=== PATIENT | male | born 1955 | race Caucasian/White ===

== ENCOUNTER 2017-11-08 11:15 | Inpatient (IN) | payer OTHER ==
[~2017-11-08] VITALS: Ht 190.5 cm; Wt 96.1 kg
[~2017-11-08 11:15] MED LIST: BUPROPION HCL100 MG PO; FISH OIL 1,0001 EAC3 PO; MELOXICAM15 MG PO; PERCOCET 5-3251 EACH PO; SIMVASTATIN40 MG PO; TRAZODONE HCL150 MG PO; XANAX1 MG PO
[2017-11-08] MEDS ORDERED: LIPITOR40 MG PO (11:31)
[2017-11-08] MEDS ORDERED: HYDROXYZINE PAM25 MG PO (11:31)
[2017-11-08] MEDS ORDERED: ZANAFLEX4 MG PO (11:31)
[2017-11-08] MEDS ORDERED: INDOMETHACIN75 MG PO (11:32)
[2017-11-08] MEDS ORDERED: HYDROMORPHONE HC2 MG PO (11:33)
[2017-11-08] MEDS ORDERED: ULTRAM50 MG PO (11:33)
--- NOTE | 2017-11-08 15:31 | NUR ---
PATIENT ADMITTED TO MED SURG VIA STRETCHER. PATIENT IS ALERT AND ORIENTED AND ABLE TO MOVE HIMSELF INDEPENDENTLY IN THE ROOM. PATIENT'S ABDOMINAL PAIN UPON ARRIVAL IS AT A 4/10 WHICH IS TOLERABLE FOR HIM. NG TUBE PLACED TO LIWS AND CLEAR FLUID DRAINING FROM HIS STOMACH AT THIS TIME. PATIENT'S IV FLUID HUNG AND RUNNING AT THIS TIME.
--- NOTE | 2017-11-08 16:59 | NUR ---
PATIENT ADMIT FROM ER. PATIENT TO FLOOR VIA STRETCHER. PATIENT TRANSFER TO BED BY SELF. PATIENT ASSESSMENT DONE. PATIENT DENIED NAUSEA, REPORTED 8/10 ABD PAIN. NG TUBE IN PLACE AND WAS PUT TO L/I/S. PATIENT WAS MEDICATED FOR PAIN. SKIN INTACT. ABD TENDER AND MILDLY DISTENDED, POSITIVE BOWEL TONE. LUNGS ARE CLEAR.
--- NOTE | 2017-11-08 17:08 | NUR ---
DR HANSEN IS IN ROOM TO EVALUATE PATIENT AND DISCUSS PLAN OF CARE.
--- NOTE | 2017-11-08 18:29 | NUR ---
PT IS RESTING IN BED SAFELY WITH CALL LIGHT IN REACH. PT HAS NOT BEEN ABLE TO VOID YET. PT ASKED FOR HIS XNANAX
--- NOTE | 2017-11-08 18:29 | NUR ---
PATIENT ADMIT FROM ED BY DR HANSEN FOR SBO. NG TUBE IN PLACE ON L/I/S. ABD MIDLY DISTENDED, POSITIVE BOWEL TONE. PATIENT IS A&O. PATIENT HAS SOME CHONIC BACK PAIN AND ON CHRONIC PAIN MEDS. IV FLUID D5LR @ 100ML/HR. LAB TO BE DONE IN THE AM.
--- NOTE | 2017-11-08 19:10 | NUR ---
SHIFT REPORT RECIEVED. PATIENT RESTING IN BED. COMPLAINING OF SOME DISCOMFORT FROM THE NG TUBE. IT IS HOOKED UP TO INTERMITTENT SUCTION. PATIENT DENIES NEEDS AT THIS TIME. CALL LIGHT IN REACH.
--- NOTE | 2017-11-08 19:20 | NUR ---
CONTACTED TO REQUEST CEPACOL LOZENGES. NEW ORDERS RECIEVED AND VERIFIED USING READ BACK METHOD.
--- NOTE | 2017-11-08 20:10 | NUR ---
EVENING MEDS GIVEN PER ORDER. PATIENT RESTING IN BED. AAOX3. REPORTS HIS CHRONIC BACK PAIN IS WELL CONTROLLED AT THIS TIME. DISCUSSED OPTIONS FOR PAIN CONTROL WITH HIM AND HE UNDERSTANDS WHAT IS AVAILABLE TO HIM. NO NEED FOR PRN PAIN MEDS AT THIS TIME. PATIENT DOES STATE THAT HIS THROAT IS SORE FROM THE NG TUBE, CEPACOL LOZENGE PROVIDED SOME RELIEF. THE NG TUBE IS HOOKED UP TO INTERMITTENT SUCTION AND IS PUTTING OUT A RED/BROWN SUBSTANCE. ABD IS SOFT BUT MODERATLY DISTENDED. BOWEL SOUNDS ACTIVE. LUNGS ARE CLEAR. PEDAL PULSES ARE STRONG, NO EDEMA NOTED. CMS INTACT. PATIENT REPORT OCCATIONAL NUMBNESS IN HIS TOES. LUNG SOUNDS ARE CLEAR, DIMINISHED IN THE BASED. IV FLUIDS INFUSING PER ORDER, SITE WNL.
--- NOTE | 2017-11-08 20:27 | NUR ---
ROUNDED CHARGE. PATIENT IS RESTING IN BED. NG LOW-INT SUCTION. NO NEEDS NOTED. CALL LIGHT IN REACH.
--- NOTE | 2017-11-08 21:15 | NUR ---
SCDS PLACED ON PATIENT. HE WAS UP TO THE BEDSIDE TO USE THE URNAL BUT THEN NEEDED TO HAVE A BM. PLUGGED THE NG TUBE AND ASSISTED HIM WITH THE IV POLE. PATIENT IN BATHROOM. WILL REQUEST ASSISTANCE WHEN HE IS READY.
--- NOTE | 2017-11-08 21:40 | NUR ---
PATIENT HAD SMALL LIQUID BM. PATIENT BACK IN BED. DENIES ANY NEEDS.
--- NOTE | 2017-11-08 22:45 | NUR ---
PATIENT APPEARS TO BE SLEEPING. RR 16. CALL LIGHT IN REACH.
--- NOTE | 2017-11-09 00:20 | NUR ---
PATIENT UP TO THE BATHROOM. REPORTS INCREASED ABD PAIN. 04/26. PRN PAIN MEDS PROVIDED.
--- NOTE | 2017-11-09 02:40 | NUR ---
PATIENT RESTING IN BED. URNAL EMPTIED. VS TAKEN. PATIENT HAS ORAL TEMP OF 99.8F. ENCOURAGED HIM TO COUGH AND DEEP BREATHE. PROVIDED IS FOR PATIENT TO PERFORM X5. TEMP CONTINUES TO BE 99.8F. WILL CONTINUE TO MONITOR. TEMP TURNED DOWN IN THE ROOM AND TOP COVER REMOVED. PATIENT REPORTS GOOD PAIN CONTROL AT THIS TIME. NO OTHER NEEDS. CALL LIGHT IN REACH.
--- NOTE | 2017-11-09 04:30 | NUR ---
PATIENT UP TO THE BATHROOM. HAD MORE LIQUID STOOL. COMPLAINS OF 8/10 PAIN. PRN PAIN MEDS PROVIDED. NO OTHER NEEDS AT THIS TIME.
--- NOTE | 2017-11-09 06:05 | NUR ---
MORNING VS DONE. PATIENT RESTING IN BED WATCHING TV. REPORTS GOOD PAIN CONTROL AT THIS TIME. PATIENT IS UNCOMFORTABLE WITH THE NG TUBE AND HAVING A RUNNY NOSE. DENIES NEED FOR PAIN MEDS. ABD IS MILDLY DISTENDED& TENDER. BOWEL SOUNDS ACTIVE. SCDS IN USE. NEW DRESSING APPLIED TO NOSE TO HOLD NG TUBE.
--- NOTE | 2017-11-09 06:10 | NUR ---
PATIENT SLEPT ON AND OFF THROUGHOUT THE SHIFT. NG TUBE IS HOOKED UP TO LOW INTERMITTENT SUCTION. PUTTING OUT RED/BROWN FLUID. PATIENT HAS TEMP OF 99.7F THIS AM. AWARE. ABD IS MILDLY DISTENDED, SOFT, AND TENDER. BOWEL SOUNDS ACTIVE. IV FLUIDS INFUSING, D5LR @100. PRN DILAUDID GIVEN X2. PATIENT HAS CHRONIC BACK PAIN WELL THE ABD PAIN. SBA, STEADY ON HIS FEET. SCDS. NPO WITH LOZENGES OR HARD CANDY.
--- NOTE | 2017-11-09 06:51 | NUR ---
MD ENTERED ORDERS TO MEASURE NG TUBE OUTPUT Q8H. OUTPUT HAS NOT BEEN MARKED SINCE NG WAS PLACED IN ED YESTERDAY. 600MLS ARE NOTED IN THERE AT THIS TIME.
--- NOTE | 2017-11-09 06:53 | NUR ---
PATIENT UP IN THE HALLWAY. WALKED 3 LARGE LAPS. STEADY ON HIS FEET.
--- NOTE | 2017-11-09 07:17 | NUR ---
BEDSIDE REPORT RECEIVED FROM HAILE. PATIENT AWAKE IN BED, NG TUBE IN PLACE ON L/I/S. IV SITE PATENT AND FLUID IS INFUSING WELL. PATIENT REPORTS NO NAUSEA AT THIS TIME. PATIENT WAS UP AMBULATING IN THE [address]. RESTING IN BED AT THIS TIME. CALL LIGHT IN REACH.
--- NOTE | 2017-11-09 08:40 | NUR ---
IN TO ROOM TO ASSESS PATIENT. PATIENT REPORTED 8/10 ABD PAIN. NG TUBE IN PLACE AND DRAINING CLEAR RED FLUID. PATIENT ASLO REPORTED THROAT DISCOMFORT FROM THE NG TUBE. ABD STILL MIDLY DISTENDED, POSITIVE BOWEL TONE. IV SITE PATENT AND FLUID INFUSING WELL. PATIENT IS ENCOURAGE TO AMBULATE. MORNING MEDS ADMINISTERED AND PATIENT WAS ALSO MEDICATED FOR PAIN. CALL LIGHT IN REACH.
[2017-11-09] MEDS ORDERED: ALPRAZOLAM1 MG PO (08:55)
[2017-11-09] MEDS ORDERED: DAILY MULTIPLE1 EACH PO (09:06)
--- NOTE | 2017-11-09 09:26 | NUR ---
MED REC COMPLETE
--- NOTE | 2017-11-09 09:58 | NUR ---
PT IS RESTING IN BED SAFELY WITH CALL LIGHT IN REACH. PT AGREED TO SHOWER BUT WOULD LIKE UNTIL AFTER HE IS DONE VISITING WITH HIS . PT DID NOT NEED ANYTHING ELSE AT THE MOMENT
--- NOTE | 2017-11-09 11:30 | NUR ---
PATIENT CALLED AND REQUESTED PAIN MEDS FOR / ABD/BACK PAIN. PATIENT WAS MEDICATED.NG TUBE WAS CLAMPE AND PATIENT WAS ASSISTED TO BATHROOM THEN BACK TO BED. NG TUBE WAS PUT BACK TO L/I/S. CALL LIGHT IN REACH.
--- NOTE | 2017-11-09 12:07 | NUR ---
PATIENT SITTING AT BEDSIDE, REPORTED 7/10 ABD PAIN. NG TUBE STILL IN PLACE DRAINING LIGHT RED FLUID. DENIES NAUSEA. PATIENT WAS MEDICATED FOR PAIN. RESTING AT THIS TIME. WILL CONTINUE TO MONITOR. CALL LIGHT IN REACH.
--- NOTE | 2017-11-09 13:42 | NUR ---
PT IS SITTING AT THE SIDE OF THE BED VISITING WITH FAMILY AND FRIENDS. PT DECIDED NOT TO SHOWER BUT DO A BED BATH INSTEAD. PT DID NOT NEED ANYTHING ELSE AT THE MOMENT
--- NOTE | 2017-11-09 15:00 | NUR ---
PATIENT RESTING IN BED APPEARS TO BE SLEEPING. RR EVEN/UNLABORED. NO APPARENT DISTRESS NOTED. WILL CONTINUE TO MONITOR.
--- NOTE | 2017-11-09 17:33 | NUR ---
PT IS RESTING IN BED WITH CALL LIGHT IN REACH. PT ASKED TO SPEAK TO
--- NOTE | 2017-11-09 18:30 | NUR ---
PATIENT HAD DONE WELL TODAY. HAD BEEN UP AMBULATING MULTIPLE TIME. NG TUBE IN PLACE TO L/I/S. VOIDED QS. ABD STILL MILDLY DISTENDED WITH POSITIVE BOWEL TONE. IV FLUID INFUSING WELL. 350ML OF FLUID FROM NG TUBE IN THE 8 HOURS. PATIENT STILL REPORTED THROAT DISCOMFORT DUE TO NG TUBE.
--- NOTE | 2017-11-09 19:20 | NUR ---
SHIFT REPORT RECIEVED. PATIENT RESTING IN BED. STATES HE WAS "MISERABLE" TODAY, BUT APPEARS TO BE IN GOOD SPIRITS AND MAKING JOKES. NO NEEDS AT THIS TIME.
--- NOTE | 2017-11-09 20:15 | NUR ---
SCHEDULED MEDS GIVEN PER ORDER. PATIENT REPORTS 8/10 PAIN, PRN PAIN MEDS PROVIDED. LOZENGE PROVIED FOR THROAT DISCOMFORT. NG TUBE IS PUTTING OUT MODERATE AMOUNT OF RED/BROWN OUTPUT. LUNGS ARE CLEAR. ABD IS MODERATELY DISTENDED, FIRM, TENDER, AND BOWEL SOUNDS ARE ACTIVE. NO NAUSEA. NO MORE LIQUID STOOL TODAY. PATIENT AMBULATED IN THE [place]ALLWAYS MULTIPLE TIMES TODAY AND IS REFUSING TO WEAR SCDS. EDUCATED PATIENT ON THE PURPOSE OF SCDS AND HE VERBILIZED UNDERSTANDING. IV FLUIDS INFUSING PER ORDER, SITE WNL. NO OTHER NEEDS AT THIS TIME.
--- NOTE | 2017-11-09 21:59 | NUR ---
ROUNDED CHARGE. PATIENT IS RESTING IN BED. NG LWIS. PATIENT DENIES ANY PAIN OR NAUSEA. PATIENT DENIES ANY COMMENTS, QUESTIONS, OR CONCERNS. CALL LIGHT IN REACH.
--- NOTE | 2017-11-09 23:30 | NUR ---
PRN PAIN MEDS PROVIDED FOR ABD PAIN 03/26. PATIENT COMPLAINED THAT THE BED IS NOT COMFORTABLE AND REQUEST TO MOVE TO THE COUGH. RN ADJUSTED BED SETTINGS TO MAKE IT MORE FIRM. PATIENT WILL LET ME KNOW IF THIS DOES NOT HELP. NO OTHER NEEDS AT THIS TIME.
--- NOTE | 2017-11-10 01:02 | NUR ---
patient up ambulating in the hallway. He unhooked himself from the suction and sucessfully plugged the NG tube. Discussed the importance of calling to allow RN to do that for him. He agrees to do this. Patient returned to the recliner in his room, reconnected to suction and is coloring. He denies any needs.
--- NOTE | 2017-11-10 02:00 | NUR ---
PATIENT REQUESTING PRN PAIN MEDS FOR 7/10 PAIN. PRN DILAUDID PROVIDED PER ORDERS.
--- NOTE | 2017-11-10 04:45 | NUR ---
PATIENT REQUESTING PRN PAIN MEDS FOR PAIN 7/10 IN ABD AND BACK. PATIENT IS FRUSTERATED WITH LACK OF SLEEP HE HAS HAD TONIGHT. DENIES ANY NEEDS. [facility] REGISTERED NURSE IN ROOM FOR VS.
--- NOTE | 2017-11-10 06:07 | NUR ---
PATIENT DID NOT SLEEP MUCH LAST NIGHT. HE REQUEST PRN PAIN MEDS X4. PAIN CONSISTENTLY AT 7/10. ABD APPEARS TO BE THE SAME START OF SHIFT, MODERATELY DISTENDED, TENDER, WITH ACTIVE BOWEL SOUNDS. NG TUBE IS ON LOW INTERMITTENT SUCTION, OUTPUT RECORDED Q8H, 1530 TO 2330 OUTPUT WAS 330ML. PATIENT WALKED INDEPENDENTLY IN THE HALLS AT LEAST 3 TIMES. FAMILY IN TO VISIT THIS MORNING.
--- NOTE | 2017-11-10 06:10 | NUR ---
PATIENT UP WALKING IN HALLWAYS. REQUESTING PRN PAIN MEDS. TOLD HIM THAT IT WAS NOT TIME YET AND HE STATED "I CAN WAIT, NO WORRIES". HE APPEARS TO BE IN GOOD SPIRITS.
--- NOTE | 2017-11-10 06:40 | NUR ---
ORDERED A SMALL BOWEL FOLLOW THROUGH. IMAGING CALLED. PATIENT AWARE OF THESE NEW ORDERS.
--- NOTE | 2017-11-10 07:45 | NUR ---
BEDSIDE REPORT FROM HAILE. PATIENT RESTING IN BED, REPORTS BACK AND ABD PAIN. PATIENT WAS MEDICATED. NG TUBE STILL IN PLACE. X-RAY SERIES IS IN PROGRESS. PATIENT DENIES NAUSEA.
--- NOTE | 2017-11-10 08:40 | NUR ---
IN TO PATIENT ROOM. PATIENT WAS ASSISTED TO THE BATHROOM. BACK TO BED. SHIFT ASSESSMENT DONE. NG TUBE IN PLACE AND PLUGGED AT THIS TIME FOR KUB TESTING. PATIENT REPORTED 7/10 ABD PAIN. PATIENT WWAS MEDICATED EARLIER FOR PAIN. IV SITE PATENT AND FLUID INFUSING. PATIENT DENIED NAUSEA. ABD TENDER AND MILDY DISTENDED. POSITIVE BOWEL TONE. DR HANSEN WAS IN TO SEE PATIENT EARLIER. CALL LIGHT IN REACH. WILL CONTINUE TO MONITOR.
--- NOTE | 2017-11-10 10:19 | NUR ---
PT WALKED TO BATHROOM, VOIDED, AND RETURNED TO BED. PT IS RESTING IN BED WITH CALL LIGHT IN REACH. PT DID NOT NEED ANYTHING AT THE MOMENT
--- NOTE | 2017-11-10 11:16 | NUR ---
PATIENT CALLED AND REQUEST PAIN MED FOR 8/10 BACK AND ABD PAIN. PATIENT WAS MEDICATED. PATIENT WAS ASSISTED TO BATHROOM AND HAD A BM. DENIES NAUSEA.
--- NOTE | 2017-11-10 13:57 | NUR ---
PT IS RESTING IN BED SAFELY WITH CALL LIGHT IN REACH. PT ASKED FOR SOME HARD CANDY
--- NOTE | 2017-11-10 15:23 | NUR ---
PATIENT RESTING IN THE CHAIR, REPORT THROAT DISCOMFORT DUE TO NG TUBE AND ABD PAIN RATE @ 7/10. PATIENT WAS MEDICATED AND CAFEPOL AND HARD CANDY GIVEN FOR COMFORT.CALL LIGHT IN REACH
--- NOTE | 2017-11-10 16:00 | NUR ---
PATIENT IS BACK TO BED RESTING. NG TUBE IN PLACE. NO OTHER REQUEST
--- NOTE | 2017-11-10 18:02 | NUR ---
PATIENT RESTING IN BED AT THIS TIME, APPEARS TO BE SLEEPING. NO APPARENT DISTRESS. NG TUBE IN PLACE TO L/I/S.
--- NOTE | 2017-11-10 18:23 | NUR ---
PATIENT HAD A FAIR DAY. KUB THIS AM POSITIVE FOR PARTIAL SBO. NG TUBE IN PLACE TO L/I/S. IV SITE PATENT AND FLUID INFUSING @ 100. PATIENT HAD MULTIPLE BMs TODAY. DIDAUDID FOR PAIN CONTROL. PATIENT HAD CHRONIC BACK PAIN. ABD MIDLY DISTENDED, POSITIVE BOWEL TONE. UP TO CHAIR AND AMBULATE.
--- NOTE | 2017-11-10 18:41 | NUR ---
PT IS RESTING IN BED WITH CALL LIGHT IN REACH AND EYES CLOSED, RESPERATIONS EVEN. PT AWOKE FOR VITALS THEN FELL BACK ASLEEP
--- NOTE | 2017-11-10 19:20 | NUR ---
RECEIVED REPORT FROM RN. PATIENT IS RESTING IN BED, BREATHING IS EVEN AND UNLABORED. FLACC SCORE OF 0. NGT TO LIS. CALL LIGHT WITHIN REACH.
--- NOTE | 2017-11-10 21:15 | NUR ---
PATIENT RESTING IN BED, BREATHING IS EVEN AND UNLABORED. REPORTS 8/10 PAIN IN BACK, PRN DILAUDID GIVEN PER EMAR. DENIES FURTHER NEEDS. ASSESSMENT DONE, SCHEDULED MEDICATIONS GIVEN. CALL LIGHT WITHIN REACH.
--- NOTE | 2017-11-10 23:18 | NUR ---
PATIENT REPORTS 8/10 PAIN IN BACK AND 5/10 PAIN IN ABD, PRN DILAUDID GIVEN PER EMAR. DENIES FURTHER NEEDS. O2 SATURATION IS 96% ON ROOM AIR, PULSE IS 91, RR IS 16. CALL LIGHT WITHIN REACH.
--- NOTE | 2017-11-11 00:33 | NUR ---
PATIENT RESTING COMFORTABLY IN BED, BREATHING IS EVEN AND UNLABORED. O2 SATURATION IS 92% ON ROOM AIR. FLACC SCORE OF 0. CALL LIGHT WITHIN REACH.
--- NOTE | 2017-11-11 01:53 | NUR ---
PATIENT REPORTS 7/10 PAIN IN BACK, 5/10 PAIN IN ABD. PRN DILAUDID GIVEN PER EMAR. DENIES FURTHER NEEDS. ASSESSMENT DONE. CALL LIGHT WITHIN REACH.
--- NOTE | 2017-11-11 03:57 | NUR ---
PATIENT REPORTS 8/10 PAIN IN BACK. PRN DILAUDID GIVEN PER EMAR. DENIES FURTHER NEEDS. CALL LIGHT WITHIN REACH.
--- NOTE | 2017-11-11 04:53 | NUR ---
PATIENT'S NIGHT WAS UNEVENTFUL. HE HAS BEEN RESTING IN BED THROUGHOUT SHIFT. VSS, URINE OUTPUT QS. PAIN WELL CONTROLLED. BOWEL TONES ARE ACTIVE, PATIENT HAS HAD NO NAUSEA THIS SHIFT, ABD MILDLY TENDER, MILDLY DISTENDED. NGT HAS MINIMAL DRAINAGE. SBA, IV FLUIDS INFUSING. NO ACUTE CHANGES.
--- NOTE | 2017-11-11 06:14 | NUR ---
PATIENT RESTING IN BED, BREATHING IS EVEN AND UNLABORED. REPORTS 8/10 PAIN IN BACK. PRN DILAUDID GIVEN. DENIES FURTHER NEEDS. NOW RESTING IN CHAIR. CALL LIGHT WITHIN REACH.
--- NOTE | 2017-11-11 07:15 | NUR ---
RECEIVED REPORT FROM DAY SHIFT RN. PT IN BED REQUESTING PAIN MEDICATION AND ANXETY MED. NG TUBE IN PLACE ON LIS. DUNCAN @ 100. CALL LGITH WITHIN REACH NO OTHER NEEDS AT THIS TIME.
--- NOTE | 2017-11-11 08:30 | NUR ---
MORNING MEDICATION GIVEN. PT IN BED FAMILY AT BEDSIDE. PT REPORTS PAIN 8/10 IN BACK. NG TUB IN PLACE ON LIS. EMESIS IS CLEAR IN COLOR. PT IS NPO AT THIS TIME. PT REQUESTING HIS LORAZAPAM THIS AM. CALL [facility] WITHIN REACH. NO OTHER NEEDS AT THIS TIME.
--- NOTE | 2017-11-11 08:34 | NUR ---
pateint was in bed, he requested medication, i reported to the nurse he needed no other assistance at the time.
--- NOTE | 2017-11-11 10:08 | NUR ---
PT VS AND I&O'S TAKEN AND DOCUMENTED. PT'S ONLY CONCERN IS WHEN HE IS GETTING HIS NG TUBE OUT. RN AWARE. PT HAS NO OTHER NEEDS AT THIS TIME. CALL LIGHT IS IN REACH.
--- NOTE | 2017-11-11 10:30 | NUR ---
PT SLEEPING ON RIGHT SIDE. TALKED ABOUT PLAN OF CARE AND NEW ORDERS RECIEVED. MORNING ASSESSMENT COMPLETE. PT BOWEL TONES ARE ACTIVE. ABDOMEN IS NONE TENDER. PT REPORTS CHRONIC BACK PAIN 8/10 IN BACK. ABDOMEN IS 3/10. PT IS A/O X3. NO OTHER NEEDS AT THIS TIME./
--- NOTE | 2017-11-11 11:00 | NUR ---
REMOVED NG TUBE. PT TOLLERATED WELL.
--- NOTE | 2017-11-11 12:12 | NUR ---
pt out walking the halls. tollerating we.. lunch at bedside. drank juice without n/v.
--- NOTE | 2017-11-11 13:20 | NUR ---
pt sleeping in bed. tollerated lunch well. ate 100%. no needs at this time. call latoya stout.
--- NOTE | 2017-11-11 14:12 | NUR ---
PT IS BACK TO BED FROM BATHROOM. PT'S VS AND I&O'S TAKEN AND DOCUMENTED. PT HAS FRESH ICE WATER ON HIS SIDE TABLE. PT HAS NO NEEDS AT THIS TIME. INFORMED PT TO CALL IF HE NEEDS ANYTHING. CALL LIGHT IS IN REACH.
--- NOTE | 2017-11-11 17:01 | NUR ---
PT WALED 4 LAPS IN THE [place]. REPORTS PAIN IN ABD 11/24. NO N/V TOLLERATED WELL. DINNER ORDERED. BACK PAIN REPEPORTED AT 03/26. 1.5 DILAUDID GIVEN. CALL [facility] WITH[facility] REACH. NO OTHER NEEDS AT THIS TIME.
--- NOTE | 2017-11-11 18:03 | NUR ---
PT WAS IN BED, HAD DINNER, VS DONE, PT NEEDED NOTHING ELSE AT THE TIME
--- NOTE | 2017-11-11 19:40 | NUR ---
BEDSIDE REPORT RECEIVED FROM EMIR. PATIENT RESTING IN BED REPORTS 8/10 BACK PAIN AND PATIENT WAS MEDICATED BY EMIR DURING REPORT. PATIENT DENIES NAUSEA AND REPORT MILD ABD TENDERNESS. IV FLUID INFUSING WELL. CALL LIGHT IN REACH.
--- NOTE | 2017-11-11 21:43 | NUR ---
IN TO ROOM TO ASSESS PATIENT. PATIENT RESTING IN BED REPORTS 7/10 BACK PAIN AND MILD ABD TENDERNESS. ABD SOFT AND POSITIVE BOWEL TONE. LUNGS CLEAR. PALPABLE PERIPHERAL PULSES. IV SITE PATENT AND FLUID INFUSING WELL. PATIENT WAS MEDICATED FOR PAIN. PM MEDS ADMINISTERED. PATIENT DENIES ANY NAUSEA. TOLERATED FULL LIQUID WELL. RESTING IN BED AT THIS TIME.WILL CONTINUE TO MONITOR
--- NOTE | 2017-11-12 00:17 | NUR ---
PATIENT CALLED AND REQUESTED PAIN MED. PATIENT WAS MEDICATED. RESTING IN BED AT THIS TIME. CALL LIGHT IN REACH.
--- NOTE | 2017-11-12 01:16 | NUR ---
IN ROOM TO CHECK ON PATIENT. PATIENT APPEARS TO BE SLEEPING AT THIS TIME. RR EVEN/UNLABORED. NO APPARENT DISTRESS. CALL LIGHT IN REACH. PATIENT WAS MEDICATED FOR PAIN EARLIER. WILL CONTINUE TO MONITOR.
--- NOTE | 2017-11-12 03:05 | NUR ---
PATIENT RESTING IN BED QUIETLY. NO APPARENT DISTRESS NOTED, RR EVEN/UNLABORED. CALL LIGHT IN REACH.
--- NOTE | 2017-11-12 05:39 | NUR ---
PATIENT HAD AN UNEVENTFUL NIGHT SLEPT ON AND OFF. NO NAUSEA. PAIN CONTROL WITH IV DILAUDID. BOWEL TONE ACTIVE ON ALL 4 QUADRANTS, ABD SOFT. LUNGS CLEAR. ADVANCED TO SOFT DIET. TOLERATED FULL LIQUID WELL YESTERDAY. IV SITE PATENT AND FLUID (D5LR) INFUSING @ 1OOML/HR. JANUARY D/C HOME TODAY.
--- NOTE | 2017-11-12 07:08 | NUR ---
recieved report from manager primary care rn. pt in bed, sl. ordered breakfast. requsted morning meds before being dischearged. personal items and call light at bedside. no other needs at this time.
--- NOTE | 2017-11-12 07:50 | NUR ---
PT IS UP IN THE CHAIR FOR BREAKFAST. PT IS ANXIOUS TO LEAVE, BUT STATES HE HAS NO NEEDS AT THIS TIME. CALL LIGHT IS IN REACH.
--- NOTE | 2017-11-12 08:54 | NUR ---
PT AWAKE AND ALERT IN ROOM. IVF DISCONTINUED PATIENT IS DISCHARGING HOME. SCHEDULED MEDS GIVEN THIS MORNING. PAIN 8/10 IN BACK. WILL TALK WITH CHARGE NURSE ABOUT GIVING IV PAIN MEDS BEFORE DISCHARGE. PATIENT WATCHING TELEVISION NOW.
--- NOTE | 2017-11-12 09:18 | NUR ---
DC'D IV. GAVE DISCHARGE INSTRUCRTIONS. ASSESSMENT COMPLETE. LUNGS CLEAR HEART SOUND REGULAR. RR WNL. CHRONIC PAIN 04/26. BOWEL TONES ACTIVE. NO N/V. BOWEL MOVEMETN TODAY.
--- NOTE | 2017-11-14 06:10 | DS ---
[facility] [address], [place] [address] Signed ADMISSION DATE: 11/08/2017 DISCHARGE DATE: 11/12/2017 FINAL DIAGNOSIS: Resolved partial small bowel obstruction. PROCEDURES: 1. CT scan of abdomen and pelvis. 2. Small bowel follow through. HISTORY OF PRESENT ILLNESS: Tiffanie is a 62-year-old gentleman who underwent a radical prostatectomy in March [address] Kevin Martin. He finished up his radiation therapy in August 2017. He has been doing fine. He developed some generalized abdominal pain with nausea, but no vomiting. He came to emergency room for evaluation. HOSPITAL COURSE: Kevin was seen in the ER and found to have good vital signs. His abdomen was a little distended and mildly diffusely tender with a small umbilical hernia. White count was at 10.[address] scan showed what looked like a small bowel obstruction in the central abdomen. He had a little mild ascites as well, but no metastatic disease. Therefore, he was admitted to the hospital under my service with an NG tube. We treated him conservatively with inhaled antibiotics. He improved each day. 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 I did review that with him. We then ordered a small bowel followthrough and he did well. It looked like maybe there was still a partial obstruction. We went ahead and pulled the NG tube and started him on clear liquid diet and advanced that and he has done quite well. Today, he feels like he is at his baseline. His abdominal exam was benign. It is soft and flat, nontender and is ready to go home. DISCHARGE PLANS AND MEDICATIONS: Tiffanie will be discharged to home with no new medications. He can resume all his previous medications. He is welcome to take diet as tolerated. He can perform his activities of daily living as usual. He is welcome to see me in the office as needed. He will maintain his usual follow up with his primary care provider and his urologist. He has expressed understanding and agrees with the above plan. Electronically Signed By: ORIN LEONARD MD 11/14/17 0610 PATIENT NAME: TIFFANIE RODRIGUEZ DISCHARGE SUMMARY DATE OF : 51 REPORT #: [id number] PHYSICIAN: ORIN LEONARD MD PCP: GARRY WESLEY MD REPORT IS CONFIDENTIAL AND NOT TO BE RELEASED WITHOUT AUTHORIZATION [address] [address] Signed Orin Leonard MD [facility]/MODL /[id number] cc: MD Kevin Oliveira MD Christopher Lundquist, MD Copies: ORIN LEONARD MD, JOHN MD LUNDQUIST, CHRISTOPHER MD ~ Electronically Signed By: ORIN LEONARD MD 11/14/17 0610 PATIENT NAME: TIFFANIE RODRIGUEZ DISCHARGE SUMMARY DATE OF : 51 REPORT #: [id number] PHYSICIAN: ORIN LEONARD MD PCP: GARRY WESLEY MD REPORT IS CONFIDENTIAL AND NOT TO BE RELEASED WITHOUT AUTHORIZATION
--- NOTE | 2017-11-14 06:10 | CONS ---
[facility] [address], [place] [address] Signed DATE OF CONSULTATION: 11/08/2017 CHIEF COMPLAINT: Generalized abdominal pain with nausea. HISTORY OF PRESENT ILLNESS: Tiffanie is a 62-year-old gentleman, who just had his radical prostatectomy in March 2017, and finished up his radiation treatment in August 2017. In general, he has been doing well. However, yesterday he developed generalized abdominal pain with nausea, but no vomiting. He came to the emergency room for evaluation. White count is borderline at 10.3. His abdomen was mildly distended, and mildly and diffusely tender. A CT scan confirmed small bowel obstruction with some mild ascites, but no evidence of any metastatic disease. In the meantime, an NG tube was then placed and confirmed with a chest x-ray. He has been admitted to the floor and I was asked to see him as a general surgeon on-call. PAST MEDICAL HISTORY: Prostate cancer, abdominal aortic aneurysm 3.4 cm, atherosclerosis of the bilateral iliac arteries, diverticulosis, hypercholesterolemia, and anxiety. PAST SURGICAL HISTORY: Includes his radical prostatectomy in March 2017, with Dr. Mary Martin, and radiation therapy with Dr. Lindsay Joshi. He has also had a lump removed from his groin. SOCIAL HISTORY: Still smokes half pack of cigarettes a day. He does not drink. Dr. Pranav Wesley, is his primary care provider. His lifelong friend is Belle Barber, at [phone]. 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 He has two children. He prefers the [facility], in [place]. FAMILY HISTORY: He was an orphan, but he knows his brother of non-Hodgkin's lymphoma. His other brother had a brain cancer. Mom had breast cancer. REVIEW OF SYSTEMS: He had 10 systems reviewed and really nothing new. ALLERGIES: Codeine. MEDICATIONS: 1. Alprazolam. 2. Trazodone. Electronically Signed By: ORIN LEONARD MD 11/14/17 0610 PATIENT NAME: TIFFANIE RODRIGUEZ CONSULTATION DATE OF : 51 REPORT #: [id number] PHYSICIAN: ORIN LEONARD MD PCP: PRANAV WESLEY MD REPORT IS CONFIDENTIAL AND NOT TO BE RELEASED WITHOUT AUTHORIZATION [facility] [address], [place] [address] Signed 3. Fish oil. 4. Hydroxyzine. 5. Atorvastatin. 6. Tizanidine. 7. Indomethacin. 8. Tramadol. 9. Dilaudid. PHYSICAL EXAMINATION: VITAL SIGNS: Blood pressure 134/65, his heart rate is 87, respiratory rate 16, temperature is 97.4. He is 96% on room air. He is 6 feet 3 inches, and 86 kg. GENERAL: Tiffanie is a 62-year-old gentleman, lying supine in his hospital bed, watching TV. He has an NG-tube in place with generally clear gastric fluid. He does not appear systemically ill or toxic. He appears to be a good historian. LUNGS: Clear to auscultation bilaterally. HEART: Regular rate and rhythm. ABDOMEN: Mildly distended, mildly and diffusely tender. He has a small incarcerated umbilical hernia. LABORATORY DATA: His white blood cell count is 10.3, hemoglobin 13, neutrophils 77. His BUN 24, creatinine 1.72. Urinalysis is equivocal. His liver function tests are negative. Lipase negative. Albumin is 4.2. RADIOGRAPHIC STUDIES: A chest x-ray shows the NG-tube in his stomach with dilated small bowel loops, lungs are clear. CT scan of the abdomen and pelvis shows a small bowel obstruction, possibly in the central abdomen with some mild ascites, and no evidence of any mass. ASSESSMENT AND PLAN: Tiffanie is a 62-year-old gentleman, who presents with a small bowel obstruction after his radical prostatectomy and radiation therapy. We are going to treat him conservatively for a few days and if does not improve, he will end up needing surgery. I have reviewed this with Tiffanie. He has expressed understanding and agrees with above plan. Orin Leonard MD ALB/MODL /[id number] Electronically Signed By: ORIN LEONARD MD 11/14/17 0610 PATIENT NAME: TIFFANIE RODRIGUEZ CONSULTATION DATE OF : 51 REPORT #: [id number] PHYSICIAN: ORIN LEONADR MD PCP: PRANAV WESLEY MD REPORT IS CONFIDENTIAL AND NOT TO BE RELEASED WITHOUT AUTHORIZATION [address] [address] Signed cc: MD Mary Campos MD Andrew L Bower, MD Kristen M O'Donnell, MD Copies: PRANAV WESLEY MD,AMRY LEONARD,ORIN JOSHI,LINDSAY Hopper MD ~ Electronically Signed By: ORIN LEONARD MD 11/14/17 0610 PATIENT NAME: TIFFANIE RODRIGUEZ DREW CONSULTATION DATE OF : 51 REPORT #: [id number] PHYSICIAN: ORIN LEONARD MD PCP: PRANAV WESLEY MD REPORT IS CONFIDENTIAL AND NOT TO BE RELEASED WITHOUT AUTHORIZATION
== END 2017-11-12 09:25 | disposition home or self-care (01) | DRG 390 ==
LOC: ED 11:15 → MS 14:29
PROVIDERS: ADMIT Colon & Rectal Surgery
PROC: 0D9670Z Drainage of Stomach with Drainage Device, Via Natural or Artificial Opening (ICD-10-PCS; principal; 2017-11-08)
DX: K56.600 Partial intestinal obstruction, unspecified as to cause (principal); K42.9 Umbilical hernia without obstruction or gangrene; I71.4 Abdominal aortic aneurysm, without rupture; F41.9 Anxiety disorder, unspecified; E78.00 Pure hypercholesterolemia, unspecified; K57.90 Diverticulosis of intestine, part unspecified, without perforation or abscess without bleeding; F17.210 Nicotine dependence, cigarettes, uncomplicated; I70.209 Unspecified atherosclerosis of native arteries of extremities, unspecified extremity; Z85.46 Personal history of malignant neoplasm of prostate; Z92.3 Personal history of irradiation
CPT/HCPCS: 36415; 43752; 51798; 71045; 74176; 74250; 80048; 80053; 81001; 83690; 83735; 84100; 85025; 94660; 96361; 96374; 96375; 99285; 99407; J1170; J1200; J1644; J2060; J2405; J7030; J7120

== ENCOUNTER 2020-05-08 17:03 | Emergency (ER) | payer MEDICARE, OTHER ==
[~2020-05-08] VITALS: Ht 190.5 cm; Wt 85.7 kg
--- OUTSIDE RECORDS SUMMARY | ~2020-05-08 | XMS | Encounter Summary ---
Demographics + + + | Address | [address] | | | [place] [address] | + + + | Home Phone | | + + + | Preferred Language | Unknown | + + + | Marital Status | Single | + + + | Jew Affiliation | Unknown | + + + | Race | White | + + + | Ethnic Group | Not or | + + + Author + + + | Author | [facility] | | | and [place] | + + + | Organization | [facility] | | | and [place] | + + + | Address | Unknown | + + + | Phone | Unavailable | + + + Support + + +---------+ + | Name | Relationship | Address | Phone | + + +---------+ + | Belle Kelley | ECON | Unknown | | + + +---------+ + Care Team Providers + +------+ + | Care Overlock Operator Name | Role | Phone | + +------+ + | Pranav Auguste MD | PCP | | + +------+ + Encounter Details +--------+ + + + + | Date | Type | Department | Care Team | Description | +--------+ + + + + | 07/10/ | Episode | [facility] | Brittany Rapp, | | | 2018 | Changes | GASTROENTEROLOGY | RN | | | | | [address] [place] | | | | | | [address] [place] | | | | | | [address] | | | | | | [phone] | | | +--------+ + + + + Social History + + + +--------+------+ | Tobacco Use | Types | Packs/Day | Years | Date | | | | | Used | | + + + +--------+------+ | Current Every Day | Cigarettes | 1 | 49 | | | Smoker | | | | | + + + +--------+------+ + +---+---+---+ | Smokeless Tobacco: | | | | | Former User | | | | + +---+---+---+ + + | Comments: smoking 1 cigarette per day | + + + + +---------+ + | Alcohol Use | Drinks/Week | oz/Week | Comments | + + +---------+ + | No | | | Quit drinking in | | | | | 2007 | + + +---------+ + + + + | Sex Assigned at | Date Recorded | | | | + + + | Not on file | | + + + documented as of this encounter Plan of Treatment +--------+ + + + + | Date | Type | Specialty | Care Team | Description | +--------+ + + + + | 02/02/ | Appointment | Radiation Oncology | Brynn Bahena | | | 2020 | | | MD Marcelo [address] | | | | | | [address] [place] | | | | | | [phone] | | | | | | | | +--------+ + + + + documented as of this encounter Visit Diagnoses Not on filedocumented in this encounter"
--- OUTSIDE RECORDS SUMMARY | ~2020-05-08 | XMS | Clinical Summary ---
Demographics + + + | Address | [address] | | | [place] [address] | + + + | Home Phone | | + + + | Preferred Language | Unknown | + + + | Marital Status | Single | + + + | Buddhist Affiliation | Unknown | + + + | Race | White | + + + | Ethnic Group | Not or | + + + Author + + + | Author | [facility] | | | and [place] | + + + | Organization | [facility] | | | and [...] Team Providers + +------+ + | Care Burn Out Tender Lace Name | Role | Phone | + +------+ + | Darlin Jain MD | PCP | | + +------+ + Allergies + + + + + + | Active Allergy | Reactions | Severity | Noted | Comments | | | | | Date | | + + + + + + | Codeine | Nausea Only | Low | 03/29/20 | | | | | | 17 | | + + + + + + Medications + + + +---------+------+------+-------+ | Medication | Sig | Dispensed | Refills | Star | End | Statu | | | | | | t | Date | s | | | | | | Date | | | + + + +---------+------+------+-------+ | atorvaSTATin | Take 40 mg by mouth | | 0 | 06/2 | | Activ | | (LIPITOR) 40 mg | nightly. | | | 4/20 | | e | | tablet | | | | 17 | | | + + + +---------+------+------+-------+ | tiZANidine | Take 4 mg by mouth 2 | | 0 | 06/0 | | Activ | | (ZANAFLEX) 4 mg | times daily. | | | 8/20 | | e | | tablet | | | | 17 | | | + + + +---------+------+------+-------+ | Loratadine 10 MG | Take 10 mg by mouth | | 0 | | | Activ | | CAPS | Daily. | | | | | e | + + + +---------+------+------+-------+ | fish oil 1,000 mg | Take 2,000 mg by | | 0 | | | Activ | | capsule | mouth nightly. | | | | | e | + + + +---------+------+------+-------+ | Multiple Vitamin | Take 1 tablet by | | 0 | | | Activ | | (MULTI-VITAMIN PO) | mouth Daily. | | | | | e | + + + +---------+------+------+-------+ | polyethylene | Take 17 g by mouth | | 0 | | | Activ | | glycol (MIRALAX) | nightly as needed. | | | | | e | | powder | | | | | | | + + + +---------+------+------+-------+ | hydrOXYzine | Take 25 mg by mouth | | 0 | 06/2 | | Activ | | hydrochloride | every 6 hours as | | | 02/03 | | e | | (ATARAX) 25 mg | needed. | | | 18 | | | | tablet | | | | | | | + + + +---------+------+------+-------+ | diclofenac | Take 1 tablet by | | 0 | 07/1 | | Activ | | (VOLTAREN) 50 mg EC | mouth 2 times daily. | | | 12/04 | | e | | tablet | | | | 19 | | | + + + +---------+------+------+-------+ | ALPRAZolam (XANAX) | Take 0.5 mg by mouth | | 0 | 06/0 | | Activ | | 1 MG tablet | 2 times daily. | | | 12/04 | | e | | | | | | 19 | | | + + + +---------+------+------+-------+ | DULoxetine | Take 30 mg by mouth | | 0 | 06/2 | | Activ | | (CYMBALTA) [address] | Daily. | | | 7/20 | | e | | capsule | | | | 19 | | | + + + +---------+------+------+-------+ | rOPINIRole | Take 1 tablet by | | 0 | 07/1 | | Activ | | (REQUIP) 3 MG tablet | mouth nightly. | | | 3/20 | | e | | | | | | 19 | | | + + + +---------+------+------+-------+ | traZODone | Take 1 tablet by | | 0 | 02/1 | | Activ | | (DESYREL) 150 MG | mouth nightly. | | | 8/20 | | e | | tablet | | | | 19 | | | + + + +---------+------+------+-------+ | oxybutynin | Take 1 tablet by | 30 | 5 | 08/3 | | Activ | | (DITROPAN-XL) 10 MG | mouth Daily. | tablet | | 0/20 | | e | | 24 hr tablet | | | | 19 | | | + + + +---------+------+------+-------+ +---+ + | | Additional | | | InformationPatient | | | taking differently: | | | 20 mg Oral DAILY, | | | Reported on | | | 02/02/2020 9:47 AM | +---+ + + + +---+---+------+---+-------+ | cyclobenzaprine | Take 1 tablet by | | 0 | 10/18 | | Activ | | (FLEXERIL) 10 mg | mouth Twice daily | | | 04/05 | | e | | tablet | as needed. | | | 20 | | | + + +---+---+------+---+-------+ | divalproex | Take 500 mg by mouth | | 0 | 04/2 | | Activ | | (DEPAKOTE ER) 500 mg | Daily. | | | 10/06 | | e | | 24 hr tablet | | | | 20 | | | + + +---+---+------+---+-------+ | oxyCODONE | Take 7.5 mg by mouth | | 0 | 04/2 | | Activ | | (ROXICODONE) 15 mg | EVERY 4 TO 6 HOURS | | | 10/06 | | e | | immediate release | NEEDED. | | | 20 | | | | tablet | | | | | | | + + +---+---+------+---+-------+ Active Problems + + + | Problem | Noted Date | + + + | Urinary tract infection symptoms | 04/09/2019 | + + + | Abdominal aneurysm | 12/02/2018 | + + + | Adrenal nodule | 12/02/2018 | + + + | History of colonic polyps | 07/29/2018 | + + + | History of prostate cancer | 07/29/2018 | + + + | Constipation | 07/29/2018 | + + + | History of small bowel obstruction | 07/29/2018 | + + + | Generalized abdominal pain | 04/02/2018 | + + + | Depression with anxiety - Anxiolytic Use | 03/29/2017 | + + + | Prostate Cancer - Clinical [facility] [place] 4+3 carcinoma | 03/29/2017 | + + + + + | Overview: PSA was 4.11 October 2016 with a repeat PSA of 4.23 | | and normal urinalysis 01/11/17. His prostate had a raised | | slightly fixed left inferior 10 mm nodule. Transrectal | | ultrasound 01/25/17 measured a 22 cc gland. Clinical [facility] [place] | | 4+3 carcinoma is recovered with dominant disease in the left mid | | and left inferior peripheral zone, but a tiny percentage core | | positive in the right superior gland. Bicalutamide was initiated | | 02/03/17. | + + + + + | Nodular prostate with urinary obstruction | 03/29/2017 | + + + | Smoker - Daily | 03/29/2017 | + + + Resolved Problems + + + + | Problem | Noted | Resolved | | | Date | Date | + + + + | Recovering alcoholic in remission | 03/29/20 | | | | 17 | 8 | + + + + Encounters +--------+---------+ + + + | Date | Type | Specialty | Care Team | Description | +--------+---------+ + + + | 05/07/ | Office | Neurosurgery | Jules Simmons, | Chronic midline low | | 2020 | Visit | | PET CAREGIVER | back pain without | | | | | | sciatica (Primary | | | | | | Dx); Degenerative | | | | | | disc disease, | | | | | | lumbar; Lumbar facet | | | | | | arthropathy | +--------+---------+ + + + | 03/26/ Office | Neurosurgery | Jules Simmons, | Chronic midline low | | 2020 | Visit | | PET CAREGIVER | back pain without | | | | | | sciatica (Primary | | | | | | Dx); Lumbar facet | | | | | | arthropathy; | | | | | | Degenerative disc | | | | | | disease, lumbar | +--------+---------+ + + + from Last 3 Months Immunizations + + + + | Name | Administration Dates | Next Due | + + + + | INFLUENZA PF 4Y OR | 07/04/2017 | | | >,QUAD DERIVED FROM | | | | TISS-CULT | | | + + + + | INFLUENZA PF | 06/16/2016 | | | QUAD(PED/ADOL/ADULT) | | | | ,PSKT or VIAL | | | + + + + | INFLUENZA PF | 08/01/2014, 07/18/2013 | | | TRIVALENT(PED/ADOL/A | | | | DULT), PSKT | | | + + + + | INFLUENZA, | 07/04/2017, 08/01/2014, 07/18/2013 | | | UNSPECIFIED | | | | FORMULATION | | | + + + + | ZOSTER, 1 DOSE | 08/07/2014 | | | (ZOSTAVAX) | | | + + + + Family History + + +------+ + | Medical History | Relation | Name | Comments | + + +------+ + | Brain cancer | Brother | | | + + +------+ + | Lymphoma | Brother | | | + + +------+ + | Cancer | Mother | | breast, brain | + + +------+ + | Lymphoma | Mother | | Hodgkin's | + + +------+ + + +------+ + + | Relation | Name | Status | Comments | + +------+ + + | Brother | | | | + +------+ + + | Brother | | | | + +------+ + + | Father | | | | + +------+ + + | Mother | | | | + +------+ + + Social History + + + +--------+ + | Tobacco Use | Types | Packs/Day | Years | Date | | | | | Used | | + + + +--------+ + | Former Smoker | Cigarettes | 0.25 | 47 | Quit: 09/17/2018 | + + + +--------+ + + +---+---+---+ | Smokeless Tobacco: | | | | | Former User | | | | + +---+---+---+ + + | Tobacco Cessation: Ready to Quit: Yes | + + + + +---------+ + [...] on file | | + + + Last Filed Vital Signs + + + + + | Vital Sign | Reading | Time Taken | Comments | + + + + + | Blood Pressure | 134/82 | 05/07/2020 1:10 PM | | | | | PDT | | + + + + + | Pulse | 87 | 05/07/2020 1:10 PM | | | | | PDT | | + + + + + | Temperature | 36.4 C (97.5 F) | 04/09/2019 11:06 AM | | | | | PDT | | + + + + + | Respiratory Rate | 16 | 04/09/2019 11:06 AM | | | | | PDT | | + + + + + | Oxygen Saturation | 97% | 04/09/2019 11:06 AM | | | | | PDT | | + + + + + | Inhaled Oxygen | - | - | | | Concentration | | | | + + + + + | Weight | 79.5 kg (175 lb 4.8 | 05/07/2020 1:10 PM | | | | oz) | PDT | | + + + + + | Height | 188 cm (6' 2") | 05/07/2020 1:10 PM | | | | | PDT | | + + + + + | Body Mass Index | 22.51 | 05/07/2020 1:10 PM | | | | | PDT | | + + + + + Plan of Treatment +--------+ + + + + | Date | Type | Specialty | Care Team | Description | +--------+ + + + + | 02/02/ | Appointment | Radiation Oncology | Brynn Bahena | | | 2020 | | | MD Marcelo [address] | | | | | | [address] [place] | | | | | | [address] | | | | | | | | +--------+ + + + + + + + + + | Health Maintenance | Due Date | Last | Comments | | | | Done | | + + + + + | Hepatitis C | | | | | Screening | 3 | | | + + + + + | Med Mgmt: ALT | | | | | | 3 | | | + + + + + | Med Mgmt: AST | | | | | | 3 | | | + + + + + | Med Mgmt: BUN | | | | | | 3 | | | + + + + + | Med Mgmt: Cr | | | | | | 3 | | | + + + + + | Med Mgmt: HCT | | | | | | 3 | | | + + + + + | Med Mgmt: HGB | | | | | | 3 | | | + + + + + | Med Mgmt: PLT | | | | | | 3 | | | + + + + + | Med Mgmt: RBC | | | | | | 3 | | | + + + + + | Med Mgmt: Valproic | | | | | Acid | 3 | | | + + + + + | Med Mgmt: WBC | | | | | | 3 | | | + + + + + | Med Mgmt: eGFR | | | | | | 3 | | | + + + + + | Medication | | | | | Management | 3 | | | + + + + + | Urine Drug Screening | | | | | | 9 | | | + + + + + | Vaccine: | | | | | Dtap/Tdap/Td (1 - | 2 | | | | Tdap) | | | | + + + + + | Vaccine: Zoster (2 | | 08/07/20 | | | of 3) | 5 | 14 | | + + + + + | Adult Annual | | | | | Wellness Visit | 7 | | | + + + + + | AAA Screening | | 06/06/20 | | | | 8 | 18 | | + + + + + | Vaccine: | | | | | Pneumococcal 65+ (1 | 8 | | | | of 1 - PPSV23) | | | | + + + + + | Vaccine: Influenza | | 07/10/20 | | | (#1) | 0 | 19, | | | | | 07/04/20 | | | | | 17, | | | | | 07/04/20 | | | | | 17, | | | | | Addition | | | | | al | | | | | history | | | | | exists | | + + + + + | Colorectal Cancer | | 07/31/20 | | | Screening | 3 | 18, | | | (Colonoscopy) | | 07/31/20 | | | | | 18 | | + + + + + Results Not on filefrom Last 3 Months Insurance + +--------+ +--------+ +---------+--------+ | Payer | Benefi | Subscriber | Effect | Phone | Address | Type | | | t Plan | ID | loren | | | | | | / | | Dates | | | | | | Group | | | | | | + +--------+ +--------+ +---------+--------+ | MEDICARE | MEDICA | [id number] | | [phone] | | Medica | | | RE | | 018-Pr | 5 | | re | | | PART A | | esent | | | | | | AND B | | | | | | + +--------+ +--------+ +---------+--------+ | MEDICARE | MEDICA | [id number] | | [phone] | | Medica | | | RE | | 018-Pr | 5 | | re | | | PART A | | esent | | | | | | AND B | | | | | | + +--------+ +--------+ +---------+--------+ | [place]ID [place] | MEDICA | [id number] | | [phone] | | Medica | | | ID | | 018-Pr | 2 | | id | | | [place] | | esent | | | | + +--------+ +--------+ +---------+--------+ | [place] | MEDICA | [id number] | | [phone] | | Medica | | | ID | | 020-Pr | 2 | | id | | | [place] | | esent | | | | + +--------+ +--------+ +---------+--------+ + +--------+ +--------+ + + | Guarantor Name | Accoun | Relation to | Date | Phone | Billing Address | | | t Type | Patient | of | | | | | | | | | | + +--------+ +--------+ + + | Pablito Hollins | Person | Self [birth year] | [address] | | | al/Fam | | 1955 | [phone] | [place] [address] | | | roman | | | 1 (Home) | | + +--------+ +--------+ + + | Pablito Hollins | Person | Self [birth year] | | [address] | | | al/Fam | | 1955 | [phone] | [place] [address] | | | roman | | | 1 (Home) | | + +--------+ +--------+ + + Advance Directives + + + + + | Type | Date Recorded | Patient | Explanation | | | | Communication Specialist | | + + + + + | Power of | | | | | Burlap Man | | | | + + + + + | Advance | 03/30/2017 5:56 | | | | Directive | AM | | | + + + + + | Advance | | | | | Directive | | | | + + + + + + + + + + | Code Status | Date | Date | Comments | | | Activated | Inactivated | | + + + + + | Full Code | 03/30/2017 | 04/01/2017 | | | | 12:54 PM | 2:01 PM | | + + + + +
--- OUTSIDE RECORDS SUMMARY | ~2020-05-08 | XMS | Encounter Summary ---
Demographics + + + | Address | [address] | | | [place] [address] | + + + | Home Phone | | + + + | Preferred Language | Unknown | + + + | Marital Status | Single | + + + | Shinto Affiliation | Unknown | + + + | Race | White | + + + | Ethnic Group | Not or | + + + Author + + + | Author | [facility] | | | and [place] | + + + | Organization | [facility] | | | and [...] Team Providers + +------+ + | Care Swamper Name | Role | Phone | + +------+ + | Pranav Auguste MD | PCP | | + +------+ + Reason for Visit Diagnostic/Screening (Routine) +--------+--------+ + + + + | Status | Reason | Specialty | Diagnoses / | Referred By | Referred To | | | | | Procedures | Contact | Contact | +--------+--------+ + + + + | Closed | | Radiology | Procedures | Provider, | | | | | | US Guided | Historical, | | | | | | Biopsy | [address] | | | | | | [address] | | | | | | | [place] | | | | | | | [address] | | +--------+--------+ + + + + Encounter Details +--------+ + + + + | Date | Type | Department | Care Team | Description | +--------+ + + + + | 07/11/ | Imaging | [facility] | Provider, | | | 2017 | Exam | [facility] | [address] | | | | | IMAGING [address] | | | | | [address] | [place] [address] | | | | | [place] [address] | | | | | | [phone] | | | +--------+ + + + + Social History + +-------+ +--------+------+ | Tobacco Use | Types | Packs/Day | Years | Date | | | | | Used | | + +-------+ +--------+------+ | Never Assessed | | | | | + +-------+ +--------+------+ + + + | Sex Assigned at [...] | | 2020 | | | MD Ruchi [address] | | | | | | [address] [place] | | | | | | [address] | | | | | | | | +--------+ + + + + documented as of this encounter Procedures + +--------+ + + + | Procedure Name | Priori | Date/Time | Associated Diagnosis | Comments | | | ty | | | | + +--------+ + + + | US GUIDED BIOPSY | Routin | 01/25/2017 | | Results for this | | | e | 1:10 PM | | procedure are in the | | | | PDT | | results section. | + +--------+ + + + documented in this encounter Results US Guided Biopsy (01/25/2017 1:10 PM PDT) + + | Specimen | + + | | + + + + + | Narrative | Performed At | + + + | External films | [facility] | | for comparison only - no result from [place]. | | + + + + +---------+ + + | Performing | Address | City/State/Zipcode | Phone Number | | Organization | | | | + +---------+ + + | [facility] | | | | + +---------+ + + documented in this encounter Visit Diagnoses Not on filedocumented in this encounter"
--- OUTSIDE RECORDS SUMMARY | ~2020-05-08 | XMS | Encounter Summary ---
Demographics + + + | Address | [address] | | | [place] [address] | + + + | Home Phone | | + + + | Preferred Language | Unknown | + + + | Marital Status | Single | + + + | Zoroastrianism Affiliation | Unknown | + + + | Race | White | + + + | Ethnic Group | Not or | + + + Author + + + | Author | [facility] | | | and [place] | + + + | Organization | [facility] | | | and [...] Team Providers + +------+ + | Care Sliver Chopper Name | Role | Phone | + +------+ + | Pranav Auguste MD | PCP | | + +------+ + Reason for Visit + + + | Reason | Comments | + + + | Follow-up | 3 month follow up Prostate cancer | + + + Evaluate & Treat (Routine) +--------+--------+ + + + + | Status | Reason | Specialty | Diagnoses / | Referred By | Referred To | | | | | Procedures | Contact | Contact | +--------+--------+ + + + + | Closed | | Radiation | Diagnoses | [facility] | Shruti, | | | | Oncology | Malignant | Medical | Brynn Hopper MD | | | | | neoplasm of | Oncology | [address] | | | | | prostate | Clinic [address] | | | | | (HCC) | [address] | [place], | | | | | Prostate | [place], | [place] [address] | | | | | Cancer - | [place] | Phone: | | | | | Clinical T2c | [address] | [phone] | | | | | Joya 4+3 | Phone: | Fax: | | | | | carcinoma | [phone] | [phone] | | | | | Procedures | Fax: | | | | | | [place] OFFICE | [phone] | | | | | | OUTPATIENT | | | | | | | VISIT 25 | | | | | | | MINUTES | | | | | | | OFFICE VISIT | | | | | | | EXTENDED | | | +--------+--------+ + + + + Encounter Details +--------+ + + + + | Date | Type | Department | Care Team | Description | +--------+ + + + + | 12/12/ | Hospital | [facility] | Brynn Bahena | Prostate cancer | | 2018 | Encounter | MED CTR RADIATION | MD Ruchi [address] | ([facility]) | | | | ONCOLOGY CLINIC [address] | [place], [place] | | | | [facility] [address] | | | | | [place] [address] | | | | | | [phone] | | | +--------+ + + + [...] +---------+ + | No | | | . quit drinking in | | | | | 2006 | + + +---------+ + + + + | Sex Assigned at | Date Recorded | | | | + + + | Not on file | | + + + documented as of this encounter Last Filed Vital Signs + + + + + | Vital Sign | Reading | Time Taken | Comments | + + + + + | Blood Pressure | 128/69 | 12/12/2017 10:57 AM | | | | | PDT | | + + + + + | Pulse | 76 | 12/12/2017 10:57 AM | | | | | PDT | | + + + + + | Temperature | 35.9 C (96.6 F) | 12/12/2017 10:57 AM | | | | | PDT | | + + + + + | Respiratory Rate | 18 | 12/12/2017 10:57 AM | | | | | PDT | | + + + + + | Oxygen Saturation | 97% | 12/12/2017 10:57 AM | | | | | PDT | | + + + + + | Inhaled Oxygen | - | - | | | Concentration | | | | + + + + + | Weight | 87.3 kg (192 lb 7.4 | 12/12/2017 10:57 AM | | | | oz) | PDT | | + + + + + | Height | - | - | | + + + + + | Body Mass Index | 24.44 | 07/13/2017 8:39 AM | | | | | PDT | | + + + + + documented in this encounter Medications at Time of Discharge + + + +---------+ + + | Medication | Sig | Dispensed | Refills | Start | End Date | | | | | | Date | | + + + +---------+ + + | atorvaSTATin | Take 40 mg by mouth | | 0 | 03/10/20 | | | (LIPITOR) 40 mg | nightly. | | | 17 | | | tablet | | | | | | + + + +---------+ + + | fish oil 1,000 mg | Take 2,000 mg by | | 0 | | | | capsule | mouth nightly. | | | | | + + + +---------+ + + | Loratadine 10 MG | Take 10 mg by mouth | | 0 | | | | CAPS | Daily. | | | | | + + + +---------+ + + | Multiple Vitamin | Take 1 tablet by | | 0 | | | | (MULTI-VITAMIN PO) | mouth Daily. | | | | | + + + +---------+ + + | tiZANidine | Take 4 mg by mouth 2 | | 0 | 02/23/20 | | | (ZANAFLEX) 4 mg | times daily. | | | 17 | | | tablet | | | | | | + + + +---------+ + + | ALPRAZolam (XANAX) | Take 0.5 mg by mouth | | 0 | 02/26/20 | | | 2 MG tablet | 2 times daily. | | | 17 | 9 | + + + +---------+ + + | bicalutamide | Take 50 mg by mouth | | 0 | | | | (CASODEX) 50 mg | Daily. | | | | 8 | | tablet | | | | | | + + + +---------+ + + | clonazePAM | Take 1 mg by mouth | | 0 | 02/12/20 | | | (KLONOPIN) 1 mg | nightly. | | | 17 | 8 | | tablet | | | | | | + + + +---------+ + + | HYDROmorphone | Take 2 mg by mouth | | 0 | | | | (DILAUDID) 2 mg | every 4 hours as | | | | 8 | | tablet | needed for Pain. | | | | | + + + +---------+ + + | indomethacin | Take 75 mg by mouth | | 0 | | | | (INDOCIN SR) 75 mg | 2 times daily (with | | | | 8 | | CR capsule | breakfast & dinner). | | | | | + + + +---------+ + + | traMADol (ULTRAM) | Take 100 mg by mouth | | 0 | 02/12/20 | | | 50 mg tablet | 4 times daily. | | | 17 | 9 | + + + +---------+ + + | traZODone | Take 150 mg by mouth | | 0 | 02/22/20 | | | (DESYREL) 150 MG | nightly. Take 0.5 | | | 17 | 9 | | tablet | tab nightly | | | | | + + + +---------+ + + documented as of this encounter Progress Notes Brynn Willis MD - 12/12/2017 11:01 AM PDT Radiation Oncology Follow-up Chief Complaint/ICD10 ICD-10-CM ICD-9-CM 1. Prostate cancer (HCC) C61 185 History of Present Illness: Pablito Hollins is a 62 y.o. 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 Pathologic stage IIB, pT2c pN0, Joya 3+4=7, involving 20% of gland bilaterally, PNI pres ent, Positive apical margin bilaterally, extraprostatic extension indeterminate, negative fo r SV invasion. He has undergone prostatectomy and presents to discuss salvage radiation opti ons due to persistent PSA at 0.54. Pablito tolerated radiation treatment quite well. He reports that his energy has improved si nce completing treatment. Denies any lasting changes to urinary function. He does note jeff t glass month he was hospitalized at [facility] for a small bowel obstruction. This resolved without surgical intervention. Bowel function is normal at this time. Most recent PSA obtained at [facility] on 12/07/17 demonstrates a decreased at 0.286. He is not experiencing any new areas of focal bone pain. Chronic back pain and arthritis i s stable. He was previously taking bicalutamide however is no longer taking this due to breast tender ness. ROS REVIEW OF SYSTEMS Constitutional: Reports energy has been low. Reports having night sweats for a few months. Denies fatigue. Denies high fevers, shaking chills, anorexia, nausea, vomiting, weight loss. Appetite without changes. Ear, Nose, Mouth, Throat: Denies odynophagia, dysphagia, or tinnitus. Cardiovascular: Denies shortness of breath, dyspnea on exertion, chest pain, palpitations o r orthopnea. Respiratory: Denies cough, hemoptysis, or sputum production. Gastrointestinal: Denies abdominal pain, constipation, diarrhea, melena, or bright red bloo d per rectum. Genitourinary: Denies hematuria or dysuria. Musculoskeletal: Reports arthritis and chronic back pain. Neurologic: Denies headache, visual changes, or numbness/tingling of the extremities. Endocrine: Denies peripheral edema or heat/cold intolerance. Hematologic: Denies spontaneous bruising or bleeding. Integumentary: Denies rash, wounds or other skin concerns. Pain: Denies pain. Note: Here for 3 month follow up with Dr. Joshi for prostate cancer. Finished radiation treatment 09/14/17. Patient reports being hospitalized at [facility] for a blocked bowel about 1 month ago. My chart: Declined Pain assessment: Location: Denies Pain Pain Level: PAIN PROG PAIN LEVEL: 0 Current Outpatient Prescriptions Medication Sig Dispense Refill ALPRAZolam (XANAX) 2 MG tablet Take 1 mg by mouth 3 times daily. 0 atorvaSTATin (LIPITOR) 40 mg tablet Take 40 mg by mouth nightly. 0 clonazePAM (KLONOPIN) 1 mg tablet Take 1 mg by mouth nightly. 0 fish oil 1,000 mg capsule Take 2,000 mg by mouth nightly. HYDROmorphone (DILAUDID) 2 mg tablet Take 2 mg by mouth every 4 hours as needed for Cassie n. indomethacin (INDOCIN SR) 75 mg CR capsule Take 75 mg by mouth 2 times daily (with rocky kfast & dinner). Loratadine 10 MG CAPS Take 10 mg by mouth Daily. Multiple Vitamin (MULTI-VITAMIN PO) Take 1 tablet by mouth Daily. tiZANidine (ZANAFLEX) 4 mg tablet Take 4 mg by mouth 3 times daily. 0 traMADol (ULTRAM) 50 mg tablet Take 100 mg by mouth 4 times daily. 0 traZODone (DESYREL) 100 mg tablet Take 150 mg by mouth nightly. 0 No current facility-administered medications for this encounter. Allergies No active allergies Intolerance Allergen Reactions Codeine Nausea Only Vitals: 12/12/17 1057 BP: 128/69 Pulse: 76 Resp: 18 Temp: 35.9 C (96.6 F) Wt Readings from Last 3 Encounters: 12/12/17 87.3 kg (192 lb 7.4 oz) 09/13/17 90.4 kg (199 lb 4.7 oz) 09/06/17 91 kg (200 lb 9.9 oz) Physical Exam: General: Healthy appearing male in no acute medical distress. KPS: 90 HEENT: Pupils equal, round and reactive to light. No conjunctival icterus or injection. EOM I. Oral, moist mucus membranes. Lymphatic: No cervical, supraclavicular or axillary lymphadenopathy. Cardiovascular: Regular rate and rhythm, no murmur. Pulmonary: Breath sounds heard throughout, no adventitial sounds or increased work of breat maxime at rest. Abdomen: Soft, non-tender, no masses or organomegaly detected. Extremities: Upper and lower extremities warm and well perfused with no upper or lower extr emity edema. Neurologic: Alert, oriented and appropriated in conversation. CN II-IX grossly intact. Moves all 4 extremities normally with normal gait. Psychiatric: Appropriate. Labs: PSA: 12/07/17 0.286 postradiation 06/27/17 0.54 04/26/17 0.63 06/27/17 0.54 post prostatectomy 01/11/17 4.23 09/19/16 4.25 Imaging: No recent results. Assessment: ICD-10-CM ICD-9-CM 1. Prostate cancer (HCC) C61 185 Pablito Hollins is a 62 y.o. 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 Pathologic stage IIB, pT2c pN0, [place] 3+4=7, involving 20% of gland bilaterally, PNI pres ent, Positive apical margin bilaterally, extraprostatic extension indeterminate, negative fo r SV invasion. He has undergone prostatectomy and presents to discuss salvage radiation opti ons due to persistent PSA at 0.54. (noADT) Pablito is doing well this time. Does not demonstrate any significant lasting side effects o f radiation treatment. He is satisfied with urinary control. Denies urinary frequency urge ncy or dysuria that is bothersome. He did experience a small bowel obstruction which may be related to prior surgical intervention area it is early for this to be related to radiation treatment, however radiation has been associated with small bowel obstruction. Agree with prior conservative management. Encouragement provided the PSA is trending downward. We will continue to monitor PSA every 3 months. He was asked to follow up in my clinic in 3-4 months. He will also continue to follow with Dr. Martin as directed, we may transition to alternating visits. Thank you for allowing me to participate in the care of Pablito Hollins. If you should have any questions regarding this evaluation, please do not hesitate to contact me. Brynn To M.D. Radiation Oncologist Department of Radiation Oncology [facility] Office: [phone] CC: Patient Care Team: Pranav Auguste MD as PCP - General (Family Medicine) Brynn Willis MD as Physician (Radiation Oncology) Kevin Martni MD as Physician (Urology) Naveed Leonard MD (Specialist/Technologist,Other - Behavioral Health Clinician) documented in this encounter Plan of Treatment +--------+ + + + + | Date | Type | Specialty | Care Team | Description | +--------+ + + + + | 02/02/ | Appointment | Radiation Oncology | Brynn Bahena | | | 2020 | | | MD [address] | | | | | | [place], [place] | | | | | | [address] | | | | | | | | +--------+ + + + + documented as of this encounter Procedures + +--------+ + + + | Procedure Name | Priori | Date/Time | Associated Diagnosis | Comments | | | ty | | | | + +--------+ + + + | LABS - EXTERNAL SCAN | | 12/07/2017 | | Results for this | | | | 12:00 AM | | procedure are in the | | | | PDT | | results section. | + +--------+ + + + documented in this encounter Results LABS - EXTERNAL SCAN (12/07/2017 12:00 AM PDT) + + + | Narrative | Performed At | + + + | Ordered by an | | | unspecified provider. | | + + + documented in this encounter Visit Diagnoses + + | Diagnosis | + + | Prostate cancer (HCC) Malignant neoplasm of prostate | + + documented in this encounter"
--- OUTSIDE RECORDS SUMMARY | ~2020-05-08 | XMS | Encounter Summary ---
Demographics + + + | Address | [address] | | | [place] [address] | + + + | Home Phone | | + + + | Preferred Language | Unknown | + + + | Marital Status | Single | + + + | Voodoo Affiliation | Unknown | + + + | Race | White | + + + | Ethnic Group | Not or | + + + Author + + + | Author | [facility] | | | and [place] | + + + | Organization | [facility] | | | [...] Team Providers + +------+ + | Care Acid Maker Name | Role | Phone | + +------+ + | Pranav Auguste MD | PCP | | + +------+ + Reason for Visit + +--------+ + | Reason | Onset | Comments | | | Date | | + +--------+ + | Insurance | 07/18/ | | | Authorization | 2018 | | + +--------+ + Encounter Details +--------+ + + + + | Date | Type | Department | Care Team | Description | +--------+ + + + + | 07/18/ | Telephone | [facility] | Chencho Barrera MD | Insurance | | 2018 | | GASTROENTEROLOGY | [address] [facility] | Authorization | | | | [address] [facility] | [place], [place] | | | | | [address] [place], [place] | [address] | | | | | [address] | [phone] | | | | | [phone] | | | +--------+ + + + [...] + + documented as of this encounter Miscellaneous Notes Telephone Encounter - Brittany Rapp RN - 07/18/2018 1:03 PM PDTPer patient he now has Ruchi bui and was transferred to the front office to update all insurance information; auth sp ecialist informed. el ephone Encounter - Brittany Rapp RN - 07/18/2018 1:02 PM PDT----- Message from Ingrid Lima sent at 07/18/2018 10:31 PDT ----- Regarding: SUMA/INSURANCE TERMED PER [employer] WEBS[employer] THIS PATIENT'S INSURANCE WITH THEM TERMED 06/16/18. SCHED 07/31/18 PLEASE CONTACT PATIENT REGARDING THIS TO ASK IF HE HAS OTHER INS OR WILL BE SELF PAY. THANK S/CS documented in this en counter Plan of Treatment +--------+ + + + + | Date | Type | Specialty | Care Team | Description | +--------+ + + + + | 02/02/ | Appointment | Radiation Oncology | Brynn Bahena | | | 2020 | | | MD [address] | | | | | | [place], [place] | | | | | | [id number] | | | | | | | | +--------+ + + + + documented as of this encounter Visit Diagnoses Not on filedocumented in this encounter"
--- OUTSIDE RECORDS SUMMARY | ~2020-05-08 | XMS | Encounter Summary ---
Demographics + + + | Address | [address] | | | [place] [address] | + + + | Home Phone | | + + + | Preferred Language | Unknown | + + + | Marital Status | Single | + + + | Oriental Orthodox Affiliation | Unknown | + + + | Race | White | + + + | Ethnic Group | Not or | + + + Author + + + | Author | [facility] | | | and [place] | + + + | Organization | [facility] | | | [...] Team Providers + +------+ + | Care Table Games Manager Name | Role | Phone | + +------+ + | Darlin Jain MD | PCP | | + +------+ + Encounter Details +--------+ + + + + | Date | Type | Department | Care Team | Description | +--------+ + + + + | 02/01/ | Orders Only | [facility] | Brynn Bahena | Prostate Cancer - | | 2019 | | MED CTR RADIATION | M, MD [address] | Clinical [facility] [place] | | | | ONCOLOGY CLINIC [address] [place] | 4+3 carcinoma | | | | [address] | [id number] | (Primary Dx) | | | | [place] [address] | | | | | | [phone] | | | +--------+ + + + [...] | | | + +---+---+---+ + + +---------+ + | Alcohol Use [...] | | | MD Marcelo [address] | | | | | | [place] | | | | | | [address] | | | | | | | | +--------+ + + + + + +------+--------+ + + | Name | Type | Priori | Associated Diagnoses | Order Schedule | | | | ty | | | + +------+--------+ + + | PSA, Diagnostic | Lab | Routin | Prostate Cancer - | 6months for 2 | | | | e | Clinical [facility] [place]a | Occurrences starting | | | | | 4+3 carcinoma | 02/02/2020 until | | | | | | 02/01/2021 | + +------+--------+ + + documented as of this encounter Visit Diagnoses + + | Diagnosis | + + | Prostate Cancer - Clinical T2c [place] 4+3 carcinoma - Primary Malignant neoplasm of | | prostate | + + documented in this encounter"
--- OUTSIDE RECORDS SUMMARY | ~2020-05-08 | XMS | Encounter Summary ---
Demographics + + + | Address | [address] | | | [place] [address] | + + + | Home Phone | | + + + | Preferred Language | Unknown | + + + | Marital Status | Single | + + + | Yazidi Affiliation | Unknown | + + + [...] Team Providers + +------+ + | Care System Archive Analyst Name | Role | Phone | + +------+ + | Pranav Auguste MD | PCP | | + +------+ + Encounter Details +--------+ + + + + | Date | Type | Department | Care Team | Description | +--------+ + + + + | 07/23/ | Hospital | [facility] | Brynn Bahena | | | 2017 | Encounter | MED CTR RADIATION | MD Ruchi [address] | | | | | ONCOLOGY [address] [place], [place] | | | | | [place], | [address] | | | | | [place] [address] | | | | | | [phone] | | | +--------+ + + + [...] + + documented as of this encounter Medications at Time of Discharge [...] + + + +---------+ + + | | take 1 tablet by | | 0 | 02/07/20 | | | oxyCODONE-acetaminop | mouth four times a | | | 17 | 7 | | hen (PERCOCET) 5-325 | day MAY FILL | | | | | | mg per tablet | 02-06-17 | | | | | + + [...] [place] | | | | | | [id number] | | | | | | | | +--------+ + + + + documented as of this encounter Visit Diagnoses Not on filedocumented in this encounter"
--- OUTSIDE RECORDS SUMMARY | ~2020-05-08 | XMS | Encounter Summary ---
Demographics + + + | Address | [address] | | | [place] [address] | + + + | Home Phone | | + + + | Preferred Language | Unknown | + + + | Marital Status | Single | + + + | Episcopalian Affiliation | Unknown | + + + | Race | White | + + + | Ethnic Group | Not or | + + + Author + + + | Author | [facility] | | | and [place] | + + + | Organization | [facility] | | [...] Team Providers + +------+ + | Care Cross Tie Cutter Name | Role | Phone | + +------+ + | Pranav Auguste MD | PCP | | + +------+ + Reason for Visit +--------+--------+ + | Reason | Onset | Comments | | | Date | | +--------+--------+ + | Other | 09/08/ | | | | 2019 | | +--------+--------+ + Encounter Details +--------+ + + + + | Date | Type | Department | Care Team | Description | +--------+ + + + + | 09/08/ | Telephone | [facility] | Brynn Bahena | Other | | 2019 | | MED CTR MEDICAL | MD Ruchi [address] | | | | | ONCOLOGY CLINIC [address] [place], [place] | | | | | [address] [place] | [address] | | | | | [place] [address] | | | | | | [phone] | | | +--------+ + + + [...] this encounter Miscellaneous Notes Telephone Encounter - Maria Victoria Catherine RN - 09/08/2019 2:35 PM PSTOrder faxed to [facility] as requested, patient notified. elephone Encounter - Jerri Reilly - 09/08/2019 11:51 AM PSTPlease send an order to [facility] in [place] so he can have his labs drawn prior to seeing Dr. Zaira Fraire. documented in thi s encounter Plan of Treatment +--------+ + + + + | Date | Type | Specialty | Care Team | Description | +--------+ + + + + | 02/02/ | Appointment | Radiation Oncology | Brynn Bahena | | | 2020 | | | MD [address] | | | | | | [place], [place] | | | | | | [address] | | | | | | | | +--------+ + + + + documented as of this encounter Visit Diagnoses Not on filedocumented in this encounter"
--- OUTSIDE RECORDS SUMMARY | ~2020-05-08 | XMS | Encounter Summary ---
Demographics + + + | Address | [address] | | | [place] [address] | + + + | Home Phone | | + + + | Preferred Language | Unknown | + + + | Marital Status | Single | + + + | Gnosticist Affiliation | Unknown | + + + | Race | White | + + + | Ethnic Group | Not or | + + + Author + + + | Author | [facility] | | | and [place] | + + + | Organization | [facility] | | | [...] Team Providers + +------+ + | Care Extrusion Die Coordinator Name | Role | Phone | + +------+ + | Pranav Auguste MD | PCP | | + +------+ + Encounter Details +--------+ + + + + | Date | Type | Department | Care Team | Description | +--------+ + + + + | 07/31/ | Hospital | [facility] | Chencho Barrera MD | History of colonic | | 2018 | Encounter | [facility] | [address] | polyps | | | | [address] | [place], [place] | | | | | [place] | [address] | | | | | [address] | [phone] | | | | | [phone] | | | +--------+ + + + + Social History + + + +--------+------+ | Tobacco Use | Types | Packs/Day | Years | Date | | | | | Used | | + + + +--------+------+ | Current Every Day | Cigarettes | 0.25 | 49 | | | Smoker | [...] + + + | Blood Pressure | 118/66 | 07/31/2018 12:15 PM | | | | | PST | | + + + + + | Pulse | 73 | 07/31/2018 12:15 PM | | | | | PST | | + + + + + | Temperature | 36.9 C (98.4 F) | 07/31/2018 11:54 AM | | | | | PST | | + + + + + | Respiratory Rate | 12 | 07/31/2018 11:54 AM | | | | | PST | | + + + + + | Oxygen Saturation | 98% | 07/31/2018 12:15 PM | | | | | PST | | + + + + + | Inhaled Oxygen | - | - | | | Concentration | | | | + + + + + | Weight | 87.3 kg (192 lb 7.4 | 07/31/2018 10:42 AM | | | | oz) | PST | | + + + + + | Height | 185.4 cm (6' 1") | 07/31/2018 10:42 AM | | | | | PST | | + + + + + | Body Mass Index | 25.39 | 07/31/2018 10:42 AM | | | | | PST | | + + + + + documented in this encounter Discharge Instructions Darlyn Ellsworth RN - 07/31/2018 Recovery After Procedural Sedation (Adult) You have been given medicine by vein to make you sleep during your procedure. This may have included both a pain medicine and sleeping medicine. Most of the effects have worn off. But you may still have some drowsiness for the next 6 to 8 hours. Home care Follow these guidelines when you get home: For the next 8 hours, you should be watched by a responsible adult. This person should m ricardo sure your condition is not getting worse. Don't drink any alcoholfor the next [address], operate dangerous machinery,make important business or personal decisions , or sign legal documentsduring the next 24 hours. Note: Your healthcare provider may tell you not to take any medicine by mouth for pain or s leep in the next 4 hours. These medicines may react with the medicines you were given in the hospital. This could cause a much stronger response than usual. Follow-up care Follow up with your healthcare provider if you are not alert and back to your usual level o f activity within 12 hours. When to seek medical advice Call your healthcare provider right away if any of these occur: Drowsiness gets worse Weakness or dizziness gets worse Repeated vomiting You can't be awakened Date Last Reviewed: 07/04/201619998514-2960 [employer]. [address] [place] [address]. All righ ts reserved. This information is not intended as a substitute for professional medical care. Always follow your healthcare professional's instructions. documented in this encounter Medications at Time [...] + + + +---------+ + + | hydrOXYzine | Take 25 mg by mouth | | 0 | 03/11/20 | | | hydrochloride | every 6 hours as | | | 18 | | | (ATARAX) 25 mg | needed. | | | | | | tablet | | [...] + + + +---------+ + + | polyethylene | Take 17 g by mouth | | 0 | | | | glycol (MIRALAX) | nightly as needed. | | | | | | powder | | | | | | + [...] + + + +---------+ + + | DULoxetine | Take 60 mg by mouth | | 0 | | | | (CYMBALTA) [address] | Daily. | | | | 9 | | capsule | | | | | | + + + +---------+ + + | | Take 1 tablet by | | 0 | | | | oxyCODONE-acetaminop | mouth every 4 hours | | | | 9 | | hen (PERCOCET) 5-325 | as needed for Pain. | | | | | | mg per tablet | | | | | | + + + +---------+ + + | rOPINIRole | Take 1 mg by mouth | | 0 | | | | (REQUIP) 1 mg tablet | nightly. Three | | | | 9 | | | tablets nightly | | | | | + [...] + + documented as of this encounter H&P Notes Chencho Barrera MD - 07/31/2018 12:07 PM PSTPatient interviewed, history and physical, symp toms reviewed VS signs noted, no change from previous H&P or assessment and plan.Electronic ally signed by Chencho Barrera MD at 07/31/2018 12:07 PM Chencho Davis MD - 07/31/2018 1 2:06 PM PST PRE-ENDOSCOPY HISTORY AND PRE-SEDATION ASSESSMENT PATIENT NAME: Pablito Hollins : 1955 TODAY'S DATE: 07/31/2018 PLANNED PROCEDURE: colonoscopy PERTINENT HISTORY/INDICATION FOR PROCEDURE: Pablito Hollins is a 63 y.o. male who is undergoing endoscopy for abdominal pain. PAST HISTORY: Past Medical History: Diagnosis Date Chronic back pain Depression with anxiety Erectile dysfunction Full dentures Heart murmur Hyperlipidemia Lumbar disc disease Microhematuria Nodular prostate with urinary obstruction Prostate cancer (HCC) Restless leg syndrome Slowing of urinary stream PAST SURGICAL HISTORY Past Surgical History: Procedure Laterality Date BIOPSY 01/25/2017 Procedure: US GUIDED BIOPSY - Location: [facility] EXTERNAL IMAGING COLONOSCOPY LYMPHADENECTOMY PRE-MALIGNANT / BENIGN SKIN LESION EXCISION Left Left groin PROSTATECTOMY N/A 03/30/2017 Procedure: Radical Prostatectomy; Surgeon: Kevin Martin MD; Location: [facility] MAIN OR HOME MEDS: Scheduled Meds: albuterol-ipratropium 3 mL Nebulization Once Continuous Infusions: lactated ringers lactated ringers sodium chloride 0.9% PRN Meds:.albuterol-ipratropium, dextrose, dextrose, ondansetron ALLERGIES Allergies Allergen Reactions Codeine Nausea Only ASA CLASSIFICATION: Class 3 - A patient with severe systemic disease that limits activity b ut is not incapacitating EXAMINATION: BP 108/59 | Pulse 74 | Temp 36.9 C (98.4 F) (Temporal) | Resp 12 | Ht 1.854 m (6' 1 ") | Wt 87.3 kg (192 lb 7.4 oz) | SpO2 95% | BMI 25.39 kg/m General: Alert and oriented Throat: Normal Lungs: Clear Heart: Regular rate and rhythm with out significant murmur Abdomen: flat, normal bowel sounds. Soft, nontender 1. Available medical records have been reviewed. 2. Medication list reviewed. IMPRESSION: . Patient appropriate for procedure. PLAN: 1. Proceed with procedure as stated above with moderate sedation/analgesia 2. Procedure, indications, risks and alternatives explained to patient/family and they agre ed to proceed and consent was signed. 3. Patient will be reevaluated immediately (1-2 minutes) before sedation administration and approved for the plan as stated above. Electronically Signed by: Chencho Barrera MD 07/31/2018 [facility] Portions of this chart may have been created with [employer] voice recognition software. Occasi onal wrong-word or sound-alike substitutions may have occurred due to the inherent araujo itations of voice recognition software. Please read the chart carefully and recognize, using context, where these substitutions have occurred documented in this encounter Miscellaneous Notes D-C Instructions Provation - Chencho Barrera MD - 07/31/2018 11:11 AM [place] Instruct ions for Colonoscopy Exams Patient: Pablito Hollins : 1955 Acct: [id number] Exam Date: Tuesday, July 31, 2018 Doctor: Chencho Barrera MD You have had an examination of the gastrointestinal tract. The chances of difficulty following this procedure are minimal. The following instructions will assist you in your recovery. ACTIVITIES: Rest quietly until sedation wears off. DO NOT drive a motor vehicle or operate machinery for 24 hours after sedation. Be cautious making critical decisions for 24 hours after sedation. DIET: If throat has been sprayed, do not eat or drink for 1 hour after. Start with a swallow of tap water, if you experience any lack of sensation in your throat, wait another 30 - 60 minutes and start with water again. Once swallowing has returned to normal you may resume your usual diet unless otherwise instructed by your physician. DISCOMFORT: If you had a bowel exam, you may have some abdominal discomfort from the air put into your bowel during the exam. Moving about will help you pass this air. Sometimes the medications given to you during the exam can aggravate the veins. The chemical irritation can cause inflammation or pain along the arm with redness, swelling and warmth. This does not mean there is an infection. You can treat the affected area by applying warm,wet compresses (towels) 4 times a day for 20 minutes at a time until inflammation is resolved. REPORT TO YOUR DOCTOR: Unusual abdominal pain Chest pain or unusual shortness of breath Shoulder pain Nausea, vomiting Fever over 100 degrees, chills Signs of rectal bleeding (red or black stools) Any concern you have resulting from procedure You may reach your physician at Work: . If unable to reach your physician, call [facility] Emergency Department at Ext. [phone] Your doctor recommends these additional instructions: You have a contact number available for emergencies. The signs and symptoms of potential delayed complications were discussed with you. You may return to normal activities tomorrow. Written discharge instructions were provided to you. Eat a high fiber diet. Continue your present medications. We are waiting for your pathology results. Your physician has recommended a repeat colonoscopy in three to five years for surveillance based on pathology results. Return to your GI office as needed. Do not take any aspirin, ibuprofen (including Advil, Motrin or Nuprin), naproxen (including Aleve), or any other non-steroidal anti-inflammatory drugs for 3 weeks. The findings and recommendations have been discussed with you. These instructions have been explained to the patient and/or escort. A copy has been given to the patient/escort. Nurse Signature Patient Signature Escort Signature Date Chencho Barrera MD 07/31/2018 11:54:28 AM This report has been signed electronically.Electronically signed by Chencho Barrera MD at 11:54 AM PSTdocumented in this encounter Plan of Treatment +--------+ + + + + | Date | Type | Specialty | Care Team | Description | +--------+ + + + + | 02/02/ | Appointment | Radiation Oncology | Brynn Bahena | | | 2020 | | | MD Ruchi [address] | | | | | | [place] | | | | | | [address] | | | | | | | | +--------+ + + + + documented as of this encounter Procedures + +--------+ + + + | Procedure Name | Priori | Date/Time | Associated Diagnosis | Comments | | | ty | | | | + +--------+ + + + | COLONOSCOPY | | 07/31/2018 | Chronic abdominal | | | | | 11:15 AM | pain (R10.9, | | | | | PST | G89.29), History of | | | | | | colonic polyps | | | | | | (Z86.010), | | | | | | Constipation, | | | | | | unspecified | | | | | | constipation type | | | | | | (K59.00), History of | | | | | | small bowel | | | | | | obstruction | | | | | | (Z87.19), History of | | | | | | prostate cancer | | | | | | (Z85.46), Narcotic | | | | | | dependence (HCC) | | | | | | (F11.20) | | + +--------+ + + + | COLONOSCOPY | Routin | 07/31/2018 | | Results for this | | | e | 11:11 AM | | procedure are in the | | | | PST | | results section. | + +--------+ + + + | SURGICAL PATHOLOGY | Routin | 07/31/2018 | | Results for this | | EXAM | e | 12:00 AM | | procedure are in the | | | | PST | | results section. | + +--------+ + + + documented in this encounter Results COLONOSCOPY (07/31/2018 11:11 AM PST) + + | Specimen | + + | | + + + + ----+ | Narrative | Performed At | + + ----+ | | [facility] | | GastroenterologyPatient Name: Pablito KoyProcedure Date: 07/31/2018 | [facility] | | 11:11 AMMRN: [id number] #: [id number] of : | | | 3Admit Type: AmbulatoryAge: 63Room: [facility]Gender: MaleNote | | | Status: FinalizedAttending MD: Chencho Barrera , MDProcedure: | | | ColonoscopyIndications: Abdominal painProviders: | | | Chencho Barrera MD, Ibrahima Lujan RN, [facility] | | | Adonis, Junior Linux Systems Administrator, Willie Newman MD (Anesthesia | | | Staff)Referring MD: Waldemar Auguste MD (Referring | | | MD)Medicines: Monitored Anesthesia CareComplications: | | | No immediate complications.Procedure: Pre-Anesthesia | | | Assessment: - Prior to the procedure, a History and Physical was | | | performed, and patient medications and allergies were | | | reviewed. The patient is competent. The risks and benefits of | | | the procedure and the sedation options and risks were discussed | | | with the patient. All questions were answered and informed | | | consent was obtained. Patient identification and proposed | | | procedure were verified by the physician, the nurse, the | | | anesthesiologist and the arch support technician in the pre-procedure area in the | | | procedure room. Mental Status Examination: alert and oriented. | | | Airway Examination: normal oropharyngeal airway and neck | | | mobility. Respiratory Examination: clear to auscultation. CV | | | Examination: normal. Prophylactic Antibiotics: The patient does | | | not require prophylactic antibiotics. Prior Anticoagulants: | | | The patient has taken no previous anticoagulant or antiplatelet | | | agents. ASA Grade Assessment: III - A patient with severe | | | systemic disease. After reviewing the risks and benefits, the patient | | | was deemed in satisfactory condition to undergo the procedure. | | | The anesthesia plan was to use monitored anesthesia care (MAC). | | | Immediately prior to administration of medications, the | | | patient was re-assessed for adequacy to receive sedatives. The | | | heart rate, respiratory rate, oxygen saturations, blood | | | pressure, adequacy of pulmonary ventilation, and response to | | | care were monitored throughout the procedure. The physical | | | status of the patient was re-assessed after the procedure. After | | | I obtained informed consent, the scope was passed under direct | | | vision. Throughout the procedure, the patient's blood pressure, | | | pulse, and oxygen saturations were monitored continuously. The | | | Colonoscope was introduced through the anus and advanced to 5 | | | cm into the ileum. The colonoscopy was performed without | | | difficulty. The patient tolerated the procedure well. The | | | quality of the bowel preparation was adequate to identify | | | polyps 6 mm and larger in size.Findings: The perianal and | | | digital rectal examinations were normal. Two sessile polyps were | | | found in the sigmoid colon and hepatic flexure. The polyps | | | were 3 to 5 mm in size. These polyps were removed with a hot | | | snare. Resection and retrieval were complete. Verification of patient | | | identification for the specimen was done by the physician and | | | nurse using the patient's name and date. Estimated blood | | | loss was minimal. To prevent bleeding after the polypectomy, | | | one hemostatic clip was successfully placed (MR conditional). | | | There was no bleeding at the end of the procedure. A 3 mm | | | polyp was found in the sigmoid colon. The polyp was sessile. The | | | polyp was removed with a cold biopsy forceps. Resection and | | | retrieval were complete. Verification of patient identification | | | for the specimen was done by the physician and nurse using the | | | patient's name and date. Estimated blood loss was | | | minimal. Multiple small-mouthed diverticula were found in the | | | sigmoid colon. The exam was otherwise normal throughout the | | | examined colon. The terminal ileum appeared normal. The | | | retroflexed view of the distal rectum and anal verge was normal and | | | showed no anal or rectal abnormalities.Impression: - Two 3 | | | to 5 mm polyps in the sigmoid colon and at the hepatic flexure, | | | removed with a hot snare. Resected and retrieved. Clip (MR | | | conditional) was placed. - One 3 mm polyp in the sigmoid | | | colon, removed with a cold biopsy forceps. Resected and | | | retrieved. - Diverticulosis in the sigmoid colon. - The | | | examined portion of the ileum was normal. - The distal rectum | | | and anal verge are normal on retroflexion view.Recommendation: - | | | Patient has a contact number available for emergencies. The signs and | | | symptoms of potential delayed complications were discussed | | | with the patient. Return to normal activities tomorrow. Written | | | discharge instructions were provided to the patient. - | | | High fiber diet. - Continue present medications. - Await | | | pathology results. - Repeat colonoscopy in 3 - 5 years for | | | surveillance based on pathology results. - Return to GI | | | office PRN. - No aspirin, ibuprofen, naproxen, or other | | | non-steroidal anti-inflammatory drugs for 3 weeks. - The | | | findings and recommendations were discussed with the patient.Chencho | | | Ryann Barrera MD07/31/2018 11:54:28 AMThis report has been signed | | | electronically.Number of Addenda: 0Note Initiated On: 07/31/2018 11:11 | | | AMScope Withdrawal Time: 0 hours 21 minutes 23 seconds Total | | | Procedure Duration: 0 hours 28 minutes 33 seconds Scope In: 11:20:23 | | | AMScope Out: 11:48:56 AM [facility], [address] | [place] [address] | | | - Await pathology results. | | | - Repeat colonoscopy in 3 - 5 years for surveillance based on pathology | | | results. | | | - Return to GI office PRN. | | | - No aspirin, ibuprofen, naproxen, or other non-steroidal | | | anti-inflammatory drugs for 3 weeks. | | | - The findings and recommendations were discussed with the patient. | | |Chencho Barrera MD | | |07/31/2018 11:54:28 AM | | |This report has been signed electronically. | | |Number of Addenda: 0 | | |Note Initiated On: 07/31/2018 11:11 AM | | |Scope Withdrawal Time: 0 hours 21 minutes 23 seconds | | |Total Procedure Duration: 0 hours 28 minutes 33 seconds | | |Scope In: 11:20:23 AM | | |Scope Out: 11:48:56 AM | | | [facility], [facility] [address] [place], [place] | | | [address] | | + + ----+ + +---------+ + + | Performing | Address | City/State/Zipcode | Phone Number | | Organization | | | | + +---------+ + + | [facility] | | | | + +---------+ + + Surgical Pathology Exam (07/31/2018 12:00 AM PST) + + | Specimen | + + | | + + + + + | Narrative | Performed At | + + + | SPECIMEN(S): A HEPATIC FLEXURE POLYP SPECIMEN(S): B SIGMOID POLYPS | [facility] | | SPECIMEN SOURCE: A. HEPATIC FLEXURE POLYP B. SIGMOID POLYPS | [facility] | | CLINICAL HISTORY: R10.9 (unspecified abdominal pain) G89.29 (other | | | chronic pain) Z86.010 (personal history of colonic polyps) K59.00 | | | (constipation, unspecified) Z87.19 (personal history of other diseases | | | of the digestive system) Z85.46 (personal history of malignant | | | neoplasm of prostate) F11.20 (opioid dependence, uncomplicated) | | | MICROSCOPIC DESCRIPTION: Histologic sections of all submitted blocks | | | are examined by light microscopy. These findings, together with the | | | gross examination, support the pathologic diagnosis. FINAL | | | PATHOLOGIC DIAGNOSIS: A. Hepatic flexure polyp, biopsy: - Tubular | | | adenoma (three fragments). B. Sigmoid polyps, biopsy: - | | | Hyperplastic polyp (one fragment). JVR:[facility]:C2NR GROSS | | | DESCRIPTION: Two containers are received. A. The specimen is | | | received in formalin labeled "hepatic flexure polyp" and consists of | | | three, 0.3 to 0.6 cm brandon fragments, entirely submitted in (A1). B. | | | The specimen is received in formalin labeled "sigmoid polyps" and | | | consists of three, 0.2 to 0.4 cm brandon fragments, entirely submitted in | | | (B1). am:AMB:cml PERFORMING LABORATORY: The technical component | | | was performed by [facility], [address] [place] [address] | | | [id number] (Ice Cream Chef: Rocio Noguera MD; CLIA# [id number]). | | | Professional interpretation was performed by [facility], | | | [facility], [facility], | | | [place] [address] (Ice Cream Chef: Fred Warner M.D.). | | | Diagnostician: Fred Warner MD Pathologist Electronically | | | Signed 08/01/2018 | | + + + + +---------+ + + | Performing | Address | City/State/Zipcode | Phone Number | | Organization | | | | + +---------+ + + | [facility] | | | | | [facility] | | | | + +---------+ + + documented in this encounter Visit Diagnoses + + | Diagnosis | + + | History of colonic polyps Personal history of colonic polyps | + + documented in this encounter Administered Medications + +--------+---------+------+------+------+ | Medication Order | MAR | Action | Dose | Rate | Site | | | Action | Date | | | | + +--------+---------+------+------+------+ + +---+ | albuterol-ipratropium 2.5-0.5 | | | mg/3 mL nebulizer solution 3 mL | | | 3 mL, Nebulization, ONCE PRN, | | | Wheezing, Shortness of Breath, | | | Starting 07/31/18 at 1203, | | | For 1 dose, Recovery/Phase I | | + +---+ | | | + +---+ | dextrose 50% injection 12.5-25 | | | g 12.5-25 g, Intravenous, EVERY | | | 15 MIN PRN, Low Blood Sugar, Give | | | 12.5g (25 mL) IV if blood | | | glucose 50-69 mg/dL. Give 25g | | | (50 mL) IV if blood glucose < 50, | | | Starting 07/31/18 at 1047, | | | Repeat in 15 min if blood glucose | | | remains < 70 mg/dL. Repeat | | | blood glucose in 30 min once | | | blood glucose > 70., Pre-op | | + +---+ | | | + +---+ | dextrose 50% injection 12.5-25 | | | g 12.5-25 g, Intravenous, EVERY | | | 15 MIN PRN, Low Blood Sugar, For | | | hypoglycemia. Give 12.5g (25ml) | | | IV if blood glucose 50-69 | | | mg/dL. Give 25g (50ml) IV if | | | blood glucose < 50, Starting Wed | | | 07/31/18 at 1203, Give over 2 | | | min. Repeat in 15 min if blood | | | glucose remains < 70 mg/dL. | | | Repeat blood glucose in 30 min | | | once blood glucose > 70., | | | Recovery/Phase I | | + +---+ | | | + +---+ + +---------+ +---+---+---+ | lactated ringers (LR) infusion | New Bag | 07/31/20 | | | | | at 100 mL/hr, Intravenous, | | 18 10:22 | | | | | CONTINUOUS, Starting 07/31/18 | | AM PST | | | | | at 1115, Pre-op | | | | | | + +---------+ +---+---+---+ + +---+ | | | + +---+ | lactated ringers (LR) infusion | | | at 10-100 mL/hr, Intravenous, | | | CONTINUOUS, Starting 07/31/18 | | | at 1115, TKO. Use unless patient | | | is on dialysis., Pre-op | | + +---+ | | | + +---+ | ondansetron (ZOFRAN) injection | | | 4 mg 4 mg, Intravenous, ONCE | | | PRN, Nausea, Starting Wed | | | 07/31/18 at 1203, For 1 dose, | | | Post-op/Phase II | | + +---+ | | | + +---+ | sodium chloride 0.9% (NS) | | | infusion at 10-100 mL/hr, | | | Intravenous, CONTINUOUS, Starting | | | 07/31/18 at 1115, TKO. Use | | | this instead of LR if patient is | | | on dialysis., Pre-op | | + +---+ | | | + +---+ documented in this encounter
--- OUTSIDE RECORDS SUMMARY | ~2020-05-08 | XMS | Encounter Summary ---
Demographics + + + | Address | [address] | | | [place] [address] | + + + | Home Phone [...] Author + + + | Author | [facility] | | | and [place] | + + + | Organization | [facility] | | | [...] Team Providers + +------+ + | Care Auto Electrical Technician Name | Role | Phone | + +------+ + | Pranav Auguste MD | PCP | | + +------+ + Reason for Visit + + + | Reason | Comments | + + + | Under Treatment | | + + + | Prostate Cancer | | + + + Encounter Details +--------+ + + + + | Date | Type | Department | Care Team | Description | +--------+ + + + + | 09/13/ | Hospital | [facility] | Shruti Brynn | Prostate Cancer - | | 2017 | Encounter | [facility] | MD Ruchi [address] | Clinical T[facility] [place] | | | | [facility] [address] | [place], [place] | 4+3 carcinoma | | | | [facility] | [phone] | (Primary Dx) | | | | [place] [address] | | | | | | [phone] | | | +--------+ + + + [...] + + + | Blood Pressure | 134/63 | 09/13/2017 2:21 PM | | | | | PST | | + + + + + | Pulse | 75 | 09/13/2017 2:21 PM | | | | | PST | | + + + + + | Temperature | 36.7 C (98.1 F) | 09/13/2017 2:21 PM | | | | | PST | | + + + + + | Respiratory Rate | 16 | 09/13/2017 2:21 PM | | | | | PST | | + + + + + | Oxygen Saturation | 97% | 09/13/2017 2:21 PM | | | | | PST | | + + + + + | Inhaled Oxygen | - | - | | | Concentration | | | | + + + + + | Weight | 90.4 kg (199 lb 4.7 | 09/13/2017 2:21 PM | | | | oz) | PST | | + + + + + | Height | - | - | | + + + + + | Body Mass Index | 25.31 | 07/13/2017 8:39 AM | | | [...] encounter Progress Notes Brynn Willis MD - 09/13/2017 2:23 PM PST Radiation Oncology Weekly On Treatment Note Diagnosis: ICD-10-CM ICD-9-CM 1. Prostate Cancer - Clinical T2c [place] 4+3 carcinoma C61 [id number] Reason for visit: On treatment evaluation Radiation technical factors: Dose Delivered Dose Planned Fractions Delivered 6600 cGy 6800 cGy 33/34 Images were reviewed this week and results of the review have been recorded in [facility]. Corre ctions were applied as necessary. Allergies Allergen Reactions Codeine Nausea Only Current Outpatient Prescriptions on File Prior to Encounter Medication Sig Dispense Refill ALPRAZolam (XANAX) 2 MG tablet Take 1 mg by mouth 3 times daily. 0 atorvaSTATin (LIPITOR) 40 mg tablet Take 40 mg by mouth nightly. 0 bicalutamide (CASODEX) 50 mg tablet Take 50 mg by mouth Daily. clonazePAM (KLONOPIN) 1 mg tablet Take 1 [...] mouth nightly. 0 No current facility-administered medications on file prior to encounter. Pain assessment: Location: 0 Pain Level: {0 Wt Readings from Last 3 Encounters: 09/13/17 90.4 kg (199 lb 4.7 oz) 09/06/17 91 kg (200 lb 9.9 oz) 08/30/17 90.3 kg (199 lb 1.2 oz) Vitals: 09/13/17 1421 BP: 134/63 Pulse: 75 Resp: 16 Temp: 36.7 C (98.1 F) Physical Exam Constitutional: He appears well-developed and well-nourished. Neurological: He is alert. Psychiatric: He has a normal mood and affect. Physician Assessment: Pablito will complete radiation treatment tomorrow. He has tolerated therapy very well. Not es mild fatigue. He is experienced mild genitourinary symptoms with mild dysuria and urinar y frequency. He feels that symptoms are not severe enough to warrant medical management. D enies bowel changes. Toxicities reviewed in nursing note. Disposition: Continue radiation treatment as planned. Follow-up in 3 months with PSA. Continue to follow with Dr. Martin as directed. Brynn Joshi MD Radiation Oncologist Maria Victoria Kenny RN - 09/13/2017 2:22 PM PST 09/13/17 1422 Gastrointestinal Constipation 0 - Grade 0 Diarrhea 1 - Grade 1 General Disorders and Administration Site Conditions Fatigue 1 - Grade 1 Performance Status Karnofsky Performance Score 80% documented in this en counter Plan of [...] [place] | | | | | | [id number] | | | | | | | | +--------+ + + + + documented as of this encounter Procedures + +--------+ + + + | Procedure Name | Priori | Date/Time | Associated Diagnosis | Comments | | | ty | | | | + +--------+ + + + | LABS - EXTERNAL SCAN | | 10/04/2017 | | Results for this | | | | 12:00 AM | | procedure are in the | | | | PST | | results section. | + +--------+ + + + documented in this encounter Results LABS - EXTERNAL SCAN (10/04/2017 12:00 AM PST) + + + | Narrative | Performed At | + + + | Ordered by an | | | unspecified provider. | | + + + documented in this encounter Visit Diagnoses + + | Diagnosis | + + | Prostate Cancer - Clinical T2c [place] 4+3 carcinoma - Primary Malignant neoplasm of | | prostate | + + documented in this encounter"
--- OUTSIDE RECORDS SUMMARY | ~2020-05-08 | XMS | Encounter Summary ---
Demographics + + + | Address | [address] | | | [place] [address] | + + + | Home Phone | | + + + | Preferred Language | Unknown | + + + | Marital Status | Single | + + + | [employer] Affiliation | Unknown | + + + | Race | White | + + + | Ethnic Group | Not or | + + + Author + + + | Author | [facility] | | | and [place] | + + + | Organization | [facility] | | | [...] Team Providers + +------+ + | Care Solution Manager Name | Role | Phone | + +------+ + | Pranav Auguste MD | PCP | | + +------+ + Encounter Details +--------+ + + + + | Date | Type | Department | Care Team | Description | +--------+ + + + + | 08/22/ | Hospital | [facility] | Brynn Bahena | | | 2017 | Encounter | MED CTR RADIATION | MD Ruchi [address] | | | | | ONCOLOGY [address] [place], [place] | | | | | [place], | [address] | | | | | [place] [address] | | | | | | [phone] | | | +--------+ + + + [...] [place] | | | | | | [id number] | | | | | | | | +--------+ + + + + documented as of this encounter Visit Diagnoses Not on filedocumented in this encounter"
--- OUTSIDE RECORDS SUMMARY | ~2020-05-08 | XMS | Encounter Summary ---
Demographics + + + | Address | [address] | | | [place] [address] | + + + | Home Phone | | + + + | Preferred Language | Unknown | + + + | Marital Status | Single | + + + | Bahai Affiliation | Unknown | + + + | Race | White | + + + | Ethnic Group | Not or | + + + Author + + + | Author | [facility] | | | and [place] | + + + | Organization | [facility] | | [...] Team Providers + +------+ + | Care Mortgage Loan Officer Name | Role | Phone | + +------+ + | Unknown, Physician | PCP | | + +------+ + Reason for Visit Auth/Cert +--------+--------+ + + + + | Status | Reason | Specialty | Diagnoses / | Referred By | Referred To | | | | | Procedures | Contact | Contact | +--------+--------+ + + + + | | | | Diagnoses | | [place], | | | | | Malignant | | Kevin Willett MD | | | | | neoplasm of | | [address] | | | | | prostate | | [place] | | | | | (HCC) | | [place] | | | | | Malignant | | [address] | | | | | neoplasm of | | Phone: | | | | | prostate | | [phone] | | | | | (HCC) [[id number]] | | Fax: | | | | | Procedures | | [phone] | | | | | HI REMV | | | | | | | PROSTATE,RET | | | | | | | GUSTAVO,FEDE,TO | | | | | | | T NODES | | | +--------+--------+ + + + + Encounter Details +--------+ + + + + | Date | Type | Department | Care Team | Description | +--------+ + + + + | 03/30/ | Anesthesia | [facility] | Germain Salcido | | | 2016 | Event | [facility] OP | MD Patrizia [address] | | | | | [address] | [address] [place] | | | | | [place] | [address] | | | | | [address] | [phone] | | | | | [phone] | | | | | | | Rob Cat MD | | | | | | [address] | | | | | | [place], [place] | | | | | | [address] | | | | | | | | +--------+ + + + + Anesthesia Record + + + + + | Procedure Name | Responsible | Anesthesia Start | Anesthesia Stop Time | | | Anesthesiologist | Time | | + + + + + | Radical | Germain Salcido, | 03/30/17 0756 | 03/30/17 1117 | | Prostatectomy (N/A | | | | | Abdomen) | | | | + + + + + +----+---+ + + | Da | T | Event | Comment | | te | i | | | | | m | | | | | e | | | +----+---+ + + | 07 | 0 | | | | /1 | 7 | | | | 4/ | 3 | | | | 20 | 9 | | | | 17 | | | | +----+---+ + + | | 0 | An Checkout | Pre-use anesthesia machine/equipment checkout. | | | 7 | | | | | 4 | | | | | 1 | | | +----+---+ + + | | 0 | An Start | | | | 7 | Data | | | | 4 | | | | | 2 | | | +----+---+ + + | | 0 | An Start | Reassessment prior to anesthesia induction/procedure. | | | 7 | | | | | 5 | | | | | 6 | | | +----+---+ + + | | 0 | an leonid now | | | | 7 | | | | | 5 | | | | | 9 | | | +----+---+ + + | | 0 | Antibiotic | | | | 8 | Given | | | | 0 | | | | | 0 | | | +----+---+ + + | | 0 | Preoxygenat | | | | 8 | ed | | | | 0 | | | | | 6 | | | +----+---+ + + | | 0 | An | | | | 8 | Induction | | | | 0 | | | | | 8 | | | +----+---+ + + | | 0 | An | | | | 8 | Intubation | | | | 0 | | | | | 9 | | | +----+---+ + + | | 0 | Pre-Procedu | | | | 8 | ral Timeout | | | | 1 | Completed | | | | 5 | | | +----+---+ + + | | 0 | First | | | | 8 | Inc/Proc St | | | | 1 | | | | | 8 | | | +----+---+ + + | | 1 | Oropharynx | | | | 1 | Suctioned | | | | 0 | | | | | 9 | | | +----+---+ + + | | 1 | Extubated | | | | 1 | Deep | | | | 1 | | | | | 0 | | | +----+---+ + + | | 1 | an leonid now | | | | 1 | | | | | 1 | | | | | 2 | | | +----+---+ + + | | 1 | An Stop | Patient handed off to recovery nurse. | | | 1 | | | | | 7 | | | +----+---+ + + +------+ | Meds | +------+ + + + | Name | Total | + + + | midazolam | 2 mg | + + + | propofol | 175 mg | + + + | fentaNYL injection (2 mL) | 100 mcg | + + + | HYDROmorphone | 2 mg | + + + | cisatracurium | 14 mg | + + + | ondansetron | 4 mg | + + + | dexamethasone | 4 mg | + + + | tranexamic acid (CYKLOKAPRON) 1 g | 1 g | | in 50 mL NS IVPB (simple) | | + + + | ceFAZolin in saline (ANCEF) IVPB | 2 g | | 2 g | | + + + | magnesium sulfate injection 500 | 1 g | | mg/mL (vial) | | + + + | lactated ringers (LR) infusion | 1,600 mL | + + + + + | Name | + + | N2O Flow Rate (L/Min) | + + | O2 Flow Rate (L/Min) | + + | Insp O2 | + + | Exp SEV | + + | Air Flow Rate (L/Min) | + + + + | No blood administrations on file. | + + +--------+ + + + | Type | Details | Placement | Removal | +--------+ + + + | Periph | 03/30/17; 0658; Left; Forearm; | 03/30/17 0658 by | 07/31/18 1045 by | | ulyssesl | [id number] catheter system; | Cookie Silva RN | Zakia Landry, | | IV | 18 gauge; Blood Bank; | | RN | | | distraction, intradermal | | | | | injection, tolerated well; | | | | | 07/31/18; 1045 | | | +--------+ + + + | Airway | Placement Date: 03/30/17; | 03/30/17 0809 by | 03/30/17 1130 by | | | Placement Time: 808 (created via | Germain P Skaarup, | Germain P Skaarup, | | | procedure documentation); Mask | MD | MD | | | Ventilation: EZ; Airway Grade: | | | | | 2a; Laryngoscope Blade Size: 3; | | | | | Attempts: 1; Airway Type: | | | | | endotracheal; Size: 7; Airway | | | | | Tube Secured At: 23; Trauma: | | | | | none; Other Equipment: stylette; | | | | | Placement Check: exhaled CO2 | | | | | detection device, video | | | | | laryngoscope, bilateral chest | | | | | rise, breath sounds equal | | | | | bilaterally; Removal: per | | | | | protocol, removed by RN; Removal | | | | | Date: 03/30/17; Removal Time: | | | | | 1130; Additional Comments: | | | | | Neutral Head Position, no neck | | | | | flexion or extension attempted. | | | | | Smooth IV induction, mask airway | | | | | established. Direct Laryngoscopy | | | | | with Hutchinson Laryngoscope, ETT | | | | | placed under video guidance. | | | | | BSEB/ETCO2 (auscultation and | | | | | capnography) to confirm | | | | | placement. Depth noted. | | | | | Ventilator on. | | | +--------+ + + + | NG/OG | 03/30/17; 811 (created via | 03/30/17 0812 by | 03/30/17 1100 by | | | procedure documentation); | Germain P Skaarup, | Germain P Skaarup, | | | orogastric; 18; center mouth; | MD | MD | | | other (see comments); gastric | | | | | decompression; 03/30/17; 1100 | | | +--------+ + + + | Urethr | 03/30/17; 812; Perineum cleaned; | 03/30/17812 by | 07/31/18 1045 by | | al | All elements; Bag positioned | Susana Simpson RN | Zakia Landry, | | Cathet | below the bladder; indwelling | | RN | | er | double lumen catheter; latex; | | | | | None; 1; 5; 10; other (see | | | | | comments) (pt asleep); 07/31/18; | | | | | 1045 | | | +--------+ + + + | Read | 03/30/17; 0903; abdomen; | 03/30/17 09 by | 07/31/18 1045 by | | only - | 07/31/18; 1045 | Susana Simpson RN | Zakia Landry, | | | | | RN | | Incisi | | | | | on | | | | +--------+ + + + | Drain/ | 03/30/17; 1033; #1; lower | 03/30/17 1033 by | 04/01/17 0700 by | | Device | quadrant; collapsible closed | Susana Simpson RN | Ellen Buchanan RN | | Site | device; JUANITO drain 15fr 100ml; | | | | | other (see comments) (removed by | | | | | physiciant); 04/01/17; 0700 | | | +--------+ + + + documented in this encounter Social History + + + +--------+------+ | Tobacco Use | Types | Packs/Day | Years | Date | | | | | Used | | + + + +--------+------+ | Current Every Day | Cigarettes | | 47 | | | Smoker | [...] +---------+ + | No | | | H/O alcohol abuse. | | | | | quit drinking in | | | | | 2006 | + + +---------+ + + + + | Sex Assigned at | Date Recorded | | | | + + + | Not on file | | + + + documented as of this encounter OR Notes Anesthesia Postprocedure Evaluation - Germain Salcido MD - 03/30/2017 12:12 PM PDTForm atting of this note might be different from the original. ANESTHESIA POSTANESTHESIA EVALUATION Pablito Hollins 61 y.o. male 1955 [id number] Procedure(s) Radical Prostatectomy (N/A Abdomen) Cooperates? Yes Mental Status Performs simple tasks. Respiratory Satisfactory - Airway patent (self maintained). Cardiovascular Satisfactory - Blood pressure and heart rate acceptable Temperature Satisfactory Pain Satisfactory N/V Control Satisfactory Hydration Satisfactory - No signs of dehydration Complications None apparent Vitals: 03/30/17 1145 03/30/17 1150 03/30/17 1155 BP: 129/62 128/57 129/62 Pulse: 80 79 81 Temp: Resp: 15 11 16 SpO2: 98% 98% 96% Electronically signed by Germain Salcido MD 03/30/2017 12:12 [facility] nesthesia Procedure Notes - Germain Salcido MD - 03/30/2017 11: 01 AM PDTAssociated Order(s): ANE NASO/ORAL TUBE NOTEnaso/orogastric Placement Note 03/30/2017 8:12 Indication: gastric decompression Tube type: Orogastric Size: 18 Fr Location: mouth Pain prevention: general anesthesia Placed by: GERMAIN SALCIDO Electronically Signed by:Germain Salcido MD ESig date/time: 03/30 11:02 nesthesia Proced ure Notes - Germain Salcido MD - 03/30/2017 8:26 AM PDTAssociated Order(s): ANE AIRWAY NOTEAnesthesia Airway Placement 03/30/2017 8:09 Preprocedure check: patient identified, oxygen, airway assessed, patient reassessment prior to induction, airway equipment checked and suction Mask ventilation: easy Successful technique: Hutchinson Laryngoscope blade size: 3 Airway grade: 2a (Partial view of glottis) Other equipment: stylette Attempts: 1 Airway type: endotracheal Size: 7 Cuffed: cuffed Route, reference point: right side of mouth Tube depth: 23 cm Tube secured with: adhesive tape Trauma: none Tube placement verification: carbon dioxide detection, equal bilateral breath sounds, bilat eral chest rise and video laryngoscope Performing provider: GERMAIN SALCIDO Comments: Neutral Head Position, no neck flexion or extension attempted. Smooth IV induction, mask airway established. Direct Laryngoscopy with Hutchinson Laryngoscope, ETT placed under video guidance. BSEB/ETCO2 (auscultation and capnography) to confirm placement. Depth noted. Ventilator on. Electronically Signed by: Germain Salcido MD ESig date/time : 03/30/2017 8:26 nesthesia Prepro cedure Evaluation - Gemrain Salcido MD - 03/29/2017 2:42 PM PDT ANESTHESIA PREANESTHESIA EVALUATION Pablito Hollins 61 y.o. male 1955 [id number] Procedure(s): Radical Prostatectomy (N/A Abdomen) Review of Systems / Med History Pulmonary (+) smoking history Gastrointestinal/Hepatic (+) hyperlipidemia Cancer (+) prostate cancer Physical Exam Airway MP II, TM >3 FB, Mouth opening >2 FB. Neck: full ROM, extends >30 degrees. Jaw protrus ion normal. Dental Grossly normal except where noted below.; CV Rhythm regular. Rate Normal. (-) murmur. Pulm Clear to auscultation bilaterally. Anesthesia Plan ASA 2 Type: General. Induction: Intravenous. Potential problems: None anticipated, none anticipated. Monitors: Standard ASA monitors. Consent statement:Anesthetic plan, alternatives, risks and benefits discussed with patient. Risks discussed included (but were not limited to): sore throat, pain, disability, perioper ative CV events, infection, muscle aches, voice injury, drug reaction, heart problems, nause a, respiratory events, . Consenting person understands and agrees to proceed. 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 Electronically Signed by: Germain Salcido MD ESig date/time: 03/29/2017 14:42 documented in thi s encounter Plan of Treatment +--------+ + + + + | Date | Type | Specialty | Care Team | Description | +--------+ + + + + | 02/02/ | Appointment | Radiation Oncology | Brynn Bahena | | | 2020 | | | MD [address] | | | | | | [place], [place] | | | | | | [address] | | | | | | | | +--------+ + + + + documented as of this encounter Procedures + +--------+ + + + | Procedure Name | Priori | Date/Time | Associated Diagnosis | Comments | | | ty | | | | + +--------+ + + + | ANE NASO/ORAL TUBE | Routin | 03/30/2017 | | Results for this | | NOTE | e | 11:03 AM | | procedure are in the | | | | PDT | | results section. | + +--------+ + + + | ANE AIRWAY NOTE | Routin | 03/30/2017 | | Results for this | | | e | 8:26 AM | | procedure are in the | | | | PDT | | results section. | + +--------+ + + + documented in this encounter Results NG/OG (03/30/2017 11:03 AM PDT) + + + | Narrative | Performed At | + + + | Germain Salcido MD 03/30/2017 11:03 naso/orogastric | | | Placement Note 03/30/2017 8:12 Indication: gastric decompression | | | Tube type: Orogastric Size: 18 Fr Location: mouth Pain prevention: | | | general anesthesia Placed by: GERMAIN SALCIDO | | | Electronically Signed by:Germain Salcido MD | | | ESig date/time: 03/30/2017 11:02 | | + + + + + | Procedure Note | + + | Germain Salcido MD - 03/30/2017 11:01 AM PDT naso/orogastric Placement | | Note03/30/2017 8:12Indication: gastric decompressionTube type: OrogastricSize: 18 | | FrLocation: mouthPain prevention: general anesthesiaPlaced by: GERMAIN SALCIDO | | PElectronically Signed by:MD Mingo Saleh date/time: | | 03/30/2017 11:02 | |Size: 18 Fr | |Location: mouth | |Pain prevention: general anesthesia | |Placed by: GERMAIN SALCIDO | | | | | |Electronically Signed by:MD Mingo Saleh date/time: 03/30 11:02 | + + Anesthesia Airway Note (03/30/2017 8:26 AM PDT) + + + | Narrative | Performed At | + + + | Germain Salcido MD 03/30/2017 8:26 Anesthesia Airway | | | Placement 03/30/2017 8:09 Preprocedure check: patient identified, | | | oxygen, airway assessed, patient reassessment prior to induction, | | | airway equipment checked and suction Mask ventilation: easy | | | Successful technique: Hutchinson Laryngoscope blade size: 3 Airway | | | grade: 2a (Partial view of glottis) Other equipment: stylette | | | Attempts: 1 Airway type: endotracheal Size: 7 Cuffed: cuffed | | | Route, reference point: right side of mouth Tube depth: 23 cm Tube | | | secured with: adhesive tape Trauma: none Tube placement | | | verification: carbon dioxide detection, equal bilateral breath | | | sounds, bilateral chest rise and video laryngoscope Performing | | | provider: GERMAIN SALCIDO Comments: Neutral Head Position, no | | | neck flexion or extension attempted. Smooth IV induction, mask | | | airway established. Direct Laryngoscopy with Hutchinson Laryngoscope, | | | ETT placed under video guidance. BSEB/ETCO2 (auscultation and | | | capnography) to confirm placement. Depth noted. Ventilator on. | | | Electronically Signed by: Germain Salcido MD | | | ESig date/time: 03/30/2017 8:26 | | | | | + + + + + | Procedure Note | + + | Germain Salcido MD - 03/30/2017 8:26 AM PDT Anesthesia Airway | | Placement03/30/2017 8:09Preprocedure check: patient identified, oxygen, airway assessed, | | patient reassessment prior to induction, airway equipment checked and suctionMask | | ventilation: easySuccessful technique: McGrathLaryngoscope blade size: 3 Airway grade: | | 2a (Partial view of glottis)Other equipment: styletteAttempts: 1Airway type: | | endotrachealSize: 7Cuffed: cuffedRoute, reference point: right side of mouthTube depth: | | 23 cmTube secured with: adhesive tapeTrauma: noneTube placement verification: carbon | | dioxide detection, equal bilateral breath sounds, bilateral chest rise and video | | laryngoscopePerforming provider: GERMAIN SALCIDO PComments: Neutral Head Position, no | | neck flexion or extension attempted. Smooth IV induction, mask airway | | established.Direct Laryngoscopy with Hutchinson Laryngoscope, ETT placed under video | | guidance. BSEB/ETCO2 (auscultation and capnography) to confirm placement. Depth noted. | | Ventilator on.Electronically Signed by: Germain Salcido MD | | ESig date/time: 03/30/2017 8:26 | |Tube depth: 23 cm | |Tube secured with: adhesive tape | |Trauma: none | |Tube placement verification: carbon dioxide detection, equal bilateral breath sounds, bilat eral chest rise and video laryngoscope | |Performing provider: GERMAIN SALCIDO | | | |Comments: Neutral Head Position, no neck flexion or extension attempted. | |Smooth IV induction, mask airway established. | |Direct Laryngoscopy with Hutchinson Laryngoscope, ETT placed under video guidance. BSEB/ETCO2 (auscultation and capnography) to confirm placement. Depth noted. Ventilator on. | | | | | |Electronically Signed by: Germain Salcido MD ESi date/time : 03/30/2017 8:26 | | | + + documented in this encounter Visit Diagnoses Not on filedocumented in this encounter Administered Medications + +--------+ +------+------+------+ | Medication Order | MAR | Action | Dose | Rate | Site | | | Action | Date | | | | + +--------+ +------+------+------+ | ceFAZolin in saline (ANCEF) | Given | 03/30/20 | 2 g | | | | IVPB 2 g 2 g, Intravenous, | | 17 8:00 | | | | | Administer over 30 Minutes, Prior | | AM PDT | | | | | to Incision, Starting Fri | | | | | | | 03/30/17 at 0623, For 1 dose, | | | | | | | Administer in OR, within 1 hour | | | | | | | of surgical incision. Adjust | | | | | | | administration schedule to match | | | | | | | OR schedule. Keep in | | | | | | | refrigerator., Pre-op, | | | | | | | Indications: Surgical Prophylaxis | | | | | | + +--------+ +------+------+------+ +---+---+ | | | +---+---+ + +-------+ +------+---+---+ | cisatracurium (NIMBEX) | Given | 03/30/20 | 2 mg | | | | injection Intravenous, PRN, | | 17 10:00 | | | | | Ventilator Dyssynchrony, Starting | | AM PDT | | | | | Sun03/30/17 at 0808, Anesthesia | | | | | | | Intra-op | | | | | | + +-------+ +------+---+---+ +-------+ +------+---+---+ | Given | 03/30/20 | 2 mg | | | | | 17 9:26 | | | | | | AM PDT | | | | +-------+ +------+---+---+ | Given | 03/30/20 | 2 mg | | | | | 17 8:30 | | | | | | AM PDT | | | | +-------+ +------+---+---+ +---+---+ | | | +---+---+ + +-------+ +------+---+---+ | dexamethasone (DECADRON) 10 | Given | 03/30/20 | 4 mg | | | | mg/mL injection Intravenous, | | 17 8:00 | | | | | PRN, Starting Sun03/30/17 at | | AM PDT | | | | | 0800, Anesthesia Intra-op | | | | | | + +-------+ +------+---+---+ +---+---+ | | | +---+---+ + +-------+ +--------+---+---+ | fentaNYL (PF) injection | Given | 03/30/20 | 50 mcg | | | | Intravenous, PRN, Pain, Starting | | 17 8:08 | | | | | 03/30/17 at 0800, Anesthesia | | AM PDT | | | | | Intra-op | | | | | | + +-------+ +--------+---+---+ +-------+ +--------+---+---+ | Given | 03/30/20 | 50 mcg | | | | | 17 8:00 | | | | | | AM PDT | | | | +-------+ +--------+---+---+ +---+---+ | | | +---+---+ + +-------+ +------+---+---+ | HYDROmorphone (DILAUDID) 2 | Given | 03/30/20 | 1 mg | | | | mg/mL injection Intravenous, | | 17 8:30 | | | | | PRN, Pain, Starting Sun03/30/17 | | AM PDT | | | | | at 0809, Anesthesia Intra-op | | | | | | + +-------+ +------+---+---+ +-------+ +------+---+---+ | Given | 03/30/20 | 1 mg | | | | | 17 8:09 | | | | | | AM PDT | | | | +-------+ +------+---+---+ +---+---+ | | | +---+---+ + +---------+ +---+-------+---+ | lactated ringers (LR) infusion | New Bag | 03/30/20 | | 100 | | | at 100 mL/hr, Intravenous, | | 17 11:26 | | mL/hr | | | CONTINUOUS, Starting Sun03/30/17 | | AM PDT | | | | | at 0645, Pre-op | | | | | | + +---------+ +---+-------+---+ +---------+ +---+-------+---+ | New Bag | 03/30/20 | | | | | | 17 9:00 | | | | | | AM PDT | | | | +---------+ +---+-------+---+ | New Bag | 03/30/20 | | 100 | | | | 17 6:59 | | mL/hr | | | | AM PDT | | | | +---------+ +---+-------+---+ +---+---+ | | | +---+---+ + +-------+ +-----+---+---+ | magnesium sulfate 500 mg/mL | Given | 03/30/20 | 1 g | | | | injection PRN, Starting Fri | | 17 8:30 | | | | | 03/30/17 at 0830, Anesthesia | | AM PDT | | | | | Intra-op | | | | | | + +-------+ +-----+---+---+ +---+---+ | | | +---+---+ + +-------+ +------+---+---+ | midazolam (VERSED) 1 mg/mL | Given | 03/30/20 | 2 mg | | | | injection Intravenous, PRN, | | 17 8:00 | | | | | Anxiety, Starting Sun03/30/17 at | | AM PDT | | | | | 0800, Anesthesia Intra-op | | | | | | + +-------+ +------+---+---+ +---+---+ | | | +---+---+ + +-------+ +------+---+---+ | ondansetron (ZOFRAN) injection | Given | 03/30/20 | 4 mg | | | | Intravenous, PRN, Nausea, | | 17 8:00 | | | | | Vomiting, Starting Sun03/30/17 at | | AM PDT | | | | | 0800, Anesthesia Intra-op | | | | | | + +-------+ +------+---+---+ +---+---+ | | | +---+---+ + +-------+ +--------+---+---+ | propofol (DIPRIVAN) injection | Given | 03/30/20 | 175 mg | | | | Intravenous, PRN, Starting Sun | 17 8:08 | | | | | 03/30/17 at 0808, Anesthesia | | AM PDT | | | | | Intra-op | | | | | | + +-------+ +--------+---+---+ +---+---+ | | | +---+---+ + +-------+ +-----+---+---+ | tranexamic acid in 50 mL NS | Given | 03/30/20 | 1 g | | | | (CYKLOKAPRON) IVPB (simple) | | 17 8:30 | | | | | Intravenous, Administer over 15 | | AM PDT | | | | | Minutes, PRN, Starting Fri | | | | | | | 03/30/17 at 0830, Anesthesia | | | | | | | Intra-op | | | | | | + +-------+ +-----+---+---+ +---+---+ | | | +---+---+ documented in this encounter"
--- OUTSIDE RECORDS SUMMARY | ~2020-05-08 | XMS | Encounter Summary ---
Demographics + + + | Address | [address] | | | [place] [address] | + + + | Home Phone | | + + + | Preferred Language | Unknown | + + + | Marital Status | Single | + + + | Cheondoism Affiliation | Unknown | + + + | Race | White | + + + | Ethnic Group | Not or | + + + Author + + + | Author | [facility] | | | and [place] | + + + | Organization | [facility] | | | and [place] | + [...] Team Providers + +------+ + | Care Research And Development Researcher Name | Role | Phone | + +------+ + | Pranav Auguste MD | PCP | | + +------+ + Reason for Visit + +--------+ + | Reason | Onset | Comments | | | Date | | + +--------+ + | IDT Note | 07/19/ | | | | 2017 | | + +--------+ + Encounter Details +--------+ + + + + | Date | Type | Department | Care Team | Description | +--------+ + + + + | 07/19/ | Telephone | [facility] | Maria Victoria Catherine, | IDT Note | | 2016 | | [facility] | RN | | | | | [facility] [address] | | | | | | [address] | | | | | | [place] [address] | | | | | | [phone] | | | +--------+ + + + [...] Encounter - Maria Victoria Catherine RN - 07/19/2017 12:40 PM PDT [facility] Interdisciplinary Team Navigational Checklist ? Top Priority Discipline EPIC Order Entered Consult Scheduled Consult Complete Comments: *Medical Oncology x *Radiation Oncology Dr. Madelyn Carter 07/16/17 x *Patient Navigation x *Nurse Navigator x *Social Service Survivorship Nurse Breast Health Genetics Surgical Input *Nursing assessment *Pharmacy assessment Nutrition Rehab: PT OT Speech & Language Palliative Care Clinical Trials Involvement Smoke Room Operator Visit Financial Assistance Interdisciplinary Consults Completed Date: documented in this en counter Plan of Treatment +--------+ + + + + | Date | Type | Specialty | Care Team | Description | +--------+ + + + + | 02/02/ | Appointment | Radiation Oncology | Brynn Bahena | | | 2020 | | | MD [address] | | | | | | [facility] [place] | | | | | | [id number] | | | | | | | | +--------+ + + + + documented as of this encounter Visit Diagnoses Not on filedocumented in this encounter"
--- OUTSIDE RECORDS SUMMARY | ~2020-05-08 | XMS | Encounter Summary ---
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 Name | Role | Phone | + [...] | | | | Malignant | | [address] | | | | | neoplasm of | | Phone: | | | | | prostate | | [phone] | | | | | ([facility]) [C61] | | Fax: | | | | | Procedures | | [phone] | | | | | ID REMV | | | | | | | PROSTATE,RET | | | | | | | FEDE CHEN,TO | | | | | | | T NODES | | | +--------+--------+ + + + + Encounter Details +--------+ + + + + | Date | Type | Department | Care Team | Description | +--------+ + + + + | 03/30/ | Hospital | [facility] | Kevin Martin MD | Prostate cancer | | 2017 - | Encounter | MED [facility] SUR[facility] | [address] | ([facility]) | | | | [address] | [place] | | | [birth year]/ | | [place] [id number] | [phone] | | | 2017 | | [phone] | [phone] | | | | | | | [...] Tobacco Cessation: Ready to Quit: Yes | | Comments: smoking 1 cigarette per day [...] + + + | Blood Pressure | 126/65 | 04/01/2017 7:31 AM | | | | | PDT | | + + + + + | Pulse | 77 | 04/01/2017 7:31 AM | | | | | PDT | | + + + + + | Temperature | 35.5 C (95.9 F) | 04/01/2017 7:31 AM | | | | | PDT | | + + + + + | Respiratory Rate | 16 | 04/01/2017 7:31 AM | | | | | PDT | | + + + + + | Oxygen Saturation | 97% | 04/01/2017 7:31 AM | | | | | PDT | | + + + + + | Inhaled Oxygen | - | - | | | Concentration | | | | + + + + + | Weight | 88.4 kg (194 lb 14.4 | 03/30/2017 6:17 AM | | | | oz) | PDT | | + + + + + | Height | 188 cm (6' 2") | 03/30/2017 6:17 AM | | | | | PDT | | + + + + + | Body Mass Index | 25.02 | 03/30/2017 6:17 AM | | | | | PDT | | + + + + + documented in this encounter Discharge Summaries Kevin Martin MD - 04/01/2017 7:28 AM PDT DISCHARGE SUMMARY Pt. Name/Age/: Pablito Hollins 61 y.o. 1955 Date of Admission: 03/30/2017 Date of Discharge: 04/01/2017 Admitting Physician: Kevin Martin MD PCP: Physician Unknown PA Discharging Physician: Kevin Martin Consultants: Primary Discharge Dx: Clinical T2c moderately differentiated prostate carcinoma Patient Active Problem List Diagnosis Depression with anxiety - Anxiolytic Use Prostate Cancer - Clinical T2c Bath 4+3 carcinoma Nodular prostate with urinary obstruction Smoker - Daily Recovering alcoholic in remission Secondary Discharge Dx: Narcotic-dependent chronic back pain Procedures: Bilateral iliac and obturator lymphadenectomy. Radical retropubic prostatectomy. Hospital Course, including Complications: The patient ambulated the afternoon of surgery a nd had a bowel movement within 24 hours of surgery. He remained afebrile. JUANITO drain was rem andra the morning of discharge. He is discharge with Escobar catheter to bedside bag. Medications Reconciled upon Discharge are: Discharge Medications Unchanged Medications Details ALPRAZolam 2 MG tablet Take 1 mg by mouth 2 times daily. aka: XANAX atorvaSTATin 40 mg tablet Take 40 mg by mouth nightly. aka: LIPITOR CHANTIX CONTINUING MONTH SMITH 1 MG tablet Generic drug: varenicline take 1 tablet by mouth twice a day clonazePAM 1 mg tablet Take 1 mg by mouth nightly. aka: klonoPIN fish oil 1,000 mg capsule Take 2,000 mg by mouth nightly. HYDROcodone-acetaminophen 10-325 mg per tablet Take 1 tablet by mouth every 4 hours as needed. aka: NORCO Loratadine 10 MG Caps Take 10 mg by mouth Daily. meloxicam 15 mg tablet Take 15 mg by mouth nightly. aka: MOBIC MULTI-VITAMIN PO Take 1 tablet by mouth Daily. oxyCODONE-acetaminophen 5-325 mg per tablet take 1 tablet by mouth four times a day MAY FILL 02-06-17 aka: PERCOCET tiZANidine 4 mg tablet Take 4 mg by mouth 3 times daily. aka: ZANAFLEX traMADol 50 mg tablet Take 100 mg by mouth 4 times daily. aka: ULTRAM traZODone 100 mg tablet Take 100 mg by mouth nightly. aka: DESYREL Discontinued Medications bicalutamide 50 mg tablet aka: CASODEX There is no immunization history on file for this patient. Vital Signs: Temp: 36.7 C (98.1 F) BP: 112/54 Pulse: 76 Resp: 16 SpO2: 94 % Min/Max Temp past 24 hours:Temp Av.8 C (98.3 F) Min: 36.7 C (98.1 F) Max: 3 6.9 C (98.4 F) Intake/Output Summary (Last 24 hours) at 04/01/17 0728 Last data filed at 04/01/17 0535 Gross per 24 hour Intake 2208 ml Output 5997 ml Net -3789 ml Last Wt. Before discharge: Weight: 88.4 kg (194 lb 14.4 oz) Pending study results on DC: Surgical pathology Follow-Up Plans: Follow-up with: Dr. Martin Diet: normal Activity: Wait until catheter is removed to resume driving. Avoid lifting more than 1 0-15 pounds, straining or climbing for 5 weeks. You may walk for exercise. Okay to shower starting Sunday, April 02. Electronically signed by: Kevin Martin, 04/01/2017 7:28 [facility] documented in this enc ounter Discharge Instructions Instructions Kevin Martin MD - 04/01/2017Wait until Sunday morning to shower. Keep cath eter tube taped to leg and bag lower than bladder. Drink at least 2 quarts of liquid daily. Use a stool softener or laxative if you are not having a soft daily bowel movement. Call Robert Martin if you develop fever or increasing abdominal pain. documented in this encounter Medications at Time [...] + + + +---------+ + + | CHANTIX CONTINUING | take 1 tablet by | | 0 | 02/19/20 | | | MONTH SMITH 1 MG | mouth twice a day | | | 17 | 7 | | tablet | | | | [...] 1 tablet by | | 0 | 02/27/20 | | | HYDROcodone-acetamin | mouth every 4 hours | | | 17 | 7 | | ophen (NORCO) 10-325 | as needed. | | | | | | mg per tablet | | | | | | + + + +---------+ + + | meloxicam (MOBIC) | Take 15 mg by mouth | | 0 | 02/17/20 | | | 15 mg tablet | nightly. | | | 17 | 7 | + + + +---------+ + + | | take 1 tablet by | | 0 | 02/07/20 | | | oxyCODONE-acetaminop | mouth four times a | | | 17 | 7 | | hen (PERCOCET) 5-325 | day MAY FILL | | | | | | mg per tablet | 05-23-17 | | | | | + + [...] documented as of this encounter Progress Notes Kevin Martin MD - 03/31/2017 7:16 AM PDT DATE/TIME: 03/31/2017 7:16 ASSESSMENT AND PLAN: 1. Excellent progress. JUANITO drain output 30 cc since surgery. Anticipate discharge tomorrow . SUBJECTIVE/ROS: Pablito Hollins is now Hospital Day: 2 following radical retropubic prostatectomy. He has ambulated several times. He had a bowel movement a few hours ago. His primary complai nt is his chronic low back pain. No nausea. Urine is yellow and clear. CURRENT INFUSIONS lactated ringers 75 mL/hr at 03/30/17 2206 CURRENT MEDICATIONS ALPRAZolam 1 mg Oral BID celecoxib 200 mg Oral BID clonazePAM 1 mg Oral Nightly gabapentin 200 mg Oral TID polyethylene glycol 17 g Oral Daily traZODone 100 mg Oral Nightly I personally reviewed the above medications. OBJECTIVE: Temp: 37.3 C (99.1 F) BP: 123/59 Pulse: 96 Resp: 18 SpO2: 94 % on Min/Max Temp past 24 hours:Temp Av C (98.6 F) Min: 36.7 C (98.1 F) Max: 37. 3 C (99.1 F) Intake/Output Summary (Last 24 hours) at 03/31/17 0716 Last data filed at 03/31/17 0538 Gross per 24 hour Intake 6254 ml Output 3035 ml Net 3219 ml Wt. Admission: Weight: 90.8 kg (200 lb 3.2 oz) Wt. Current: Weight: 88.4 kg (194 lb 14. 4 oz) General: Alert and comfortable Heart: Lungs: Clear Abdomen: Soft without tympany. Dressing dry Chemistry: Hematology: Electronically Signed by: Kevin Martin MD, 03/31/2017 7:16 [facility] MD at 03/31 7:18 AM PDTdocumented in this encounter H&P Notes Kevin Martin MD - 03/30/2017 7:32 AM PDTNo interval change in history and physical exam . evin Martin MD - 0 03/28/2017 8:02 AM PDTChief Complaint Back pain History of Present Illness This 61 year old male is ready to proceed with retropubic prostatectomy. Risk of infection , bleeding, wound hernia, loss of erection, reduced urine control, injury to rectum, injury to obturator nerve, thromboembolic events, vesicourethral stenosis is discussed. PSA was 4.11 October 2016 with a repeat PSA of 4.23 and normal urinalysis 01/11/17. His pr ostate had a raised slightly fixed left inferior 10 mm nodule. Transrectal ultrasound 01/25 measured a 22 cc gland. Clinical T2c Joya 4+3 carcinoma is recovered with dominant d isease in the left mid and left inferior peripheral zone, but a tiny percentage core positiv e in the right superior gland. Bicalutamide was initiated 02/03/17. He has a two-year history of obstructing prostate and was voiding up to every 30 minutes wh ile awake and 4-5 times a night with slow flow requiring straining but post void residual of only 27 cc. Tamsulosin and bicalutamide improved pattern. He has a several year history o f compromised erections. Review of Systems He had rheumatic fever as a child. He reached maximum performance on an exercise treadmill in 2007. He can perform physically strenuous activity without cardiac symptoms. He has ch ronic narcotic dependent back pain. No lower extremity numbness or weakness. Formed stool daily without hematochezia. Rare dyspepsia. No frequent headache, dizziness, history of [place], nocturnal dyspnea, angina, skin cancer, hepatitis, gastric ulcer. Active Problems Depression with anxiety (F41.8) Elevated PSA (R97.20) Heart murmur (R01.1) Hyperlipemia (E78.5) Lumbar disc disease (M51.9) Nodular prostate with urinary obstruction (N40.3,N13.8) Prostate cancer (C61) Surgical History History of Inguinal Hernia Repair Family History Mother Family history of Hodgkin's lymphoma (Z80.7) Family history of malignant neoplasm of brain (Z80.8) Family history of malignant neoplasm of breast (Z80.3) Brother Family history of Hodgkin's lymphoma (Z80.7) Family history of malignant neoplasm of brain (Z80.8) Family history of malignant neoplasm of prostate (Z80.42) Social History Current every day smoker (F17.200) Recovering alcoholic in remission (F10.21) He is down to smoking 1 cigarette daily. 2 cups of coffee daily. Alcohol abuse quit 2006. Current Meds ALPRAZolam 2 MG Oral Tablet; 1/2 tablet up to BID PRN; Therapy: 11Jan2017 to Recorded Atorvastatin Calcium 40 MG Oral Tablet; take 1 tablet by mouth daily; Therapy: 05Jan2017 to Recorded Bicalutamide 50 MG Oral Tablet; TAKE 1 TABLET DAILY; Therapy: 03Feb2017 to (Evaluate:[id number]) Requested for: 03Feb2017; Last Rx:03Feb2017 Ordered ClonazePAM 1 MG Oral Tablet; take 1 tablet by mouth at bedtime; Therapy: 11Jan2017 to (Evaluate:[id number]) Recorded Daily Multiple Vitamins Oral Tablet; TAKE 1 TABLET DAILY; Therapy: 05Jan2017 to Recorded Fish Oil 1000 MG Oral Capsule; Take 2 capsule qhs; Therapy: 05Jan2017 to Recorded Hydrocodone-Acetaminophen 10-325 MG Oral Tablet; TAKE 1 TABLET EVERY 4 HOURS NEEDED FOR PAIN; Therapy: 26Mar2017 to (Evaluate:[id number]) Recorded Loratadine 10 MG Oral Tablet; TAKE 1 TABLET DAILY NEEDED; Therapy: 11Jan2017 to (Evaluate:[id number]) Recorded TiZANidine HCl - 4 MG Oral Tablet; TAKE 1 TABLET 3 TIMES DAILY NEEDED; Therapy: 05Jan2017 to (Evaluate:20Jan2017) Recorded TraMADol HCl - 50 MG Oral Tablet; 1-2 tablets by mouth every 6 hrs as needed for pain; Therapy: 11Jan2017 to Recorded TraZODone HCl - 50 MG Oral Tablet; Therapy: 11Jan2017 to Recorded Allergies No Known Drug Allergies Vitals Vitals Panel Recorded: 26Mar2017 03:43PM Heart Rate: 68 Blood Pressure: 132 / 68 Weight: 200.2 lb BMI Calculated: 25.7 BSA Calculated: 2.17 Results/Data Glucose 109, hematocrit 38.8 with otherwise normal basic chemistry and CBC on 02/06/17. Echocardiogram 03/08/17 at [facility] reports normal left ventricle with ejection fraction 60-6 5%, normal right ventricle, calcified aortic valve with mild regurgitation and moderate sten osis with a mean gradient of 28 mmHg EKG normal 03/08/17. Physical Exam Pleasant alert well proportioned male. Clear speech and normal gait. Lungs are clear to a uscultation. Heart has regular rate with grade 3/6 ejection murmur. Exam December 2016 noted circumcised penis without lesion. Normal testes. Assessment Prostate cancer (C61) Erectile dysfunction (N52.9) Plan 1. Clinical T2c moderately differentiated intermediate risk prostate cancer with urinary o bstruction. He had high core positivity in the left mid and left lower gland. Retropubic p rostatectomy planned. 2. Tobacco addiction. 40 minute visit predominantly in counseling. Signatures Electronically signed by : Kevin Martin M.D.; Mar 26 2017 5:53PM PST (Author) documented in this enc ounter Miscellaneous Notes Plan of Care - Ellen Buchanan RN - 04/01/2017 1:23 PM PDTProblem: Patient Care Rebecca hays (Adult) Goal: Care Team Goals & Evaluation PROBLEM-RELATED GOALS: 1. Prevent post operative hypoxia 2. Phan will report adequate pain control 04/26 by 04/02/17. 3. Phan will void <120 mL of urine in a 4 hour period by 04/02/17. 4. Phan will have no falls or injuries by 04/02/17. 5. Catherine will ambulate in hallways x 3 and be up in chair for all meals by 04/02/17. 6. Phan will have no signs or symptoms of infection by 04/02/17. STRATEGY TO ACHIEVE GOALS: -Titrate oxygen to room air keeping oxygen saturation at or >88% by 04/02/17. -Offer scheduled and PRN pain medication as needed to achieve pain goal. -Assess urine output hourly, if output less than 120 ml in [address] Martin. -Non skid footwear, bed alarm if indicated, call light within reach and frequent rounding. -Encourage pt to be up in chair for all meals and to walk the halls x 3. -Assess drain, dressings, vitals and labs. Contact MD with any concerns. Outcome: Improving Goal Evaluation: Phan has been alert and oriented all day. He has been up in the chair and ambulating in the cohen. BT's +, BM this morning. Lungs clear, HRR, He has an indwelling escobar catheter that will go home with him. Escobar care and precautions reviewed. Phan denies abd pain but C/O l ow back pain he has had for 'years'. Medicated x1 with NOrco with relief stated 10/27. IV a nd JUANITO drain discontinued this am by Doctor. Dressing replaced by Doctor. No drainage noted . Home with in private car. lan of Care - Anna Fonseca RN - 04/01/2017 4:44 AM PDTProblem: Patient Care Overview (Adult) Goal: Care Team Goals & Evaluation PROBLEM-RELATED GOALS: 1. Prevent post operative hypoxia 2. Phan will report adequate pain control 04/26 by 04/02/17. 3. Phan will void <120 mL of urine in a 4 hour period by 04/02/17. 4. Phan will have no falls or injuries by 04/02/17. 5. Catherine will ambulate in hallways x 3 and be up in chair for all meals by 04/02/17. 6. Phan will have no signs or symptoms of infection by 04/02/17. STRATEGY TO ACHIEVE GOALS: -Titrate oxygen to room air keeping oxygen saturation at or >88% by 04/02/17. -Offer scheduled and PRN pain medication as needed to achieve pain goal. -Assess urine output hourly, if output less than 120 ml in [address] Martin. -Non skid footwear, bed alarm if indicated, call light within reach and frequent rounding. -Encourage pt to be up in chair for all meals and to walk the halls x 3. -Assess drain, dressings, vitals and labs. Contact MD with any concerns. Goal Evaluation: Pablito is a/o x4. He states to be doing much better than yesterday.One hydro given this am t. He c/o of minimal bladder discomfort. Escobar draining good amount of c/y urine. He slept w ell during the night. Dressing to mid-abdomen is CDI. No c/o of n/v. lan of Care - Brisa Frederick RN - 03/31/2017 8:24 PM PDTProblem: Patient Care Overview (Adult) Goal: Care Team Goals & Evaluation PROBLEM-RELATED GOALS: 1. Prevent post operative hypoxia 2. Phan will report adequate pain control 04/26 by 04/02/17. 3. Phan will void <120 mL of urine in a 4 hour period by 04/02/17. 4. Phan will have no falls or injuries by 04/02/17. 5. Catherine will ambulate in hallways x 3 and be up in chair for all meals by 04/02/17. 6. Phan will have no signs or symptoms of infection by 04/02/17. STRATEGY TO ACHIEVE GOALS: -Titrate oxygen to room air keeping oxygen saturation at or >88% by 04/02/17. -Offer scheduled and PRN pain medication as needed to achieve pain goal. -Assess urine output hourly, if output less than 120 ml in [address] Martin. -Non skid footwear, bed alarm if indicated, call light within reach and frequent rounding. -Encourage pt to be up in chair for all meals and to walk the halls x 3. -Assess drain, dressings, vitals and labs. Contact MD with any concerns. Outcome: Improving Goal Evaluation: Phan escobar remains patent, collecting adequate amounts- 3125 mL out put during this shift. Ambulating modified independently, walking the hallways x 4. Complai ns of back pain 04/26 treating with scheduled meds and [place] x 2 during shift. 37 mL of sero sanguinous fluid collected from JUANITO drain, dressing to abdomen is CDI. Vitals stable. lan of Care - Zohreh Ozuna RN - 03/31/2017 1:10 AM PDTProblem: Patient Care Overview (Adult) Goal: Care Team Goals & Evaluation PROBLEM-RELATED GOALS: 1. Prevent post operative hypoxia 2. Phan will report adequate pain control 04/26 by 04/02/17. 3. Phan will void <120 mL of urine in a 4 hour period by 04/02/17. 4. Phan will have no falls or injuries by 04/02/17. 5. Ctaherine will ambulate in hallways x 3 and be up in chair for all meals by 04/02/17. 6. Phan will have no signs or symptoms of infection by 04/02/17. STRATEGY TO ACHIEVE GOALS: -Titrate oxygen to room air keeping oxygen saturation at or >88% by 04/02/17. -Offer scheduled and PRN pain medication as needed to achieve pain goal. -Assess urine output hourly, if output less than 120 ml in [address] Martin. -Non skid footwear, bed alarm if indicated, call light within reach and frequent rounding. -Encourage pt to be up in chair for all meals and to walk the halls x 3. -Assess drain, dressings, vitals and labs. Contact MD with any concerns. Outcome: Improving Goal Evaluation: A&O x4, CMS intact, drsg CDI, vitals stable, escobar present draining light autumn colored uri ne at the beginning of the shift and progressed to dark autumn colored urine later in the daren ft (output >120mL in a 4hr period), UO checked and recorded hourly, heart rate reg w/murm ur present, lungs clear on RA, bowel tones active x4 (last BM was 03-29-17), pt denied the pr esence of n/v, tolerating a general diet well, SCD's in place, IVF maintained at 75mL/hr per Dr. Martin, pt calls appropriately and is able to make needs known. Phan c/o 04/26 pain to his lower back; medicated w/1 tab [place] (5's) PRN. JUANITO drained 25mL sero-sanguineous fluid this shift. lan of Care - Brisa Nesbitt RN - 03/30/2017 8:56 PM PDTProblem: Patient Care Overview (Adult) Goal: Care Team Goals & Evaluation PROBLEM-RELATED GOALS: 1. Prevent post operative hypoxia 2. Phan will report adequate pain control 04/26 by 04/02/17. 3. Phan will void <120 mL of urine in a 4 hour period by 04/02/17. 4. Phan will have no falls or injuries by 04/02/17. 5. Catherine will ambulate in hallways x 3 and be up in chair for all meals by 04/02/17. 6. Phan will have no signs or symptoms of infection by 04/02/17. STRATEGY TO ACHIEVE GOALS: -Titrate oxygen to room air keeping oxygen saturation at or >88% by 04/02/17. -Offer scheduled and PRN pain medication as needed to achieve pain goal. -Assess urine output hourly, if output less than 120 ml in [address] Martin. -Non skid footwear, bed alarm if indicated, call light within reach and frequent rounding. -Encourage pt to be up in chair for all meals and to walk the halls x 3. -Assess drain, dressings, vitals and labs. Contact MD with any concerns. Goal Evaluation: Phan arrived on surgical floor at 1245. Hover kia was utilized to safely transfer patient from bed to [facility]. LSC on 2L, HRR w/murmer, bowel tones hypoactive . Escobar in place collecting adequate amounts of urine during shift. Complains of back pain, treating with scheduled Toradol, Neurontin and PRN [place] as needed. Ambulating CGA/Minimum assist w/FWW, walked out into the hallways once and was up in chair for the remainder of the evening. JUANITO drain collected 5 ml of sanguinous drainage. Dressing to abdomen is CDI. Call light within reach, no falls or injuries. lan of Care - Wojciech Stewart, BRAULIO - 03/30/2017 2:05 PM PDTProblem: Patient Care Overview (Adult) Goal: Care Team Goals & Evaluation PROBLEM-RELATED GOALS: 1. Prevent post operative hypoxia STRATEGY TO ACHIEVE GOALS: 1. Titrate oxygen to room air keeping oxygen saturation at or >88% by 04/02/17 RESTRAINT-RELATED GOALS: STRATEGIES TO ACHIEVE RESTRAINT GOALS: Goal Evaluation: Oxygen saturation on 2 l/m =99%. Oxygen off for room air oximetry, will continue to follow p Note - Alis Martin MD - 03/30/2017 11:53 AM PDTFormatting of this note might be different from the origin [facility] Pt. Name/Age/: Pablito Hollins 61 y.o. 1955 Med. Record Number: [id number] Date of admission: 03/30/2017 Date of Operation/Procedure: 03/30/2017 Preoperative Diagnosis: Clinical T2c moderately differentiated prostate carcinoma (HCC) [C 61] Post-Op Diagnosis Codes: * Malignant neoplasm of prostate (HCC) [C61] Postoperative Diagnosis: Same Surgeon: Kevin Martin MD Tree Scout(s): Kevin Butler MD Anesthesia Provider(s): Anesthesiologist: Iron Salcido MD House Wirer Helper: John Calvinologist Anesthesia Type: General Procedure(s): Bilateral iliac and obturator lymphadenectomy Radical Retropubic Prostatectomy Operative Indications: Pablito Hollins is a 61 y.o. year old male with Joya 4+3 ca rcinoma predominantly in the left mid and left inferior prostate, but also the right superio r peripheral zone. Operative Findings: Operation: The patient was identified as Pablito Hollins and the procedure was confir med as stated above. The patient was placed in the supine position. SCD devices were applie d. Following the induction of adequate general anesthesia, the lower abdomen prepped and almaz ped in the usual sterile fashion. A 22 Fr escobar was inserted. Midline infraumbilical incision began at the symphysis pubis sp anning approximately 7 cm. The incision was deepened with electrocautery. Rectus fascia wa s incised and muscle bellies of the rectus abdominis parted. Transversalis fascia was penet rated. Blunt paravesical dissection was performed. A Bookwalter retractor was positioned. Lymph nodes on the left were harvested with harmonic scalpel bordered by entry to the femor al canal, the lateral surface of the obturator fossa, medial aspect of the external iliac ve in, bifurcation of internal and external iliac artery. Lymph nodes on the right were remove d with the same technique and boundaries. Endopelvic fascia was incised bilaterally and blunt paravesical dissection performed. Pubo prostatic ligaments were incised close to the prostate. Endopelvic fascia was gathered over the anterior prostate with Vicryl suture. A Diaz clamp was passed between the dorsal v ein and urethra. The dorsal vein was tied with 0 Vicryl and a 2-0 Vicryl suture ligature. The dorsal vein was divided with Ligasure noting good hemostasis. Anterolateral pillars wer e taken down sharply. The urethra was elder-transected adjacent to the prostate. Escobar cath eter was lifted through the wound, clamped and divided. The posterior surface of the urethr a was elevated on a right angle and divided with scalpel. Rectourethralis fascia was penetr ated sharply. Blunt dissection the prostate from rectum. Latera pedicles were ta taiwo down with Vicryl ties. The prostate was rotated superiorly. Denonvillier's was incised transversely at the origin of the seminal vesicles. The seminal vesicles were dissected wit h Ligasurel. The ampulla of the vas was divided. The prostate was rotated inferiorly. Chantel tomic bladder neck dissection was performed. Escobar catheter balloon was deflated. Posterio r bladder neck was elevated a right angle and divided. Ureteral orifices were located 2 cm back from the bladder neck. Remaining fascial attachments between posterior prostate and bl adder neck were divided with Ligasure. The prostate was passed off the surgical wound. The wound was irrigated and inspected for hemostasis. Bladder neck tapering was performed with a single [id number] 0 chromic . A Andujar sound was advanced per urethra. 3-0 Monocryl was introduced to the urethra at th e 5:00, 3:00, 1:00, 11:00, 9:00 and 7:00 positions and transferred to the bladder neck in th e same orientation. Andujar sound was removed. A new 20 Finnish Escobar catheter was introduc ed to the bladder. The bladder was drawn down to the urethra, and anastomotic sutures tied. The bladder was irrigated noting watertight junction. A 15 Finnish Tylor drain was introdu arpan through a separate lower quadrant incision and secured to the skin with Vicryl. Rectus fascia was closed with a single length of #0 looped PDS. Hoa's was closed with Vicryl fo llowed by Monocryl skin closure. Dressings were applied. Estimated Blood Loss: 200 cc Transfused: no Drains: 20 Fr Escobar, 15 Finnish round drain in the retropubic space Specimen (s): ID Type Source Tests Collected by Time Destination A : right iliac obturator lymph node Kevin Martin MD 03/30/2017 0846 Pathology B : left iliac obturator lymph node Kevin Martin MD 03/30/2017 0856 Pathology C : prostate Kevin Martin MD 03/30/2017 1007 Pathology Complications: none Electronically Signed by: Kevin Martin MD, 03/30/2017 11:53 [facility] lan of Care - Mauricio Mckeon Chaplain - 03/30/2017 7:56 AM PDT Spiritual Care Pablito Hollins is a 61 y.o. 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 Spiritual Evaluation: No judaism preference. Spiritual Intervention: Pastoral support and prayer prior to surgery. Spiritual Outcomes: Patient was anxious prior to surgery, prayer seem to allow the patient to relax as he prepared for surgery. Spiritual Goals / Follow-up: Will see the patient as requested. If there are any other spiritual care issues that arise, please contact . documented in t his encounter Plan of Treatment +--------+ + + + + | Date | Type | Specialty | Care Team | Description | +--------+ + + + + | 02/02/ | Appointment | Radiation Oncology | Brynn Bahena | | | 2020 | | | MD Marcelo Hopper [facility] | | | | | | [facility] [place] | | | | | | [phone] | | | | | | | | +--------+ + + + + documented as of this encounter Procedures + +--------+ + + + | Procedure Name | Priori | Date/Time | Associated Diagnosis | Comments | | | ty | | | | + +--------+ + + + | PROSTATECTOMY | | 03/30/2017 | Malignant neoplasm | | | RADICAL | | 7:59 AM | of prostate (HCC) | | | | | PDT | | | + +--------+ + + + | TYPE AND SCREEN | Routin | 03/30/2017 | | Results for this | | | e | 6:57 AM | | procedure are in the | | | | PDT | | results section. | + +--------+ + + + | SURGICAL PATHOLOGY | Routin | 03/30/2017 | | Results for this | | EXAM | e | 12:00 AM | | procedure are in the | | | | PDT | | results section. | + +--------+ + + + | ECG - EXTERNAL SCAN | | 03/08/2017 | | Results for this | | | | 12:00 AM | | procedure are in the | | | | PDT | | results section. | + +--------+ + + + | ECHO-EXTERNAL SCAN | | 03/08/2017 | | Results for this | | | | 12:00 AM | | procedure are in the | | | | PDT | | results section. | + +--------+ + + + | LABS - EXTERNAL SCAN | | 02/06/2017 | | Results for this | | | | 12:00 AM | | procedure are in the | | | | PDT | | results section. | + +--------+ + + + documented in this encounter Results Type and Screen (03/30/2017 6:57 AM PDT) + + + + + + | Component | Value | Ref Range | Performed | Pathologist | | | | | At | Signature | + + + + + + | ABO | B | | [facility] | [facility] - | | | | | | [facility]LOOD BANK | | + + + + + + | Rh Type | Positive | | [facility] | | | | | [facility] | | | | | | [facility] | | | | | | [facility] - | | | | | | BLOOD BANK | | + + + + + + | Antibody | Negative | | [facility] | | | Screen | | | [facility] | | | | | | [facility] | | | | | | [facility] - | | | | | | BLOOD BANK | | + + + + + + + + | Specimen | + + | Blood | + + + + + + + | Performing | Address | City/State/Zipcode | Phone Number | | Organization | | | | + + + + + | [facility] | [address] | [place], [place] | | | [facility] | | [id number] | | | - BLOOD BANK | | | | + + + + + Surgical Pathology Exam (03/30/2017 12:00 AM PDT) + + | Specimen | + + | | + + + + + | Narrative | Performed At | + + + | SPECIMEN(S): A RIGHT ILIAC OBTURATOR LYMPH NODE SPECIMEN(S): B LEFT | [facility] | | ILIAC OBTURATOR LYMPH NODE SPECIMEN(S): C PROSTATE SPECIMEN SOURCE: | [facility] | | A. RIGHT ILIAC OBTURATOR LYMPH NODE B. LEFT ILIAC OBTURATOR LYMPH | | | NODE C. PROSTATE CLINICAL HISTORY: C61 (malignant neoplasm of | | | prostate) FINAL PATHOLOGIC DIAGNOSIS: A. Lymph node, right iliac | | | obturator, dissection: - Two lymph nodes, negative for metastatic | | | carcinoma (0/2). B. Lymph node, left iliac obturator, dissection: - | | | Two lymph nodes, negative for metastatic carcinoma (0/2). C. | | | Prostate, resection: - Prostatic adenocarcinoma with the following | | | features: - Histologic type: Adenocarcinoma, acinar type. | | | - Joya score: 3+4 = 7. - Grade group: 2. | | | - Tumor location: Right and left prostate lobes. - Tumor | | | quantitation: Tumor involves approximately 20% of prostatic tissue. | | | - Extraprostatic extension: Indeterminate. (See Comment) | | | - Seminal vesicle invasion: Not identified. - Urinary | | | bladder neck invasion: Not identified. - Perineural | | | invasion: Present. - Angiolymphatic invasion: Not | | | identified. - Surgical margins: Surgical margins involved by | | | prostatic adenocarcinoma to include right and left apex margins. | | | - Prostate size: 4.5 x 4 x 3.5 cm, 34 gm. - Surgical | | | pathology stage: At least pT2c, pN0. (see comment) COMMENT: | | | Histologic sections show bilateral prostatic adenocarcinoma confined | | | to the mid to lower lobes of prostate. Prostatic adenocarcinoma | | | extends to the inked and cauterized surgical margins in the bilateral | | | apex. Therefore, extraprostatic extension of prostatic | | | adenocarcinoma cannot be excluded at the prostatic apex. As part of | | | [facility]' Quality Improvement Program, this case was | | | reviewed by another member of our pathology staff. CLR:YONASK:[facility]:C1NR | | | GROSS DESCRIPTION: A. The specimen is labeled "Pablito Hollins, right | | | iliac obturator lymph node". Submitted in formalin are two lymph nodes | | | within the fibroadipose tissue. The fibroadipose tissue measures 8 x | | | 4 x 2 cm. The lymph nodes are 0.5 cm and then a large matted lymph | | | node measuring up to 4 cm in length. The lymph nodes are submitted | | | in three cassettes. Block Cummings: (A1) Possible lymph nodes for | | | count (A2-A3) Large matted lymph node, serially sectioned B. The | | | specimen is labeled "Pablito Hollins, left iliac obturator lymph node". | | | Submitted in formalin is a 6 x 4 x 2 cm aggregate of fibroadipose | | | tissue and lymph node. Two matted lymph nodes are identified | | | measuring 3 and 4 cm in maximum dimension. The lymph nodes are | | | totally submitted in three cassettes. Block Cummings: (B1) One | | | matted lymph node (B2-B3) Other matted lymph node, serially | | | sectioned C. The specimen is labeled "Pablito Hollins, prostate". | | | Submitted in formalin is a 34 gm, 4.5 x 4 x 3.5 cm prostate. Attached | | | to the prostate is a 4.5 x 3 x 1 cm aggregate of right and left | | | seminal vesicles and vas deferens. The bilateral vas deferens and | | | seminal vesicles all measure 2.5-3 cm in length. The prostate is | | | serially sectioned revealing pink-brandon parenchyma with several small | | | nodules measuring up to 0.4 cm within the posterior lobes. The | | | right half of the prostate is inked orange, the left half is inked | | | blue. The prostate is serially sectioned with sales representative malt [employer] sections | | | submitted in twenty cassettes. Block Cummings: (C1) Right apex, | | | radially sectioned (C2) Left apex, radially sectioned (C3) | | | Distal right anterior (C4) Distal right posterior | | | (C5) Distal left anterior (C6) Distal left posterior | | | (C7) Peripheral margins from distal prostate. (C8) | | | Mid right anterior (C9) Mid right posterior (C10) | | | Mid left anterior (C11) Mid left posterior (C12) | | | Posterior prostate margins near base (C13) | | | Proximal right anterior (C14) Proximal right | | | posterior (C15) Proximal left anterior (C16) | | | Proximal left posterior (C17) Right base, radially | | | sectioned (C18) Left base, radially sectioned (C19) | | | Right seminal vesicle and right vas deferens margin | | | (C20) Left seminal vesicle and left vas deferens margin | | | [facility] MICROSCOPIC EXAMINATION: Histologic sections of all | | | submitted blocks are examined by light microscopy. These findings, | | | together with the gross examination, support the pathologic diagnosis. | | | PERFORMING LABORATORY: Tissue processing and slide preparation were | | | performed by [facility], [address] [place] [address], [facility] | | | [place] [address] (Patient Office Rep: Fred Warner M.D.; CLIA#: | | | [id number]). Professional interpretation was performed by [employer] | | | [facility], [address] [place] [address], [address], [place] [address] | | | (Patient Office Rep: Fred Warner M.D.; CLIA#: [id number]). | | | Diagnostician: Pranav Riley MD Pathologist Electronically | | | Signed 04/02/2017 | | + + + + +---------+ + + | Performing | Address | City/State/Zipcode | Phone Number | | Organization | | | | + +---------+ + + | [facility] | | | | | [facility] | | | | + +---------+ + + ECHO-EXTERNAL SCAN (03/08/2017 12:00 AM PDT) + + + | Narrative | Performed At | + + + | Ordered by an | | | unspecified provider. | | + + + ECG - EXTERNAL SCAN (03/08/2017 12:00 AM PDT) + + + | Narrative | Performed At | + + + | Ordered by an | | | unspecified provider. | | + + + LABS - EXTERNAL SCAN (02/06/2017 12:00 AM PDT) + + + | Narrative | Performed At | + + + | Ordered by an | | | unspecified provider. | | + + + documented in this encounter Visit Diagnoses + + | Diagnosis | + + | Prostate cancer (HCC) Malignant neoplasm of prostate | + + documented in this encounter Administered Medications + +--------+ +------+------+------+ | Medication Order | MAR | Action | Dose | Rate | Site | | | Action | Date | | | | + +--------+ +------+------+------+ | ALPRAZolam (XANAX) tablet 1 mg | Given | 04/01/20 | 1 mg | | | | 1 mg, Oral, 2 TIMES DAILY, First | | 17 9:15 | | | | | dose on Sun03/30/17 at 1315, | | AM PDT | | | | | Post-op/Phase II | | | | | | + +--------+ +------+------+------+ +-------+ +------+---+---+ | Given | 03/31/20 | 1 mg | | | | | 17 9:28 | | | | | | PM PDT | | | | +-------+ +------+---+---+ | Given | 03/31/20 | 1 mg | | | | | 17 9:28 | | | | | | AM PDT | | | | +-------+ +------+---+---+ +---+---+ | | | +---+---+ + +-------+ +--------+---+---+ | celecoxib (CELEBREX) capsule | Given | 04/01/20 | 200 mg | | | | 200 mg 200 mg, Oral, 2 TIMES | | 17 9:16 | | | | | DAILY, First dose on Sun03/31/17 | | AM PDT | | | | | at 1200, For 6 doses, If urine | | | | | | | output is less than 240ml/8 hours | | | | | | | (30ml/hr) or if signs of | | | | | | | bleeding, contact MD and hold., | | | | | | | Post-op/Phase II | | | | | | + +-------+ +--------+---+---+ +-------+ +--------+---+---+ | Given | 03/31/20 | 200 mg | | | | | 17 9:28 | | | | | | PM PDT | | | | +-------+ +--------+---+---+ | Given | 03/31/20 | 200 mg | | | | | 17 2:53 | | | | | | PM PDT | | | | +-------+ +--------+---+---+ +---+---+ | | | +---+---+ + +-------+ +------+---+---+ | clonazePAM (klonoPIN) tablet 1 | Given | 03/31/20 | 1 mg | | | | mg 1 mg, Oral, NIGHTLY, First | | 17 9:28 | | | | | dose on Sun03/30/17 at 2100, | | PM PDT | | | | | Reproductive Risk: Use | | | | | | | appropriate handling | | | | | | | precautions., Post-op/Phase II | | | | | | + +-------+ +------+---+---+ +-------+ +------+---+---+ | Given | 03/30/20 | 1 mg | | | | | 17 8:30 | | | | | | PM PDT | | | | +-------+ +------+---+---+ +---+---+ | | | +---+---+ + +-------+ +-------+---+---+ | famotidine (PEPCID) tablet 20 | Given | 03/30/20 | 20 mg | | | | mg 20 mg, Oral, 2 TIMES DAILY | | 17 8:34 | | | | | PRN, Heartburn, Starting Fri | | PM PDT | | | | | 03/30/17 at 1254, Post-op/Phase II | | | | | | + +-------+ +-------+---+---+ +---+---+ | | | +---+---+ + +-------+ +--------+---+---+ | fentaNYL (PF) injection 25-50 | Given | 03/30/20 | 25 mcg | | | | mcg 25-50 mcg, Intravenous, | | 17 12:09 | | | | | EVERY 5 MIN PRN, Pain, Starting | | PM PDT | | | | | 03/30/17 at 1055, Maximum | | | | | | | total dose 250 mcg. PACU IV | | | | | | | Narcotic Priority: Only use | | | | | | | fentanyl for immediate post-op | | | | | | | pain (one dose) or breakthrough | | | | | | | pain when any other IV narcotics | | | | | | | ordered have been ineffective (if | | | | | | | ordered). If both morphine and | | | | | | | hydromorphone are ordered, use | | | | | | | morphine first, and use | | | | | | | hydromorphone if morphine | | | | | | | ineffective., Recovery/Phase I | | | | | | + +-------+ +--------+---+---+ +-------+ +--------+---+---+ | Given | 03/30/20 | 25 mcg | | | | | 17 11:57 | | | | | | AM PDT | | | | +-------+ +--------+---+---+ | Given | 03/30/20 | 25 mcg | | | | | 17 11:52 | | | | | | AM PDT | | | | +-------+ +--------+---+---+ +---+---+ | | | +---+---+ + +-------+ +--------+---+---+ | gabapentin (NEURONTIN) capsule | Given | 04/01/20 | 200 mg | | | | 200 mg 200 mg, Oral, 3 TIMES | | 17 9:16 | | | | | DAILY, First dose on Sun03/30/17 | | AM PDT | | | | | at 1400, For 3 days, Hold for | | | | | | | over-sedation, dizziness or | | | | | | | visual disturbance and contact | | | | | | | MD., Post-op/Phase II | | | | | | + +-------+ +--------+---+---+ +-------+ +--------+---+---+ | Given | 03/31/20 | 200 mg | | | | | 17 9:28 | | | | | | PM PDT | | | | +-------+ +--------+---+---+ | Given | 03/31/20 | 200 mg | | | | | 17 2:53 | | | | | | PM PDT | | | | +-------+ +--------+---+---+ +---+---+ | | | +---+---+ + +-------+ + +---+---+ | HYDROcodone-acetaminophen | Given | 04/01/20 | 1 tablet | | | | (NORCO) 5-325 mg per tablet 1 | | 17 10:59 | | | | | tablet 1 tablet, Oral, EVERY 4 | | AM PDT | | | | | HOURS PRN, Pain, Starting Fri | | | | | | | 03/30/17 at 1756 | | | | | | + +-------+ + +---+---+ +-------+ + +---+---+ | Given | 04/01/20 | 1 tablet | | | | | 17 5:29 | | | | | | AM PDT | | | | +-------+ + +---+---+ | Given | 03/31/20 | 1 tablet | | | | | 17 6:48 | | | | | | PM PDT | | | | +-------+ + +---+---+ +---+---+ | | | +---+---+ + +-------+ +--------+---+---+ | HYDROmorphone (DILAUDID) | Given | 03/30/20 | 0.2 mg | | | | injection 0.25-0.5 mg 0.25-0.5 | | 17 12:29 | | | | | mg, Intravenous, EVERY 5 MIN PRN, | | PM PDT | | | | | Pain, Starting Sun03/30/17 at | | | | | | | 1055, Maximum total dose 2 mg. | | | | | | | PACU IV Narcotic Priority: Only | | | | | | | use fentanyl for immediate | | | | | | | post-op pain (one dose) or | | | | | | | breakthrough pain when any other | | | | | | | IV narcotics ordered have been | | | | | | | ineffective (if ordered). If | | | | | | | both morphine and hydromorphone | | | | | | | are ordered, use morphine first, | | | | | | | and use hydromorphone if morphine | | | | | | | ineffective., Recovery/Phase I | | | | | | + +-------+ +--------+---+---+ +-------+ +--------+---+---+ | Given | 03/30/20 | 0.4 mg | | | | | 17 12:26 | | | | | | PM PDT | | | | +-------+ +--------+---+---+ | Given | 03/30/20 | 0.4 mg | | | | | 17 12:14 | | | | | | PM PDT | | | | +-------+ +--------+---+---+ +---+---+ | | | +---+---+ + +-------+ +-------+---+---+ | ketorolac (TORADOL) injection | Given | 03/31/20 | 30 mg | | | | 30 mg 30 mg, Intravenous, EVERY | | 17 5:14 | | | | | 6 HOURS (4 times per day), First | | AM PDT | | | | | dose on Sun03/30/17 at 1215, For | | | | | | | 4 doses, If urine output is less | | | | | | | than 240ml/8 hours (30ml/hr) or | | | | | | | if signs of bleeding, contact MD | | | | | | | and hold., Post-op/Phase II | | | | | | + +-------+ +-------+---+---+ +-------+ +-------+---+---+ | Given | 03/30/20 | 30 mg | | | | | 17 11:17 | | | | | | PM PDT | | | | +-------+ +-------+---+---+ | Given | 03/30/20 | 30 mg | | | | | 17 5:27 | | | | | | PM PDT | | | | +-------+ +-------+---+---+ +---+---+ | | | +---+---+ + +---------+ +---+-------+---+ | lactated ringers (LR) infusion | New Bag | 03/30/20 | | 100 | | | at 100 mL/hr, Intravenous, | | 17 11:26 | | mL/hr | | | CONTINUOUS, Starting 03/30/17 | | AM PDT | | | [...] +---+-------+---+ +---+---+ | | | +---+---+ + + + +---+ +---+ | lactated ringers (LR) infusion | Rate/Dos | 03/30/20 | | 75 mL/hr | | | at 125 mL/hr, Intravenous, | e Change | 17 10:06 | | | | | CONTINUOUS, Starting 03/30/17 | | PM PDT | | | | | at 1315, Post-op/Phase II | | | | | | + + + +---+ +---+ + + +---+-------+---+ | New Bag | 03/30/20 | | 125 | | | | 17 8:47 | | mL/hr | | | | PM PDT | | | | + + +---+-------+---+ | Rate/Dose Change | 03/30/20 | | 125 | | | | 17 6:31 | | mL/hr | | | | PM PDT | | | | + + +---+-------+---+ +---+---+ | | | +---+---+ + +-------+ +------+---+---+ | polyethylene glycol (MIRALAX) | Given | 03/31/20 | 17 g | | | | powder 17 g 17 g, Oral, DAILY, | | 17 9:27 | | | | | First dose on Sun03/30/17 at | | AM PDT | | | | | 1815, Mix with 8 oz. water., | | | | | | + +-------+ +------+---+---+ +-------+ +------+---+---+ | Given | 03/30/20 | 17 g | | | | | 17 6:37 | | | | | | PM PDT | | | | +-------+ +------+---+---+ +---+---+ | | | +---+---+ + +-------+ +------+---+---+ | tiZANidine (ZANAFLEX) tablet 4 | Given | 03/30/20 | 4 mg | | | | mg 4 mg, Oral, EVERY 8 HOURS | | 17 1:51 | | | | | PRN, Muscle spasms, Starting Fri | | PM PDT | | | | | 03/30/17 at 1254, Post-op/Phase II | | | | | | + +-------+ +------+---+---+ +---+---+ | | | +---+---+ + +-------+ +--------+---+---+ | traZODone (DESYREL) tablet 100 | Given | 03/31/20 | 100 mg | | | | mg 100 mg, Oral, NIGHTLY, First | | 17 9:28 | | | | | dose on Sun03/30/17 at 2100, | | PM PDT | | | | | Post-op/Phase II | | | | | | + +-------+ +--------+---+---+ +-------+ +--------+---+---+ | Given | 03/30/20 | 100 mg | | | | | 17 8:30 | | | | | | PM PDT | | | | +-------+ +--------+---+---+ +---+---+ | | | +---+---+ documented in this encounter
--- OUTSIDE RECORDS SUMMARY | ~2020-05-08 | XMS | Encounter Summary ---
Demographics + + + | Address | [address] | | | [place] [address] | + + + | Home Phone [...] Author + + + | Author | [facility] | | | and [place] | + + + | Organization | [facility] | | [...] Team Providers + +------+ + | Care Foot And Ankle Surgeon Name | Role | Phone | + +------+ + | Pranav Auguste MD | PCP | | + +------+ + Reason for Visit + +--------+ + | Reason | Onset | Comments | | | Date | | + +--------+ + | Colonoscopy | 07/08/ | | | | 2017 | | + +--------+ + | Results | 07/08/ | CT | | | 2017 | | + +--------+ + Encounter Details +--------+ + + + + | Date | Type | Department | Care Team | Description | +--------+ + + + + | 07/08/ | Telephone | [facility] | Chencho Barrera MD | Colonoscopy; Results | | 2018 | | GASTROENTEROLOGY | [address] [facility] | (CT) | | | | [address] [facility] | [place], [place] | | | | | [address] [place], [place] | [address] | | | | | [address] | [phone] | | | | | [phone] | | | +--------+ + + + [...] Telephone Encounter - Brittany Rapp RN - 07/10/2018 9:37 AM PDTSpoke with patient and r eviewed CT results and he will follow up with PCP regarding adrenal nodule and aortic calcif ication and dilation; scheduled for colon prop on 07/[address] Barrera; reviewed med ications and allergies; reviewed instructions for 3 day extended prep due to constipation an d narcotic use. He will do 5-7 days low residue, full liquid day with magnesium citrate, and clear liquids with Golytely. He plans to continue daily Miralax and Benefiber until procedu re but states he's is having daily BM's. 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 elephone Encounter - Brittany Rapp RN - 07/10/2018 9:14 AM PDTLVM for retu rn call to go over CT results. 9: 15 AM PDTTelephone Encounter - Brittany Rapp RN - 07/10/2018 8:[address] Barrera: The CT results did not show metastatic spread of cancer or a new malignancy. I think that his abd pain is due to effects from prostate surgery and radiation. He does have an adrenal nodule small at 1.3 cm that needs f/u CT imaging through his PCM in 3-6 months. There is extensive vascular calcification plus aortic dilation to > 3 cm which needs to be watched by PCM as well. I rec repeat cscope with prop for further eval of abd pain. He will need 3 day prep with golyte and mg citrate x 2 due to constipation from narcotics. Thanks for calling him TTelephone Encounter - Ewa Marie - 07/08/2018 12:34 PM PDTPatient called to see jamshid kaufman the results of his CT scan were on 06/06. Please call him back at [phone]. Thank you. documented in this enc ounter Plan of Treatment +--------+ + + + + | Date | Type | Specialty | Care Team | Description | +--------+ + + + + | 02/02/ | Appointment | Radiation Oncology | Brynn Bahena | | | 2020 | | | MD Marcelo Hopper [facility] | | | | | | [place], [place] | | | | | | [phone] | | | | | | | | +--------+ + + + + documented as of this encounter Visit Diagnoses + + | Diagnosis | + + | Chronic abdominal pain - Primary Abdominal pain, unspecified site | + + | History of colonic polyps Personal history of colonic polyps | + + | Constipation, unspecified constipation type | + + | History of small bowel obstruction Personal history of other diseases of digestive | | system | + + | History of prostate cancer Personal history of malignant neoplasm of prostate | + + | Narcotic dependence (HCC) Unspecified drug dependence, unspecified | + + documented in this encounter"
--- OUTSIDE RECORDS SUMMARY | ~2020-05-08 | XMS | Encounter Summary ---
Demographics + + + | Address | [address] | | | [place] [address] | + + + | Home Phone | | + + + | Preferred Language | Unknown | + + + | Marital Status | Single | + + + | Sikhism Affiliation | Unknown | + + + | Race | White | + + + | Ethnic Group | Not or | + + + Author + + + | Author | [facility] | | | and [place] | + + + | Organization | [facility] | | | [...] Team Providers + +------+ + | Care Gatekeeper Name | Role | Phone | + +------+ + | Pranav Auguste MD | PCP | | + +------+ + Encounter Details +--------+---------+ + + + | Date | Type | Department | Care Team | Description | +--------+---------+ + + + | 07/31/ | Surgery | [facility] | Chencho Barrera MD | COLONOSCOPY | | 2018 | | MED CTR MP INTRA OP | [address] | | | | | [address] | [place] | | | | | [place] | [address] | | | | | [address] | [phone] | | | | | [phone] | | | +--------+---------+ + + + Social History + + [...] + + + | Blood Pressure | 125/109 | 07/31/2018 10:42 AM | | | | | PST | | + + + + + | Pulse | 84 | 07/31/2018 10:42 AM | | | | | PST | | + + + + + | Temperature | 36.8 C (98.2 F) | 07/31/2018 10:42 AM | | | | | PST | | + + + + + | Respiratory Rate | 16 | 07/31/2018 10:42 AM | | | | | PST | | + + + + + | Oxygen Saturation | 97% | 07/31/2018 10:42 AM | | | [...] + documented in this encounter Discharge Instructions Instructions Darlyn Garrett RN - 07/31/2018 Recovery After Procedural Sedation [...] You can't be awakened Date Last Reviewed: 07/04/201619999923-0726 [employer]. [address] [place] [address]. All righ ts reserved. This information is [...] mg by mouth | | 0 | //20 | | | hydrochloride | every 6 [...] Chencho Barrera MD at 07/31/2018 12:07 PM PSTChencho Barrera MD - 07/31/2018 1 2:06 PM PST [...] 01/25/2017 Procedure: US GUIDED BIOPSY - Location: [facility] COLONOSCOPY LYMPHADENECTOMY PRE-MALIGNANT / BENIGN SKIN LESION EXCISION Left Left groin PROSTATECTOMY N/A 03/30/2017 Procedure: Radical Prostatectomy; Surgeon: Kevin Martin MD; Location: [facility] MAIN OR HOME MEDS: Scheduled Meds: [...] Electronically Signed by: Chencho Barrera MD 07/31/2018 [facility] Portions of this chart may have been created with [employer] voice recognition software. Occasi onal wrong-word or sound-alike substitutions may have occurred due to the inherent araujo itations of voice recognition software. Please read the chart carefully and recognize, using context, where these substitutions have occurred documented in this encounter Miscellaneous Notes D-C Instructions Provation - Chencho Barrera MD - 07/31/2018 11:11 AM PSTDischarge Instruct ions for Colonoscopy Exams Patient: Pablito Hollins : 1955 Acct: [id number] Exam Date: Tuesday, July 31, 2018 Doctor: [...] If unable to reach your physician, call [facility] Emergency Department at [phone] Your doctor [...] [address]pper | | | | | | [place], [place] | | | | | | [...] 07/31/2018 | [employer]OVATION | | 11:11 AMMRN: [id number] #: [id number] of : | | | 1955dmit Type: AmbulatoryAge: 63Room: [facility] 01Gender: MaleNote | | | Status: FinalizedAttending MD: Chencho Barrera , [facility]: | | | ColonoscopyIndications: Abdominal painProviders: | | | Chencho Barrera MD, Ibrahima Lujan RN, Hansa | | | Adonis, Child Nutrition Director, Willie Newman MD (Anesthesia | | | [...] the | | | anesthesiologist and the telecom field technician in the pre-procedure area in the [...] | | | AMScope Out: 11:48:56 AM [facility], [address] | | [place] [address] | | | - Await pathology results. [...] |Scope Out: 11:48:56 AM | | | [facility], [address] [facility], [place], [place] | | | [address] | | + + ----+ + +---------+ + + | Performing | Address | City/State/[facility]ode | Phone Number | | Organization | [...] | | | Hyperplastic polyp (one fragment). JVR:[facility]:C2NR GROSS | | | DESCRIPTION: Two containers [...] entirely submitted in | | | (B1). am:AMB:[place] PERFORMING LABORATORY: The technical component | | | was performed by [employer], [address] [place] [address] | | | [id number] (Jacquard Loom Carpet Weaver: Rocio Noguera MD; IA# [id number]). | | | Professional interpretation was performed by [employer] [facility], | | | [facility], [address] | | | [place] [address] (Jacquard Loom Carpet Weaver: Fred Warner M.D.). | | | Diagnostician: [...] filedocumented in this encounter Administered Medications + +--------+---------+------+------+------+ [...] Shortness of Breath, | | | Starting Sun07/31/18 at 1203, | | | For 1 [...] glucose < 50, | | | Starting Sun07/31/18 at 1047, | | | Repeat in [...]
--- OUTSIDE RECORDS SUMMARY | ~2020-05-08 | XMS | Encounter Summary ---
Demographics + + + | Address | [address] | | | [place] [address] | + + + | Home Phone | | + + + | Preferred Language | Unknown | + + + | Marital Status | Single | + + + | Judaism Affiliation | Unknown | + + + [...] Team Providers + +------+ + | Care Impregnator Electrolytic Capacitors Name | Role | Phone | + +------+ + | Pranav Auguste MD | PCP | | + +------+ + Encounter Details +--------+ + + + + | Date | Type | Department | Care Team | Description | +--------+ + + + + | 07/31/ | Anesthesia | [facility] | Willie Newman | | | 2018 | Event | MED CTR MP INTRA OP | DO Marcelo Paiz [address] | | | | | [address] | [address] [place] | | | | | [place], [place] | [place] [address] | | | | | [address] | [phone] | | | | | [phone] | | | +--------+ + + + + Anesthesia Record + + + + + | Procedure Name | Responsible | Anesthesia Start | Anesthesia Stop Time | | | Anesthesiologist | Time | | + + + + + | COLONOSCOPY (N/A | Willie Newman, | 07/31/18 1114 | 07/31/18 1156 | | Rectum) | DO | | | + + + + + +----+---+ + + | Da | T | Event | Comment | | te | i | | | | | m | | | | | e | | | +----+---+ + + | 11 | 1 | An Checkout | Pre-use anesthesia machine/equipment checkout. | | /1 | 1 | | | | 4/ | 0 | | | | 20 | 3 | | | | 18 | | | | +----+---+ + + | | 1 | | | | | 1 | | | | | 1 | | | | | 2 | | | +----+---+ + + | | 1 | An Start | Reassessment prior to anesthesia induction/procedure. | | | 1 | | | | | 1 | | | | | 4 | | | +----+---+ + + | | 1 | First | | | | 1 | Inc/Proc St | | | | 1 | | | | | 7 | | | +----+---+ + + | | 1 | Pre-Procedu | | | | 1 | ral Timeout | | | | 1 | Completed | | | | 7 | | | +----+---+ + + | | 1 | Breathing | | | | 1 | Spontaneous | | | | 1 | ly | | | | 7 | | | +----+---+ + + | | 1 | an stop | | | | 1 | data | | | | 5 | | | | | 2 | | | +----+---+ + + | | 1 | An Stop | Patient handed off to recovery nurse. | | | 5 | | | | | 6 | | | +----+---+ + + +------+ | Meds | +------+ + + + | Name | Total | + + + | propofol (DIPRIVAN) injection | 60 mg | | (bolus) (20 mL) | | + + + | propofol (DIPRIVAN) injection | 537.77 mg | | (bolus) (20 mL) | | + + + | lidocaine 2% | 100 mg | + + + | lactated ringers (LR) infusion | 600 mL | + + + + + | No agents on file. | + + + + | No blood administrations on file. | + + +--------+ + + + | Type | Details | Placement | Removal | +--------+ + + + | Periph | 03/30/17; 0658; Left; Forearm; | 03/30/17 0658 by | 07/31/18 1045 by | | nicol | [id number] catheter system; | Cookie Silva RN | [...] + + + | Read | 03/30/17; 902; abdomen; | 03/30/17902 by | 07/31/18 1045 by | | only - | 07/31/18; 1045 | Susana Simpson RN | Zakia Landry, | | | | | RN | | Incisi | | | | | on | | | | +--------+ + + + | Periph | 07/31/18; 1044; Right; Hand; | 07/31/18 1044 by | 07/31/18 1215 by | | eral | [id number] catheter system; | Zakia Landry, | Darlyn Garrett RN | | IV | 20 gauge, 1 1/4 in length; | RN | | | | distraction, intradermal | | | | | injection; no longer indicated, | | | | | removed per policy/procedure, | | | | | catheter/device intact; healing | | | | | within expectations; 07/31/18; | | | | | 1215 | | | +--------+ + + + [...] encounter OR Notes Anesthesia Postprocedure Evaluation - iWllie Newman DO - 07/31/2018 2:01 PM PSTFor matting of this note might be different from the original. ANESTHESIA POSTANESTHESIA EVALUATION Pablito Hollins 63 y.o. male 1955 [id number] Procedure(s) COLONOSCOPY (N/A Rectum) Cooperates? Yes Mental Status Performs simple tasks. Respiratory Satisfactory - Airway patent (self maintained). Cardiovascular Satisfactory - Blood pressure and heart rate acceptable Temperature Satisfactory Pain Satisfactory N/V Control Satisfactory Hydration Satisfactory - No signs of dehydration Complications None apparent Vitals: 07/31/18 1154 07/31/18 1200 07/31/18 1215 BP: 108/59 108/59 118/66 Pulse: 85 74 73 Temp: 36.9 C (98.4 F) Resp: 12 SpO2: 95% 95% 98% Electronically signed by Willie Newman DO 07/31/2018 14:01 [facility] nesthesia Preprocedure Evaluation - Willie Newman DO - 07/18 11:40 AM PST ANESTHESIA PREANESTHESIA EVALUATION Pablito Hollins 63 y.o. male 1955 [id number] Procedure(s): COLONOSCOPY (N/A Rectum) Medical history, anesthesia, medications, allergy, NPO status verified histories reviewed. ECG reviewed. Labs reviewed. Review of Systems / Med History Anesthesia History (-) PONV, difficult intubation, malignant hyperthermia Cardiovascular 02/2017 echo: Moderate , mean gradient 28mmHg EF 60-65 Normal right heart. (-) CAD, angina (+) Valvular disease: , Exercise tolerance >4 METS Pulmonary (+) smoking history(-) asthma, COPD(-) sleep apnea: Neurology (+) back pain Psychology (+) anxiety Renal No results found for: CREA, BUN, NA, K, CL, CO2 . (-) end-stage renal disease Gastrointestinal/Hepatic (+) hyperlipidemia (-) reflux/GERD. Endocrine (-) Diabetes. Other No results found for: WBC, HGB, HCT, MCV, LABPLAT, PLT . Cancer (+) prostate cancer Physical Exam Airway MP II, TM >3 FB, Mouth opening >2 FB. Neck: full ROM, extends >30 degrees. Jaw protrus ion normal. Dental ; Patient denies loose, chipped or missing teeth (+) dentures-lower and dentures-upper. CV Rhythm regular. Rate normal. (-) murmur. Pulm Clear to auscultation bilaterally. Neuro Grossly normal. Anesthesia Plan ASA 3 (Moderate , smoker) Type: General and TIVA. Induction: Intravenous. Potential problems: None anticipated. Monitors: Standard ASA monitors. Consent statement:Anesthetic plan, alternatives, risks and benefits discussed with patient. Risks discussed included (but were not limited to): nausea, perioperative CV events, respir atory events, dental injury, . Consenting person understands and agrees to proceed. PARQ. Electronically Signed by: Willie Newman DO ESig date/time: 07/30/2018 11:40 documented in th is encounter Plan of Treatment +--------+ + + + + | Date | Type | Specialty | Care Team | Description | +--------+ + + + + | 02/02/ | Appointment | Radiation Oncology | Brynn Bahena | | | 2020 | | | MD [address] | | | | | | [place], [place] | | | | | | [phone] | | | | | | | | +--------+ + + + + documented as of this encounter Visit Diagnoses Not on filedocumented in this encounter Administered Medications + +---------+ +------+------+------+ | Medication Order | MAR | Action | Dose | Rate | Site | | | Action | Date | | | | + +---------+ +------+------+------+ | lactated ringers (LR) infusion | New Bag | 07/31/20 | | | | | at 100 mL/hr, Intravenous, | | 18 10:22 | | | | | CONTINUOUS, Starting Sun07/31/18 | | AM PST | | | | | at 1115, Pre-op | | | | | | + +---------+ +------+------+------+ +---+---+ | | | +---+---+ + +-------+ +--------+---+---+ | lidocaine (PF) 2% injection | Given | 07/31/20 | 100 mg | | | | Intravenous, PRN, Starting Wed | | 18 11:16 | | | | | 07/31/18 at 1116, Anesthesia | | AM PST | | | | | Intra-op | | | | | | + +-------+ +--------+---+---+ +---+---+ | | | +---+---+ + + + + +-------+---+ | propofol (DIPRIVAN) injection | Rate/Dos | 07/31/20 | 120 | 62.9 | | | CONTINUOUS PRN, Starting Wed | e Change | 18 11:45 | mcg/kg/m | mL/hr | | | 07/31/18 at 1115, Anesthesia | | AM PST | in | | | | Intra-op | | | | | | + + + + +-------+---+ + + + +--------+---+ | Rate/Dose Change | 07/31/20 | 160 | 83.8 | | | | 18 11:40 | mcg/kg/m | mL/hr | | | | AM PST | in | | | + + + +--------+---+ | New Bag | 11/14/20 | 200 | 104.8 | | | | 18 11:15 | mcg/kg/m | mL/hr | | | | AM PST | in | | | + + + +--------+---+ +---+---+ | | | +---+---+ + +-------+ +-------+---+---+ | propofol (DIPRIVAN) injection | Given | 07/31/20 | 60 mg | | | | PRN, Starting 07/31/18 at | | 18 11:17 | | | | | 1117, Anesthesia Intra-op | | AM PST | | | | + +-------+ +-------+---+---+ +---+---+ | | | +---+---+ documented in this encounter"
--- OUTSIDE RECORDS SUMMARY | ~2020-05-08 | XMS | Encounter Summary ---
Demographics + + + | Address | [address] | | | [place] [address] | + + + | Home Phone [...] Author + + + | Author | [facility] | | | and [place] | + + + | Organization | [facility] | | | [...] Team Providers + +------+ + | Care Rod And Tube Straightener Name | Role | Phone | + +------+ + | Pranav Auguste MD | PCP | | + +------+ + Encounter Details +--------+ + + + + | Date | Type | Department | Care Team | Description | +--------+ + + + + | 04/24/ | Abstract | [facility] [place] | Provider, | | | 2017 | | GASTROENTEROLOGY | MD Florecita 2021 | | | | | [address] | [place] | | | | | [address] [place] | [place] [address] | | | | | [address] | | | | | [phone] | | | +--------+ + + + [...] [place] | | | | | | [phone] | | | | | | | | +--------+ + + + + documented as of this encounter Visit Diagnoses Not on filedocumented in this encounter"
--- OUTSIDE RECORDS SUMMARY | ~2020-05-08 | XMS | Encounter Summary ---
Demographics + + + | Address | [address] | | | [place] [address] | + + + | Home Phone | | + + + | Preferred Language | Unknown | + + + | Marital Status | Single | + + + | Methodist Affiliation | Unknown | + + + | Race | White | + + + | Ethnic Group | Not or | + + + Author + + + | Author | [facility] | | | and [place] | + + + | Organization | [facility] | | | [...] Team Providers + +------+ + | Care Dairy Hand Name | Role | Phone | + +------+ + | Pranav Auguste MD | PCP | | + +------+ + Encounter Details +--------+ + + + + | Date | Type | Department | Care Team | Description | +--------+ + + + + | 04/15/ | Orders Only | [facility] | Honorio Johnson DO | | | 2019 | | MED CTR RAD[facility] | [address] | | | | | [facility] [address] | [place] | | | | | [address] | [id number] | | | | | [place] [address] | | | | | | [phone] | | | +--------+ + + + [...] [address] | | | | | | [place] | | | | | | [phone] | | | | | | | | +--------+ + + + + documented as of this encounter Visit Diagnoses Not on filedocumented in this encounter"
--- OUTSIDE RECORDS SUMMARY | ~2020-05-08 | XMS | Encounter Summary ---
Demographics + + + | Address | [address] | | | [place] [address] | + + + | Home Phone | | + + + | Preferred Language | Unknown | + + + | Marital Status | Single | + + + | Druze Affiliation | Unknown | + + + [...] Team Providers + +------+ + | Care Process Control Tech Name | Role | Phone | + +------+ + | Pranav Auguste MD | PCP | | + +------+ + Reason for Referral Diagnostic/Screening (Routine) +--------+--------+ + + + + | Status | Reason | Specialty | Diagnoses / | Referred By | Referred To | | | | | Procedures | Contact | Contact | +--------+--------+ + + + + | Closed | | Radiology | Diagnoses | Holly | [address] | | | | | Generalized | MD Chencho | [place] | | | | | abdominal | [address] | [place], | | | | | pain | [address] | [place] [address] | | | | | Constipation | [place], [place] | Phone: | | | | | , | [address] | [phone] | | | | | unspecified | Phone: | Fax: | | | | | constipation | [phone] | [phone] | | | | | type | Fax: | | | | | | History of | [phone] | | | | | | prostate | | | | | | | cancer | | | | | | | History of | | | | | | | small bowel | | | | | | | obstruction | | | | | | | Procedures | | | | | | | CT Abdomen | | | | | | | Pelvis w | | | | | | | Contrast | | | | | | | CHG CT | | | | | | | SCAN,ABDOMEN | | | | | | | T AND | | | | | | | PELVIS,W | | | | | | | CONTRAST | | | +--------+--------+ + + + + Reason for Visit + + + | Reason | Comments | + + + | Abdominal Pain | | + + + Evaluate & Treat (Routine) +--------+ + + + + + | Status | Reason | Specialty | Diagnoses / | Referred By | Referred To | | | | | Procedures | Contact | Contact | +--------+ + + + + + | Closed | Specialty | Gastroenterol | Diagnoses | Shruti, | Mariann, | | | Services | ogy | Generalized | Brynn Hopper, | Pablito Yeung MD | | | Required | | abdominal | [address], | | | | | pain | [address] | [address] | | | | | | [place], | [place], | | | | | | [place] [address] | [place] [address] | | | | | | Phone: | Phone: | | | | | | [phone] | [phone] | | | | | | Fax: | Fax: | | | | | | [phone] | [phone] | +--------+ + + + + + Encounter Details +--------+---------+ + + + | Date | Type | Department | Care Team | Description | +--------+---------+ + + + | 05/22/ | Office | [facility] | Brynn Bahena | Generalized | | 2018 | Visit | GASTROENTEROLOGY | MD Ruchi [address] | abdominal pain | | | | [address] | [place], [place] | (Primary Dx); | | | | [address] [place], [place] | [address] | Constipation, | | | | [address] | | unspecified | | | | [phone] | Chencho Barrera MD | constipation type; | | | | | [address] | History of prostate | | | | | [place] | cancer; History of | | | | | [address] | small bowel | | | | | [phone] | obstruction | | | | | | | +--------+---------+ + + + [...] + + + | Blood Pressure | 118/62 | 05/22/2018 8:31 AM | | | | | PDT | | + + + + + | Pulse | 91 | 05/22/2018 8:31 AM | | | | | PDT | | + + + + + | Temperature | 36.6 C (97.9 F) | 05/22/2018 8:31 AM | | | | | PDT | | + + + + + | Respiratory Rate | 14 | 05/22/2018 8:31 AM | | | | | PDT | | + + + + + | Oxygen Saturation | 93% | 05/22/2018 8:31 AM | | | | | PDT | | + + + + + | Inhaled Oxygen | - | - | | | Concentration | | | | + + + + + | Weight | 87.4 kg (192 lb 10.9 | 05/22/2018 8:31 AM | | | | oz) | PDT | | + + + + + | Height | 188 cm (6' 2") | 05/22/2018 8:31 AM | | | | | PDT | | + + + + + | Body Mass Index | 24.74 | 05/22/2018 8:31 AM | | | | | PDT | | + + + + + documented in this encounter Progress Brittany Sparks RN - 05/22/2018 9:00 AM PDTUS and last colon received from [place], a nd CT done in Oct 2017 showing small bowel obstruction; CT abdomen/pelvis with PO and IV con trast ordered per Dr. Barrera request and will call patient once approved to schedule. Electro nically signed by Brittany Rapp RN at 05/23/2018 8:25 AM PDTdocumented in this encounter H&P Notes Chencho Barrera MD - 05/22/2018 9:00 AM PDT Date of Office Visit: 05/22/18 Chief Complaint: Abdominal Pain History of Present Illness: Pablito Hollins is a 62 y.o. male who is referred by Dr. Mellissa Hawk for evaluation of abdominal pain. The patient complains of generalized abdominal pain however more severe in the lower abdome n both in the right lower quadrant and left lower quadrant. The patient states that the kathy n can occur at any time and is not exacerbated by anything in particular. At times it may i mprove with defecation however sometimes will not improve the pain. He states that the pain started immediately after having prostate surgery and March 2017. He has undergone workup i ncluding ultrasound and CT scan. Results of the CT scan are not available at this time duran aakash ultrasound did reveal abdominal aortic aneurysm measuring 3 cm. The patient had a colon oscopy in 2013 which revealed a small polyp with pathology revealing hyperplastic changes. The patient denies weight loss and also denies nausea and vomiting. He was seen in the [facility] department due to abdominal distention and was admitted for small bowel obstruction in March 2017. After 3 days the obstruction resolved and the patient was discharged. He was e valuated by surgery however they felt that he required no surgical intervention at that time . The patient has been taking both tramadol as well as oxycodone for abdominal pain and fee ls that his constipation may be due to the narcotic medications. Past Medical History: Past Medical History: Diagnosis Date Chronic back pain Depression with anxiety Erectile dysfunction Full dentures Heart murmur Hyperlipidemia Lumbar disc disease Microhematuria Nodular prostate with urinary obstruction Prostate cancer (HCC) Slowing of urinary stream Past Surgical History: Past Surgical History: Procedure Laterality Date BIOPSY 01/25/2017 Procedure: US GUIDED BIOPSY - Location: [facility] EXTERNAL IMAGING COLONOSCOPY INGUINAL HERNIA REPAIR LYMPHADENECTOMY PRE-MALIGNANT / BENIGN SKIN LESION EXCISION Left Left groin PROSTATECTOMY N/A 03/30/2017 Procedure: Radical Prostatectomy; Surgeon: Kevin Martin MD; Location: [facility] MAIN OR Family History: Family History Problem Relation Age of Onset Cancer Mother breast, brain Lymphoma Mother Hodgkin's Brain cancer Brother Lymphoma Brother Allergies: Allergies No active allergies Intolerance Allergen Reactions Codeine Nausea Only Medications: has a current medication list which includes the following prescription(s): alprazolam, mohamud rvastatin, fish oil, hydroxyzine hydrochloride, loratadine, multiple vitamin, oxycodone-acet aminophen, polyethylene glycol, tizanidine, tramadol, and trazodone. Review of Systems: A 10-point review of systems was performed and was negative except as n oted in the history of present illness. Physical Exam: Vitals:BP 118/62 | Pulse 91 | Temp 36.6 C (97.9 F) (Temporal) | Resp 14 | Ht 1.88 m (6' 2") | Wt 87.4 kg (192 lb 10.9 oz) | SpO2 93% | BMI 24.74 kg/m General: This is a well-developed,well-nurished male in no apparent distress, alert and brant ented times 3. HEENT: Reveals normocephalic, atraumatic with extraocular muscles intact. Oropharynx is toyin ar without obstruction. Neck: Supple without lymphadenopathy or thyromegaly. Lungs: Clear to auscultation without rales or wheezes. Cardiac: Reveals regular rate and rhythm with normal S1 and S2 and no murmurs, rubs or gall ops. Abdomen: Soft and nontender without masses or organmegaly. Mild discomfort in the right l ower quadrant and left lower quadrant without rebound. Bowel sounds are normal. Extremities: Without cyanosis, clubbing or edema. Neuro: Awake, alert, oriented x3. Normal station and gait. Skin: Warm and dry, no erythematous rash. No results found for: NA, K, CL, CO2, ANIONGAP, GLU, BUN, CREA, GFRNONAA, CALCIUM, ALBUMIN, BILITOT, TOTALPROTEIN, AST, ALT, ALKPHOS, WBC, HGB, HCT, MCV, LABPLAT, PLT, ESR, CRP, LIPAS E, AMYLASE, PT, INR No results found for this or any previous visit. No results found for: LACTOQL, CAMPY, CULTURE, SHIGATOXINI, SHIGATOXINII, GIARDIAAG, CRSPAG , CDIFFICILEGD, CDIFF, LABOVA Last CT abd - No results found for this or any previous visit. Last MRI abd - No results found for this or any previous visit. Last US abd - No results found for this or any previous visit. Assessment and Plan: 62-year-old male with chronic abdominal pain located in the lower abdo men which started after treatment for prostate cancer which included almost 50 radiation fritz atments. The patient also complains of chronic constipation and takes multiple narcotic med ications at this time. Due to his history of malignancy I recommend that repeat CT scan of the pelvis and abdomen be performed at this time with IV and by mouth contrast. If CT scan is unremarkable then will consider repeating colonoscopy. His last colonoscopy in 2013 revealed a small polyp. I recommend that he restart MiraLAX once or twice daily as well as Benefiber twice a day in addition to decreasing his narcotic pain medications especially oxycodone.Electronically si gned by Chencho Barrera MD at 05/22/2018 9:40 AM PDTdocumented in this encounter Plan of Treatment +--------+ [...] [place] | | | | | | [id number] | | | | | | | | +--------+ + + + + documented as of this encounter Procedures + +--------+ + + + | Procedure Name | Priori | Date/Time | Associated Diagnosis | Comments | | | ty | | | | + +--------+ + + + | IMAGING REPORT - | | 11/08/2017 | | Results for this | | EXTERNAL SCAN | | 12:00 AM | | procedure are in the | | | | PST | | results section. | + +--------+ + + + | DIAGNOSTIC REPORT - | | 10/02/2013 | | Results for this | | EXTERNAL SCAN | | 12:00 AM | | procedure are in the | | | | PST | | results section. | + +--------+ + + + | PATHOLOGY - EXTERNAL | | 10/01/2013 | | Results for this | | SCAN | | 12:00 AM | | procedure are in the | | | | PST | | results section. | + +--------+ + + + documented in this encounter Results CT Abdomen Pelvis w Contrast (06/06/2018 10:36 AM PDT) + + | Specimen | + + | | + + + + + | Narrative | Performed At | + + + | ENHANCED CT ABDOMEN AND PELVIS 06/06/2018 10:36 AM CLINICAL | [facility] | | HISTORY: abdominal pain and constipation, history prostate cancer | | | COMPARISON: Radiation therapy planning CT June 2017 | | | TECHNIQUE: Axial images are performed through the abdomen and pelvis | | | following the uneventful intravenous administration of 85 mL | | | Omnipaque 350 contrast. Coronal and sagittal reformations | | | are also performed. ABDOMEN FINDINGS: Imaged lung bases are | | | unremarkable. Localized right-sided pericardial calcification is | | | suggested. Imaged mediastinum is otherwise unremarkable. The | | | liver, gallbladder, spleen, pancreas, and right adrenal gland are | | | unremarkable. A 1.3 cm nodule is present in the left adrenal gland | | | and is difficult to further characterize. Few small rounded | | | hypodensities in the kidneys favor cysts and measure up to 10 mm | | | superiorly on the left. No nephroureterolithiasis or | | | hydroureteronephrosis is evident. Gas and dependent fluid favoring | | | oral contrast are present within the nondilated right colon, along | | | with nondilated small bowel throughout the abdomen. Gas and a small | | | volume of stool are present in the nondilated left colon and rectum. | | | The appendix is surgically absent. The stomach is unremarkable. | | | No free air, ascites, pathologic lymph node enlargement or hernia | | | is evident. There is extensive aortoiliac calcification with mild | | | aneurysmal dilation of the distal aorta to a diameter of 3.4 cm. | | | Abdominal vasculature is otherwise unremarkable. There is leftward | | | lumbar curvature with multilevel degenerative disc disease, | | | spondylosis and variable stenosis. PELVIS FINDINGS: The prostate | | | appears to be absent. The bladder is mostly decompressed and | | | otherwise grossly unremarkable. No free air, free fluid, pathologic | | | lymph node enlargement, or hernia is evident. There is a stable | | | tiny sclerotic focus in the right pubis, favoring a bone island. | | | Bones and soft tissues are otherwise unremarkable. IMPRESSION - | | | 1. NO CONCLUSIVE EVIDENCE OF METASTATIC DISEASE IN THE ABDOMEN | | | OR PELVIS. 2. NO EVIDENCE OF BOWEL OBSTRUCTION OR VISIBLE | | | INFLAMMATION. 3. 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 4. INDETERMINATE 1.3 CM | | | LEFT ADRENAL NODULE. CONSIDER FOLLOW-UP UNENHANCED AND ENHANCED | | | ADRENAL CT IF FURTHER CHARACTERIZATION IS DESIRED. Dictated and | | | Signed by: Ramsey Jones MD Electronically signed: 06/06/2018 12:53 | | | PM | | + + + + + | Procedure Note | + + | Anastacio, Rad Results In - 06/06/2018 12:56 PM PDT [address] CT ABDOMEN AND PELVIS | | 06/06/2018 10:36 AM CLINICAL HISTORY: abdominal pain and constipation, history prostate | | cancer COMPARISON: Radiation therapy planning CT June 2017 TECHNIQUE: Axial | | images are performed through the abdomen and pelvis followingthe uneventful intravenous | | administration of 85 mL Omnipaque 350 contrast. Coronal and sagittal reformations | | are also performed. ABDOMEN FINDINGS: Imaged lung bases are unremarkable. Localized | | right-sidedpericardial calcification is suggested. Imaged mediastinum is | | otherwiseunremarkable. The liver, gallbladder, spleen, pancreas, and right adrenal | | glandare unremarkable. A 1.3 cm nodule is present in the left adrenal gland and | | isdifficult to further characterize. Few small rounded hypodensities in thekidneys | | favor cysts and measure up to 10 mm superiorly on the left. Nonephroureterolithiasis or | | hydroureteronephrosis is evident. Gas and dependentfluid favoring oral contrast are | | present within the nondilated right colon,along with nondilated small bowel throughout | | the abdomen. Gas and a smallvolume of stool are present in the nondilated left colon | | and rectum. Theappendix is surgically absent. The stomach is unremarkable. No free | | air,ascites, pathologic lymph node enlargement or hernia is evident. There isextensive | | aortoiliac calcification with mild aneurysmal dilation of the distalaorta to a diameter | | of 3.4 cm. Abdominal vasculature is otherwise unremarkable. There is leftward lumbar | | curvature with multilevel degenerative disc disease,spondylosis and variable stenosis. | | PELVIS FINDINGS: The prostate appears to be absent. The bladder is mostlydecompressed | | and otherwise grossly unremarkable. No free air, free fluid,pathologic lymph node | | enlargement, or hernia is evident. There is a stable tinysclerotic focus in the right | | pubis, favoring a bone island. Bones and softtissues are otherwise unremarkable. | | IMPRESSION - 1. NO CONCLUSIVE EVIDENCE OF METASTATIC DISEASE IN THE ABDOMEN OR | | PELVIS.2. NO EVIDENCE OF BOWEL OBSTRUCTION OR VISIBLE INFLAMMATION.3. ATHEROSCLEROSIS | | AND ANEURYSMAL DILATION OF THE DISTAL AORTA TO A DIAMETER OF3.4 CM.4. INDETERMINATE 1.3 | | CM LEFT ADRENAL NODULE. CONSIDER FOLLOW-UP UNENHANCED ANDENHANCED ADRENAL CT IF | | FURTHER CHARACTERIZATION IS DESIRED.Dictated and Signed by: Ramsey Jones MD | | Electronically signed: 06/06/2018 12:53 PM | |pathologic lymph node enlargement, or hernia is evident. There is a stable tiny | |sclerotic focus in the right pubis, favoring a bone island. Bones and soft | |tissues are otherwise unremarkable. | | | |IMPRESSION - | |1. NO CONCLUSIVE EVIDENCE OF METASTATIC DISEASE IN THE ABDOMEN OR PELVIS. | | | |2. NO EVIDENCE OF BOWEL OBSTRUCTION OR VISIBLE INFLAMMATION. | | | |3. 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 | | | |4. INDETERMINATE 1.3 CM LEFT ADRENAL NODULE. CONSIDER FOLLOW-UP UNENHANCED AND | |ENHANCED ADRENAL CT IF FURTHER CHARACTERIZATION IS DESIRED. | | | |Dictated and Signed by: Ramsey Jones MD | | Electronically signed: 06/06/2018 12:53 PM | + + + +---------+ + + | Performing | Address | City/State/Zipcode | Phone Number | | Organization | | | | + +---------+ + + | [facility] | | | | + +---------+ + + IMAGING REPORT - EXTERNAL SCAN (11/08/2017 12:00 AM PST) + + + | Narrative | Performed At | + + + | Ordered by an | | | unspecified provider. | | + + + DIAGNOSTIC REPORT - EXTERNAL SCAN (10/02/2013 12:00 AM PST) + + + | Narrative | Performed At | + + + | Ordered by an | | | unspecified provider. | | + + + PATHOLOGY - EXTERNAL SCAN (10/01/2013 12:00 AM PST) + + + | Narrative | Performed At | + + + | Ordered by an | | | unspecified provider. | | + + + documented in this encounter Visit Diagnoses + + | Diagnosis | + + | Generalized abdominal pain - Primary Abdominal pain, generalized | + + | Constipation, unspecified constipation type | + + | History of prostate cancer Personal history of malignant neoplasm of prostate | + + | History of small bowel obstruction Personal history of other diseases of digestive | | system | + + documented in this encounter
--- OUTSIDE RECORDS SUMMARY | ~2020-05-08 | XMS | Encounter Summary ---
Demographics + + + | Address | [address] | | | [place] [address] | + + + | Home Phone | | + + + | Preferred Language | Unknown | + + + | Marital Status | Single | + + + | Congregation Affiliation | Unknown | + + + | Race | White | + + + | Ethnic Group | Not or | + + + Author + + + | Author | [facility] | | | and [place] | + + + | Organization | [facility] | | | and [...] Team Providers + +------+ + | Care Wood Tank Erector Name | Role | Phone | + +------+ + | Pranav Auguste MD | PCP | | + +------+ + Encounter Details +--------+ + + + + | Date | Type | Department | Care Team | Description | +--------+ + + + + | 05/16/ | Orders Only | [facility] | Brynn Bahena | | | 2019 | | MED CTR RADIATION MD Marcelo [address] | | | | | [facility] [address] | [place], [place] | | | | | [address] | [id number] | | | | | [place] [address] | | | | | | [phone] | | | +--------+ + + + [...] [address] | | | | | | [address] [place] | | | | | | [address] | | | | | | | | +--------+ + + + + documented as of this encounter Visit Diagnoses Not on filedocumented in this encounter"
--- OUTSIDE RECORDS SUMMARY | ~2020-05-08 | XMS | Encounter Summary ---
Demographics + + + | Address | [address] | | | [place] [address] | + + + | Home Phone [...] Team Providers + +------+ + | Care Insulating Machine Operator Name | Role | Phone | [...] | | abdominal | [address] | [place], | | | | | pain | [address] | [place] [address] | | | | | Constipation | [place], [place] | Phone: | | | | | , | [address] | [phone] | | | | | unspecified | Phone: | Fax: | | | | | constipation | [phone] | [phone] | | | | | type | Fax: | | | | | | History of | [phone] | | | | | | prostate [...] + + + + Reason for Visit Diagnostic/Screening (Routine) +--------+--------+ + + + + | Status | Reason | Specialty | Diagnoses / | Referred By | Referred To | | | | | Procedures | Contact | Contact | +--------+--------+ + + + + | Closed | | Radiology | Diagnoses | [place], | [address] | | | | | Generalized | MD Chencho | [address] | | | | | abdominal | [address] | [place], | | | | | pain | [address] | [place] [address] | | | | | Constipation | [place], [place] | Phone: | | | | | , | [address] | [phone] | | | | | unspecified | Phone: | Fax: | | | | | constipation | [phone] | [phone] | | | | | type | Fax: | | | | | | History of | [phone] | | | | | | prostate [...] | +--------+ + + + + | 06/06/ | Hospital | [facility] | Chencho Barrera MD | Generalized | | 2018 | Encounter | MED CTR [address] | [address] | abdominal pain; | | | | [address] [place], | [place], [place] | Constipation, | | | | [place] [address] | [address] | unspecified | | | | [phone] | [phone] | constipation type; | | | | | | History of prostate | | | | | | cancer; History of | | | | | | small bowel | | | | | | obstruction | +--------+ + + + + Social [...] mg by mouth | | 0 | 06/25/20 | | | hydrochloride | every 6 [...] | | | MD Ruchi [address] | | | | | | [place], [place] | | | | | | [address] | | | | | | | | +--------+ + + + + documented as of this encounter Procedures + +--------+ + + + | Procedure Name | Priori | Date/Time | Associated Diagnosis | Comments | | | ty | | | | + +--------+ + + + | CT ABDOMEN PELVIS W | Routin | 06/06/2018 | Generalized | Results for this | | CONTRAST | e | 10:36 AM | abdominal pain | procedure are in the | | | | PDT | Constipation, | results section. | | | | | unspecified | | | | | | constipation type | | | | | | History of prostate | | | | | | cancer History of | | | | | | small bowel | | | | | | obstruction | | + +--------+ + + + documented [...] | + + | Generalized abdominal pain Abdominal pain, generalized | + + | Constipation, unspecified constipation type | + + | History of prostate cancer Personal history of malignant neoplasm of prostate | + + | History of small bowel obstruction Personal history of other diseases of digestive | | system | + + documented in this encounter Administered Medications + +--------+ +--------+------+------+ | Medication Order | MAR | Action | Dose | Rate | Site | | | Action | Date | | | | + +--------+ +--------+------+------+ | iohexol (OMNIPAQUE 350) 350 | Given | 09/20/20 | 85 mLs | | | | mg/mL injection 85 mL 85 mL, | | 18 10:37 | | | | | Intravenous, ONCE PRN, Other, | | AM PDT | | | | | Starting [facility] 06/06/18 at 1037, For | | | | | | | 1 dose, Cat Scanner | | | | | | + +--------+ +--------+------+------+ +---+---+ | | | +---+---+ documented in this encounter"
--- OUTSIDE RECORDS SUMMARY | ~2020-05-08 | XMS | Encounter Summary ---
Demographics + + + | Address | [address] | | | [place] [address] | + + + | Home Phone [...] Author + + + | Author | [facility] | | | and [place] | + + + | Organization | [facility] | | [...] Team Providers + +------+ + | Care Microfiche Duplicator Name | Role | Phone | + +------+ + | Pranav Auguste MD | PCP | | + +------+ + Reason for Visit +--------+--------+ + | Reason | Onset | Comments | | | Date | | +--------+--------+ + | Other | 03/25/ | | | | 2018 | | +--------+--------+ + Encounter Details +--------+ + + + + | Date | Type | Department | Care Team | Description | +--------+ + + + + | 03/25/ | Telephone | [facility] | Brynn Bahena | Other | | 2018 | | MED CTR MEDICAL | MD Ruchi [address] | | | | | [facility]OGY CLINIC [address] | [address] [place], [place] | | | | | [address] [place] | [address] | | | | | [place] [address] | | | | | | [phone] | | | +--------+ + + + [...] Encounter - Maria Victoria Catherine RN - 03/25/2018 3:31 PM PDTOrders faxed and patient notified as requested. elephone Encounter - Radha Velez - 03/25/2018 11:13 AM PDTJames called requesting jeff t we send Lab orders [facility] [place]. Please be advised, thank you.Moisés munoz signed by Radha Velez at 03/25/2018 11:15 AM PDTdocumented in this encounter Plan of Treatment +--------+ + + + + | Date | Type | Specialty | Care Team | Description | +--------+ + + + + | 02/02/ | Appointment | Radiation Oncology | Brynn Bahena | | | 2020 | | | MD Marcelo [address] | | | | | | [place], [place] | | | | | | [id number] | | | | | | | | +--------+ + + + + documented as of this encounter Visit Diagnoses Not on filedocumented in this encounter"
--- OUTSIDE RECORDS SUMMARY | ~2020-05-08 | XMS | Encounter Summary ---
Demographics + + + | Address | [address] | | | [place] [address] | + + + | Home Phone [...] + + + | Author | [facility] | | | and [place] | + + + | Organization | [facility] | | | [...] Team Providers + +------+ + | Care Director Of Assessing Name | Role | Phone | + +------+ + | Pranav Auguste MD | PCP | | + +------+ + Reason for Referral Evaluate & Treat (Routine) +--------+ + + + + + | Status | Reason | Specialty | Diagnoses / | Referred By | Referred To | | | | | Procedures | Contact | Contact | +--------+ + + + + + | Closed | Specialty | Gastroenterol | Diagnoses | Shruti | Harri, | | | Services | ogy | Generalized | Brynn Hopper, | Pablito Yeung MD | | | Required | | abdominal | MD [address], | | | | | pain | [address] | [address] | | | | | | [place], | [place], | | | | | | [place] [address] | [place] [address] | | | | | | Phone: | Phone: | | | | | | [phone] | [phone] | | | | | | Fax: | Fax: | | | | | | [phone] | [phone] | +--------+ + + + + + Reason for Visit + + + | Reason | Comments | + + + | Follow-up | | + + + | Prostate Cancer | | + + + Evaluate & Treat (Routine) +--------+--------+ + + + + | Status | Reason | Specialty | Diagnoses / | Referred By | Referred To | | | | | Procedures | Contact | Contact | +--------+--------+ + + + + | Closed | | Radiation | Diagnoses | [facility] | [facility], | | | | Oncology | Malignant | Medical | Brynn Hopper MD | | | | | neoplasm of | Oncology | [address] | | | | | prostate | Clinic [address] | | | | | (HCC) | [address] | [place], | | | | | Prostate | [place], | [place] [address] | | | | | Cancer - | [place] | Phone: | | | | | Clinical T2c | [address] | [phone] | | | | | Joya 4+3 | Phone: | Fax: | | | | | carcinoma | [phone] | [phone] | | | | | Procedures | Fax: | | | | | | [place] OFFICE | [phone] | | | | | | OUTPATIENT [...] | +--------+ + + + + | 04/02/ | Hospital | [facility] | Brynn Bahena | Prostate Cancer - | | 2018 | Encounter | MED CTR RADIATION | MD Ruchi [address] | Clinical T2c [place] | | | | [facility]OGY CLINIC [address] | [place], [place] | 4+3 carcinoma | | | | [address] | [address] | (Primary Dx); | | | | [place] [address] | | Generalized | | | | [phone] | | abdominal pain | +--------+ + + + + Social [...] + + + | Blood Pressure | 110/70 | 04/02/2018 8:54 AM | | | | | PDT | | + + + + + | Pulse | 85 | 04/02/2018 8:54 AM | | | | | PDT | | + + + + + | Temperature | 36.9 C (98.4 F) | 04/02/2018 8:54 AM | | | | | PDT | | + + + + + | Respiratory Rate | 16 | 04/02/2018 8:54 AM | | | | | PDT | | + + + + + | Oxygen Saturation | 97% | 04/02/2018 8:54 AM | | | | | PDT | | + + + + + | Inhaled Oxygen | - | - | | | Concentration | | | | + + + + + | Weight | 86.1 kg (189 lb 13.1 | 04/02/2018 8:38 AM | | | | oz) | PDT | | + + + + + | Height | - | - | | + + + + + | Body Mass Index | 24.1 | 07/13/2017 8:39 AM | | | [...] mg by mouth | | 0 | 03/11/ | | | hydrochloride | every 6 [...] encounter Progress Notes Brynn Willis MD - 04/02/2018 8:16 AM PDT Radiation Oncology Follow-up Chief Complaint/ICD10 ICD-10-CM ICD-9-CM 1. Prostate Cancer - Clinical T2c [place] 4+3 carcinoma C61 185 History of Present Illness: Pablito Tripathi a 62 y.o.year-old malewith low-intermediate risk prostate canc er. Pathologic stage IIB, pT2c pN0, [place] 3+4=7, involving 20% of gland bilaterally, PNI p resent, Positive apical margin bilaterally, extraprostatic extension indeterminate, negative for SV invasion. He was initially treated prostatectomy with postoperative PSA 0.54. Comple denton salvage radiation with 68 Gy in 34 fractions on 09/14/17. Returns for routine follow-up, just over 6 months since completing radiation. Recall that he tolerated radiation extremely well with minimal bowel and bladder irritation. However in October he was admitted to [facility] for small bowel obstruction, resolved with bowel rest. Since that time he has continued to experience frequent abdominal pain and cramping. Weight loss of 10 lbs in the past 6 months. Notes that he does drink 8 cans of pepsi a day . Taking miralax most days however reports to 3 soft bowel movements a day even without jojo ing MiraLAX. He has discussed these symptoms with his primary care physician, Dr. Hess and Dr. Leonard, general surgeon. Bowel rest recommended when his symptoms are active. Chronic tenderness of his testicles since surgery, stable. He has not returned for follow- up with Dr. Martin in the past few months. He states that he had an appointment scheduled b ks canceled. He reports frequent urges to urinate however can hold his urine for multiple hours at the t romeo. Denies dysuria. Denies hematuria. AUA currently 15, baseline pretreatment was 25. REVIEW OF SYSTEMS Constitutional: Pt reports an increase in fatigue the last few months. Denies high fevers, shaking chills, anorexia. Pt reports nausea and vomiting yesterday- states he has abdominal pain in all quadrants that started roughly after radiation. This cramping pain causes nausea and occasional vomiting, a decrease in appetite, and fatigue. Pt reports a weight loss of 3 lbs since 12/12/17. Pt reports occasional night sweats, states last night he experienced an e pisode. Ear, Nose, Mouth, Throat: Denies odynophagia or dysphagia. Pt reports tinnitus for 20-30 ye ars. Cardiovascular: Denies shortness of breath, dyspnea on exertion, chest pain, palpitations o r orthopnea. Respiratory: Denies cough, hemoptysis, or sputum production. Gastrointestinal: Denies melena, or bright red blood per rectum. Pt reports cramping abdomi nal pain in all quadrants. Pt reports off and on again constipation and diarrhea dependant o n diet and what medications he takes. Genitourinary: Denies hematuria or dysuria. Musculoskeletal: Pt reports generalized arthritis. Neurologic: Denies headache or visual changes. Pt reports numbness in his toes that started 15 years ago. Endocrine: Denies peripheral edema or heat/cold intolerance. Hematologic: Denies spontaneous bruising or bleeding. Integumentary: Denies rash, wounds or other skin concerns. Note: Pt presents today for f/u with PSA. My chart: declined Pain assessment: Location: testicles, lower back, all abdominal quadrants Pain Level: 7 Pain Quality: testicles: sore when touched; all abdominal quadrants: cramping; lower back: aching Current pain regimen: Percocet 5/325mg q4h PRN for pain. Questionnaires: IPSS Questionnaire (AUA-7): Over the past month 1) How often have you had a sensation of not emptying your bladder completely after you fi emily urinating? 2 2) How often have you had to urinate again less than two hours after you finished urinatin g? 2 3) How often have you found you stopped and started again several times when you urinated? 2 4) How difficult have you found it to postpone urination? 1 5) How often have you had a weak urinary stream? 3 6) How often have you had to push or strain to begin urination? 1 7) How many times did you most typically get up to urinate from the time you went to bed un til the time you got up in the morning? 4 Total score: 0-7 mildly symptomatic 15 8-19 moderately symptomatic 20-35 severely symptomatic Current Outpatient Prescriptions Medication Sig Dispense Refill ALPRAZolam (XANAX) 2 MG tablet Take 1 mg by mouth 2 times daily. 0 atorvaSTATin (LIPITOR) 40 mg tablet Take 40 mg by mouth nightly. 0 fish oil 1,000 mg capsule Take 2,000 mg by mouth nightly. Loratadine 10 MG CAPS Take 10 mg by mouth Daily. Multiple Vitamin (MULTI-VITAMIN PO) Take 1 tablet by mouth Daily. oxyCODONE-acetaminophen (PERCOCET) 5-325 mg per tablet Take 1 tablet by mouth every 4 h ours as needed for Pain. polyethylene glycol (MIRALAX) powder Take 17 g by mouth nightly as needed. tiZANidine (ZANAFLEX) 4 mg tablet Take 4 mg by mouth 3 times daily. 0 traMADol (ULTRAM) 50 mg tablet Take 100 mg by mouth 4 times daily. 0 traZODone (DESYREL) 100 mg tablet Take 150 mg by mouth nightly. 0 No current facility-administered medications for this encounter. Allergies No active allergies Intolerance Allergen Reactions Codeine Nausea Only Vitals: 04/02/18 0854 BP: 110/70 Pulse: 85 Resp: 16 Temp: 36.9 C (98.4 F) Wt Readings from Last 3 Encounters: 04/02/18 86.1 kg (189 lb 13.1 oz) 12/12/17 87.3 kg (192 lb 7.4 oz) 09/13/17 90.4 kg (199 lb 4.7 oz) Physical Exam: General: Healthy appearing man in no acute medical distress. KPS: 90 HEENT: Pupils equal, round and reactive to light. No conjunctival icterus or injection. EOM I. Oral, moist mucus membranes. Lymphatic: No cervical, supraclavicular or axillary lymphadenopathy. Cardiovascular: Regular rate and rhythm, harsh systolic murmur. Pulmonary: Breath sounds heard throughout, no adventitial sounds or increased work of breat maxime at rest. Globally decreased Abdomen: Soft, non-tender, no masses or organomegaly detected. Extremities: Upper and lower extremities warm and well perfused with no upper or lower extr emity edema. Neurologic: Alert, oriented and appropriated in conversation. CN II-IX grossly intact. Moves all 4 extremities normally with normal gait. Psychiatric: Appropriate. Labs: PSA: 03/28/18 0.169 12/07/17 0.286 postradiation 06/27/17 0.54 04/26/17 0.63 06/27/17 0.54 post prostatectomy 01/11/17 4.23 09/19/16 4.25 Imaging: No recent results. Assessment: ICD-10-CM ICD-9-CM 1. Prostate Cancer - Clinical T2c [place] 4+3 carcinoma C61 185 Pablito Hollins completed salvage radiation about 6 months ago. PSA continues to slow ly fall. No additional workup needed at this time. Plan for ongoing PSA surveillance at si x-month intervals. Offered follow-up to alternate between myself and Dr. Martin. Patient i s anxious to follow-up, recommended 6 month return with PSA here. PSA in [place] prior to visit. Regarding his bowel symptoms, this likely represents a intermittent bowel obstruction relat ed to adhesions. Radiation related proctitis or enteritis is less likely, symptoms are inco nsistent. He is frusterated that continue to worsen. Referral to gastroenterology offered for further evaluation . Plan: -GI referral -Follow-up in 6 months with PSA -Continue to follow with Dr. Hess and Dr. Martin as directed No orders of the defined types were placed in this encounter. Thank you for allowing me to participate in the care of Pablito Hollins. If you should have any questions regarding this evaluation, please do not hesitate to contact me. Brynn To M.D. Radiation Oncologist Department of Radiation Oncology [facility] Office: [phone] CC: Patient Care Team: Pranav Auguste MD as PCP - General (Family Medicine) Brynn Willis MD as Physician (Radiation Oncology) Kevin Martin MD as Physician (Urology) Naveed Leonard MD (Specialist/Technologist,Other - Automotive Quality Manager) documented in thi s encounter Plan of Treatment +--------+ + + + + | Date | Type | Specialty | Care Team | Description | +--------+ + + + + | 02/02/ | Appointment | Radiation Oncology | Brynn Bahena | | | 2020 | | | MD [address] | | | | | | [place] | | | | | | [address] | | | | | | | | +--------+ + + + + + + +--------+ + + | Name | Type | Priori | Associated Diagnoses | Order Schedule | | | | ty | | | + + +--------+ + + | * MARC CAMILO | Outpatient | Routin | Generalized | Ordered: 04/02/2018 | | Gastroenterology - | Referral | e | abdominal pain | | | AMB Referral | | | | | + + +--------+ + + documented as of this encounter Procedures + +--------+ + + + | Procedure Name | Priori | Date/Time | Associated Diagnosis | Comments | | | ty | | | | + +--------+ + + + | LABS - EXTERNAL SCAN | | 03/28/2018 | | Results for this | | | | 12:00 AM | | procedure are in the | | | | PDT | | results section. | + +--------+ + + + documented in this encounter Results LABS - EXTERNAL SCAN (03/28/2018 12:00 AM PDT) + + + | Narrative | Performed At | + + + | Ordered by an | | | unspecified provider. | | + + + documented in this encounter Visit Diagnoses + + | Diagnosis | + + | Prostate Cancer - Clinical T2c [place] 4+3 carcinoma - Primary Malignant neoplasm of | | prostate | + + | Generalized abdominal pain Abdominal pain, generalized | + + documented in this encounter"
--- OUTSIDE RECORDS SUMMARY | ~2020-05-08 | XMS | Encounter Summary ---
Demographics + + + | Address | [address] | | | [place] [address] | + + + | Home Phone | | + + + | Preferred Language | Unknown | + + + | Marital Status | Single | + + + | Anglican Affiliation | Unknown | + + + | Race | White | + + + | Ethnic Group | Not or | + + + Author + + + | Author | [facility] | | | and [place] | + + + | Organization | [facility] | | | [...] Team Providers + +------+ + | Care Business Planning Manager Name | Role | Phone | + +------+ + | Pranav Auguste MD | PCP | | + +------+ + Encounter Details +--------+ + + + + | Date | Type | Department | Care Team | Description | +--------+ + + + + | 07/26/ | [facility] | [facility] | Brynn Bahena | Prostate Cancer - | | 2017 | Encounter | MED CTR RADIATION | MD Ruchi [address] | Clinical T2c [place] | | | | ONCOLOGY CLINIC [address] | [place], [place] | 4+3 carcinoma | | | | [address] | [address] | (Primary Dx) | | | | [place] [address] | | | | | | [phone] | | | +--------+ + + + [...] + + + | Blood Pressure | 157/68 | 07/26/2017 2:27 PM | | | | | PST | | + + + + + | Pulse | 68 | 07/26/2017 2:27 PM | | | | | PST | | + + + + + | Temperature | 36.3 C (97.4 F) | 07/26/2017 2:27 PM | | | | | PST | | + + + + + | Respiratory Rate | 16 | 07/26/2017 2:27 PM | | | | | PST | | + + + + + | Oxygen Saturation | 99% | 07/26/2017 2:27 PM | | | | | PST | | + + + + + | Inhaled Oxygen | - | - | | | Concentration | | | | + + + + + | Weight | 91.9 kg (202 lb 9.6 | 07/26/2017 2:27 PM | | | | oz) | PST | | + + + + + | Height | - | - | | + + + + + | Body Mass Index | 25.73 | 07/13/2017 8:39 AM | | | [...] encounter Progress Notes Brynn Willis MD - 07/26/2017 2:30 PM PST Radiation Oncology Weekly On Treatment Note Diagnosis: ICD-10-CM ICD-9-CM 1. Prostate Cancer - Clinical T2c [place] 4+3 carcinoma C61 185 Reason for visit: On treatment evaluation Prostate Cancer Radiation technical factors: Dose Delivered Dose Planned Fractions Delivered 600 cGy 6800 cGy Images were reviewed this week and results of the review have been recorded in [facility]. Corre ctions were applied as necessary. Vital Sign Current: Last 24 Hours: Temperature Temp: 36.3 C (97.4 F) Temp Min: 36.2 C (97.1 F) Max: 36.2 C (97.1 F) Blood Pressure BP: 157/68 BP Min: 143/88 Max: 143/88 Pulse Pulse: 68 Pulse Min: 73 Max: 73 Respirations Resp: 16 Resp Min: 16 Max: 16 Pain Rating Rest Pain Rating (0-10): Rest Min: 7 Max: 7 Pain Rating Activity Pain Rating (0-10): Activity Min: 7 Max: 7 O2 Sat SpO2: 99 % on liters/minute SpO2 Min: 98 % Max: 98 % Current Wt Current Wt: 91.9 kg (202 lb 9.6 oz) Admit Wt Admit Wt: 91.9 kg (202 lb 9.6 oz) Body mass index is 25.73 kg/m. Physical Exam Constitutional: He appears well-developed and well-nourished. Neurological: He is alert. Psychiatric: He has a normal mood and affect. Physician Assessment: Pablito started radiation this week. No acute side-effects. Working to meet bladder and angelita l recommendations for treatment. Reviewed nursing note: Denies pain Denies [place] KPS 90% Disposition: Continue radiation treatment as planned. Avoid bladder irritants. Brynn Joshi MD Radiation Oncologist documented in thi s encounter Plan of Treatment +--------+ + + + + | Date | Type | Specialty | Care Team | Description | +--------+ + + + + | 02/02/ | Appointment | Radiation Oncology | Brynn Bahena | | | 2020 | | | MD Ruchi [address] | | | | | | [place] | | | | | | [address] | | | | | | | | +--------+ + + + + documented as of this encounter Procedures + +--------+ + + + | Procedure Name | Priori | Date/Time | Associated Diagnosis | Comments | | | ty | | | | + +--------+ + + + | LABS - EXTERNAL SCAN | | 06/27/2017 | | Results for this | | | | 12:00 AM | | procedure are in the | | | | PDT | | results section. | + +--------+ + + + | PATHOLOGY - EXTERNAL | | 03/30/2017 | | Results for this | | SCAN | | 12:00 AM | | procedure are in the | | | | PDT | | results section. | + +--------+ + + + | LABS - EXTERNAL SCAN | | 03/29/2017 | | Results for this | | | | 12:00 AM | | procedure are in the | | | | PDT | | results section. | + +--------+ + + + | IMAGING REPORT - | | 01/25/2017 | | Results for this | | EXTERNAL SCAN | | 12:00 AM | | procedure are in the | | | | PDT | | results section. | + +--------+ + + + | PATHOLOGY - EXTERNAL | | 01/18/2017 | | Results for this | | SCAN | | 12:00 AM | | procedure are in the | | | | PDT | | results section. | + +--------+ + + + documented in this encounter Results LABS - EXTERNAL SCAN (06/27/2017 12:00 AM PDT) + + + | Narrative | Performed At | + + + | Ordered by an | | | unspecified provider. | | + + + PATHOLOGY - EXTERNAL SCAN (03/30/2017 12:00 AM PDT) + + + | Narrative | Performed At | + + + | Ordered by an | | | unspecified provider. | | + + + LABS - EXTERNAL SCAN (03/29/2017 12:00 AM PDT) + + + | Narrative | Performed At | + + + | Ordered by an | | | unspecified provider. | | + + + IMAGING REPORT - EXTERNAL SCAN (01/25/2017 12:00 AM PDT) + + + | Narrative | Performed At | + + + | Ordered by an | | | unspecified provider. | | + + + PATHOLOGY - EXTERNAL SCAN (01/18/2017 12:00 AM PDT) + + + | Narrative | Performed At | + + + | Ordered by an | | | unspecified provider. | | + + + documented in this encounter Visit Diagnoses + + | Diagnosis | + + | Prostate Cancer - Clinical T2c [place] 4+3 carcinoma - Primary Malignant neoplasm of | | prostate | + + documented in this encounter"
--- OUTSIDE RECORDS SUMMARY | ~2020-05-08 | XMS | Encounter Summary ---
Demographics + + + | Address | [address] | | | [place] [address] | + + + | Home Phone | | + + + | Preferred Language | Unknown | + + + | Marital Status | Single | + + + | Mu-Ism Affiliation | Unknown | + + + | Race | White | + + + | Ethnic Group | Not or | + + + Author + + + | Author | [facility] | | | and [place] | + + + | Organization | [facility] | | | [...] Team Providers + +------+ + | Care Instructor Business Education Name | Role | Phone | + +------+ + | Darlin Jain MD | PCP | | + +------+ + Reason for Visit Evaluate & Treat (Routine) + +--------+ + + + + | Status | Reason | Specialty | Diagnoses / | Referred By | Referred To | | | | | Procedures | Contact | Contact | + +--------+ + + + + | Authorized | | Radiation | Diagnoses | Molina, | Shruti | | | | Oncology | Malignant | Pranav | Brynn Hopper MD | | | | | neoplasm of | MD [address] | [address] | | | | | prostate | [address] | [address] | | | | | (HCC) C61 | [address] | [place], | | | | | (ICD-10-CM) | [place], | [place] [address] | | | | | - [address] | [place] | Phone: | | | | | (ICD-9-CM) - | [address] | [phone] | | | | | Prostate | Phone: | Fax: | | | | | cancer (HCC) | [phone] | [phone] | | | | | Procedures | Fax: | | | | | | [address] | [phone] | | + +--------+ + + + + Encounter Details +--------+ + + + + | Date | Type | Department | Care Team | Description | +--------+ + + + + | 02/01/ | Hospital | [facility] | Radha Lieberman | Prostate Cancer - | | 2020 | Encounter | [facility] | ANALY Parham [address] | Clinical T2c [place] | | | | ON[facility]OGY CLINIC [address] | [place] | 4+3 carcinoma | | | | [address] | [place] [address] | (Primary Dx) | | | | [place] [address] | [phone] | | | | | [phone] | | | +--------+ + + + [...] mg by mouth | | 0 | 02/18/20 | | | 1 MG tablet | 2 times daily. | | | 19 | | + + + +---------+ + + | atorvaSTATin | Take 40 mg by mouth | | 0 | 03/10/20 | | | (LIPITOR) 40 mg | nightly. | | | 17 | | | tablet | | | | | | + + + +---------+ + + | cyclobenzaprine | Take 1 tablet by | | 0 | 11/03/19 | | | (FLEXERIL) 10 mg | mouth Twice daily | | | 20 | | | tablet | as needed. | | | | | + + + +---------+ + + | diclofenac | Take 1 tablet by | | 0 | 03/29/20 | | | (VOLTAREN) 50 mg EC | mouth 2 times daily. | | | 19 | | | tablet | | | | | | + + + +---------+ + + | divalproex | Take 500 mg by mouth | | 0 | 01/06/20 | | | (DEPAKOTE ER) 500 mg | Daily. | | | 20 | | | 24 hr tablet | | | | | | + + + +---------+ + + | DULoxetine | Take 30 mg by mouth | | 0 | 03/13/20 | | | (CYMBALTA) [address] | Daily. | | | 19 | | | capsule | | | | [...] + + + +---------+ + + | oxybutynin | Take 1 tablet by | 30 | 5 | 05/16/20 | | | (DITROPAN-XL) 10 MG | mouth Daily. | tablet | | 19 | | | 24 hr tablet | | | | | | + + + +---------+ + + | oxyCODONE | Take 7.5 mg by mouth | | 0 | 01/06/20 | | | (ROXICODONE) 15 mg | EVERY 4 TO 6 HOURS | | | 20 | | | immediate release | NEEDED. | | | | | | tablet [...] + + | rOPINIRole | Take 1 tablet by | | 0 | 03/29/20 | | | (REQUIP) 3 MG tablet | mouth nightly. | | | 19 | | + + + +---------+ + + | tiZANidine | Take 4 mg by mouth 2 | | 0 | 02/23/20 | | | (ZANAFLEX) 4 mg | times daily. | | | 17 | | | tablet | | | | | | + + + +---------+ + + | traZODone | Take 1 tablet by | | 0 | 11/04/19 | | | (DESYREL) 150 MG | mouth nightly. | | | 19 | | | tablet | | | | | | + + + +---------+ + + documented as of this encounter Progress Notes Radha Lieberman ARNP - 02/02/2020 10:00 AM PDTFormatting of this note might be diffe rent from the original. Radiation Oncology Telephone Visit Patient ID: Pablito Hollins is a 64 y.o. male. The encounter diagnosis was Prostate Cancer - Clinical T2c [place] 4+3 carcinoma. Location of patient: at home. Subjective Patient states that he has been doing and feeling well other than fatigue. This energy decr ease started approximately 7 months ago and is not associated with any new medications or ro utines. The patient states that other than basic yard and house work he is not getting exerc ise. PSA 01/27/2020 0.018 (last I can see is 0.044 on 04/02/2019). His urinary symptoms have improved since working with his urologist, Dr. Spann. His AUA an d dropped from a 29 last March to 10 today. Participants: Patient Medications and Allergies Current Outpatient Medications Medication Sig Dispense Refill ALPRAZolam (XANAX) 1 MG tablet Take 0.5 mg by mouth 2 times daily. atorvaSTATin (LIPITOR) 40 mg tablet Take 40 mg by mouth nightly. 0 diclofenac (VOLTAREN) 50 mg EC tablet Take 1 tablet by mouth 2 times daily. DULoxetine (CYMBALTA) [address] capsule Take 30 mg by mouth Daily. fish oil 1,000 mg capsule Take 2,000 mg by mouth nightly. HYDROmorphone (DILAUDID) 4 MG tablet Take 1 tablet by mouth EVERY 4 TO 6 HOURS NEEDE D. hydrOXYzine hydrochloride (ATARAX) 25 mg tablet Take 25 mg by mouth every 6 hours as ne eded. Loratadine 10 MG CAPS Take 10 mg by mouth Daily. Multiple Vitamin (MULTI-VITAMIN PO) Take 1 tablet by mouth Daily. oxybutynin (DITROPAN-XL) 10 MG 24 hr tablet Take 1 tablet by mouth Daily. 30 tablet 5 polyethylene glycol (MIRALAX) powder Take 17 g by mouth nightly as needed. rOPINIRole (REQUIP) 3 MG tablet Take 1 tablet by mouth nightly. tiZANidine (ZANAFLEX) 4 mg tablet Take 4 mg by mouth 2 times daily. 0 traZODone (DESYREL) 150 MG tablet Take 1 tablet by mouth nightly. No current facility-administered medications for this visit. Allergies No active allergies Intolerance Allergen Reactions Codeine Nausea Only ROS REVIEW OF SYSTEMS Constitutional: Reports decreased energy over the last 7 months. Reports night sweats. D enies high fevers, shaking chills, anorexia, nausea, vomiting, weight loss. Appetite withou t changes. Ear, Nose, Mouth, Throat: Reports chronic tinnitus. Reports difficulty swallowing in the la te afternoon. Denies odynophagia, dysphagia. Cardiovascular: Denies shortness of breath, dyspnea on exertion, chest pain, palpitations o r orthopnea. Respiratory: Denies cough, hemoptysis, or sputum production. Gastrointestinal: Reports abdominal pain since prostatectomy. Denies constipation, diarrhe a, melena, or bright red blood per rectum. Genitourinary: Denies hematuria or dysuria. Musculoskeletal: Reports chronic back pain and general joint pain. Neurologic: Reports numbness in feet at night. Denies headache, visual changes.Endocrine: Denies peripheral edema or heat/cold intolerance. Hematologic: Denies spontaneous bruising or bleeding. Integumentary: Denies rash, wounds or other skin concerns. Pain: Reports pain to back at a level 5 today. Note: Telephonic visit with ANALY Lozada. My chart: Pending Questionnaires Questionnaires: IPSS Questionnaire (AUA-7): Over the past month 1) How often have you had a sensation of not emptying your bladder completely after you fi emily urinating? 2 - Less than half the time 2) How often have you had to urinate again less than two hours after you finished urinatin g? 1 - Less than 1 time in 5 3) How often have you found you stopped and started again several times when you urinated? 2 - Less than half the time 4) How difficult have you found it to postpone urination? 1 - Less than 1 time in 5 5) How often have you had a weak urinary stream? 1 - Less than 1 time in 5 6) How often have you had to push or strain to begin urination? 1 - Less than 1 time in 5 7) How many times did you most typically get up to urinate from the time you went to bed un til the time you got up in the morning? 2 - 2 times Total score: 0-7 mildly symptomatic 8-19 moderately symptomatic 20-35 severely symptomatic TOTAL: 10 Assessment & Plan 1. Prostate Cancer - Clinical T2c [place] 4+3 carcinoma 1. Stage IIB (T2c, joya 4+3) adenocarcinoma of the prostate. Patient has completed prost atectomy followed by salvage radiation. EOT 09/14/2017. He is following up closely with rosette velazquez. He is continuing with at least Q6 month PSA evaluations. Last PSA 01/27/2020 was 0.018. He will be due for his next PSA ~07/29/2020. The patient reports that [facility] [place] [place] at that time but would like the order sent there. For his fatigue we discussed the benefits of exercise at length. He was encouraged to start routinely exercising, for short periods at first (for example 5 minutes) but with a goal of 150 minutes of moderate exercise each week. We discussed the benefits of this kind of exerc ise, including decrease in anxiety, depression, improvement in sleep, decrease in fatigue, i ncrease of good cholesterol and decrease of bad cholesterol amongst other benefits. He state s understanding and a willingness to go for walks along the path close to his home. The patient was given an opportunity to ask questions about our COVID-19 pandemic. This lundberg demic is the reason the patient was not brought into the office today. It was emphasized jfef t the patient may call at any time to discuss any new or concerning symptoms and that we yaron l bring him into the office for a physical exam if needed. Patient states understanding and a willingness to contact us, as needed. Follow up Instructions: 1. Next PSA due ~07/29/2020. Patient requests order be sent to [place], [place]. He was informed th at if he does not have an order in hand prior to leaving, he should call our office so we ca n arrange to have the order sent to the appropriate place. 2. RTO in 1 year. 3. Continue to follow-up with Dr. Spann as indicated. 4. Patient requests that a copy of this note be sent to his primary and his urologist. I wi ll route accordingly. This consultation was provided via telemedicine using two-way, real-time interactive teleco mmunication technology between the patient and the physician. The interactive telecommunica tion technology included audio without video. The patient was offered telemedicine as an op tion for care delivery to decrease risk of exposure to COVID-19 during the current pandemic crisis. She verbally consented to this option. Patient has not been seen in office within the past 7 days, and outcome of this call is not to recommend soonest available office visit. Clinical discussion length: 12 minutes 11-20 min ([id number]) ANALY Villarreal, AOCNP Department of Radiation Oncology [facility] Office: [phone] documented in this encounter Plan of Treatment +--------+ + + + + | Date | Type | Specialty | Care Team | Description | +--------+ + + + + | 02/02/ | Appointment | Radiation Oncology | Brynn Bahena | | | 2020 | | | MD Ruchi [address] | | | | | | [place] | | | | | | [address] | | | | | | | | +--------+ + + + + documented as of this encounter Procedures + +--------+ + + + | Procedure Name | Priori | Date/Time | Associated Diagnosis | Comments | | | ty | | | | + +--------+ + + + | LABS - EXTERNAL SCAN | | 01/27/2020 | | Results for this | | | | 12:00 AM | | procedure are in the | | | | PDT | | results section. | + +--------+ + + + documented in this encounter Results LABS - EXTERNAL SCAN (01/27/2020 12:00 AM PDT) + + + | Narrative | Performed At | + + + | Ordered by an | | | unspecified provider. | | + + + documented in this encounter Visit Diagnoses + + | Diagnosis | + + | Prostate Cancer - Clinical T2c [place] 4+3 carcinoma - Primary Malignant neoplasm of | | prostate | + + documented in this encounter"
--- OUTSIDE RECORDS SUMMARY | ~2020-05-08 | XMS | Encounter Summary ---
Demographics + + + | Address | [address] | | | [place] [address] | + + + | Home Phone [...] Author + + + | Author | [facility] | | | and [place] | + + + | Organization | [facility] | | | and [...] Team Providers + +------+ + | Care Computer Information Systems Instructor Name | Role | Phone | + +------+ + | Darlin Jain MD | PCP | | + +------+ + Encounter Details +--------+ + + + + | Date | Type | Department | Care Team | Description | +--------+ + + + + | 02/01/ | Documentati | [facility] | Radha Lieberman | | | 2020 | on | MED CTR RAD[facility]ATION | ANALY Parham [address] | | | | | ONCOLOGY CLINIC [address] | [address] | | | | | [address] [place] | [place] [address] | | | | | [place] [address] | [phone] | | | | | [phone] | | | +--------+ + + + [...] [place] | | | | | | [address] | | | | | | | | +--------+ + + + + documented as of this encounter Visit Diagnoses Not on filedocumented in this encounter"
--- OUTSIDE RECORDS SUMMARY | ~2020-05-08 | XMS | Encounter Summary ---
Demographics + + + | Address | [address] | | | [place] [address] | + + + | Home Phone | | + + + | Preferred Language | Unknown | + + + | Marital Status | Single | + + + | Islam Affiliation | Unknown | + + + | Race | White | + + + | Ethnic Group | Not or | + + + Author + + + | Author | [facility] | | | and [place] | + + + | Organization | [facility] | | | [...] Team Providers + +------+ + | Care Head Girls Golf Coach Name | Role | Phone | + +------+ + | Pranav Auguste MD | PCP | | + +------+ + Reason for Visit + + + | Reason | Comments | + + + | Under Treatment | | + + + Encounter Details +--------+ + + + + | Date | Type | Department | Care Team | Description | +--------+ + + + + | 08/08/ | Hospital | [facility] | Brynn Bahena | Prostate Cancer - | | 2017 | Encounter | MED CTR RADIATION | MD Ruchi [address] | Clinical T2c [place] | | | | ONCOLOGY CLINIC [address] | [place], [place] | 4+3 carcinoma | | | [facility] [address] | (Primary Dx) | | | | [place] [address] | | | | | | [phone] | Honorio Johnson DO | | | | | | [address] | | | | | | [place], [place] | | | | | | [address] | | | | | | | [...] + + + | Blood Pressure | 142/67 | 08/08/2017 1:59 PM | | | | | PST | | + + + + + | Pulse | 75 | 08/08/2017 1:59 PM | | | | | PST | | + + + + + | Temperature | 36.2 C (97.1 F) | 08/08/2017 1:59 PM | | | | | PST | | + + + + + | Respiratory Rate | 16 | 08/08/2017 1:59 PM | | | | | PST | | + + + + + | Oxygen Saturation | 93% | 08/08/2017 1:59 PM | | | | | PST | | + + + + + | Inhaled Oxygen | - | - | | | Concentration | | | | + + + + + | Weight | 92 kg (202 lb 13.2 | 08/08/2017 1:59 PM | | | | oz) | PST | | + + + + + | Height | - | - | | + + + + + | Body Mass Index | 25.76 | 07/13/2017 8:39 AM | | | [...] documented as of this encounter Progress Notes HonorioDO - 08/08/2017 2:01 PM PST Radiation Oncology Weekly On Treatment Note Diagnosis: ICD-10-CM ICD-9-CM 1. Prostate Cancer - Clinical T2c [place] 4+3 carcinoma C61 185 Reason for visit: On treatment evaluation Radiation technical factors: Dose Delivered Dose Planned Fractions Delivered 2400 cGy 6800 cGy Images were reviewed this week and results of the review have been recorded in ARIA. Corre ctions were applied as necessary. Vital Sign Current: Last 24 Hours: Temperature Temp: 36.2 C (97.1 F) Temp Min: 36.2 C (97.1 F) Max: 36.2 C (97.1 F) Blood Pressure BP: 142/67 BP Min: 142/67 Max: 142/67 Pulse Pulse: 75 Pulse Min: 75 Max: 75 Respirations Resp: 16 Resp Min: 16 Max: 16 Pain Rating Rest Pain Rating (0-10): Rest: 0 Pain Rating (0-10): Rest Min: 0 Max: 0 Pain Rating Activity Pain Rating (0-10): Activity: 0 Pain Rating (0-10): Activity Min: 0 Max: 0 O2 Sat SpO2: 93 % on liters/minute SpO2 Min: 93 % Max: 93 % Current Wt Current Wt: 92 kg (202 lb 13.2 oz) Admit Wt Admit Wt: 92 kg (202 lb 13.2 oz) Body mass index is 25.76 kg/m. Wt Readings from Last 3 Encounters: 08/08/17 92 kg (202 lb 13.2 oz) 08/02/17 94.4 kg (208 lb 1.8 oz) 07/26/17 91.9 kg (202 lb 9.6 oz) Physical Exam Constitutional: He is oriented to person, place, and time. Vital signs are normal. He appea rs well-developed and well-nourished. No distress. HENT: Head: Normocephalic and atraumatic. Eyes: Conjunctivae and EOM are normal. No scleral icterus. Neck: Trachea normal. Cardiovascular: Normal rate. Pulmonary/Chest: Effort normal and breath sounds normal. No accessory muscle usage. No resp iratory distress. Musculoskeletal: Normal range of motion. Neurological: He is oriented to person, place, and time. He has normal strength and normal reflexes. No cranial nerve deficit. Coordination normal. Psychiatric: He has a normal mood and affect. His behavior is normal. Judgment and thought content normal. Cognition and memory are normal. Nursing note and vitals reviewed. Physician Assessment: Overall, he is tolerating treatment well noting minimal change in urinary stream strength. He does note mild burning in the initiation of his urinary stream typically first thing in the morning. Advised cranberry juice and hydration overall. Has no bowel complaints at thi s time or symptoms of tenesmus or proctitis. Toxicities reviewed. Continue treatment as pl anned. Toxicities reviewed in nursing note. Disposition: Continue radiation treatment as planned. Honorio Johnson DO Radiation Oncologist Maria Victoria Kenny RN - 1 10/08/2016 2:00 PM PST 08/08/17 1400 Gastrointestinal Constipation 0 - Grade 0 Diarrhea 0 - Grade 0 Renal and Urinary Urinary Tract Pain 1 - Grade 1 Performance Status Karnofsky [...] | | | | | | [place] | | | | | | [address] | | | | | | | | +--------+ + + + + documented as of this encounter Visit Diagnoses + + | Diagnosis | + + | Prostate Cancer - Clinical T2c [place] 4+3 carcinoma - Primary Malignant neoplasm of | | prostate | + + documented in this encounter"
--- OUTSIDE RECORDS SUMMARY | ~2020-05-08 | XMS | Encounter Summary ---
Demographics + + + | Address | [address] | | | [place] [address] | + + + | Home Phone [...] Author + + + | Author | [facility] | | | and [place] | + + + | Organization | [facility] | | [...] Team Providers + +------+ + | Care Rotary Drill Operator Helper Name | Role | Phone | + [...] +--------+ + + + + + | Denied | Specialty | Physical | Diagnoses | Shruti | [place], | | | Services | Medicine and | Chronic | Brynn Hopper, | Chapin Armstrong MD | | | Required | Rehabilitatio | midline low | MD [address] | | | | n | back pain, | [address] | [place] | | | | | with | [place], | [place], [place] | | | | | sciatica | [place] [address] | [address] Phone: | | | | | presence | Phone: | [phone] | | | | | unspecified | [phone] | Fax: | | | | | | Fax: | [phone] | | | | | | [phone] | | +--------+ + + + + + Reason for Visit + + + | Reason | Comments | + + + | Under Treatment | | + + + Encounter Details +--------+ + + + + | Date | Type | Department | Care Team | Description | +--------+ + + + + | 08/02/ | Hospital | [facility] | Brynn Bahena | Prostate Cancer - | | 2017 | Encounter | MED CTR RADIATION | MD Ruchi [address] | Clinical T2c [place] | | | | ONCOLOGY CLINIC [address] | [place], [place] | 4+3 carcinoma | | | | [address] [place] | [address] | (Primary Dx); | | | | [place] [address] | | Chronic midline low | | | | [phone] | | back pain, with | | | | | | sciatica presence | | | | | | unspecified | +--------+ + + + + Social [...] + + + | Blood Pressure | 143/88 | 08/02/2017 2:54 PM | | | | | PST | | + + + + + | Pulse | 73 | 08/02/2017 2:54 PM | | | | | PST | | + + + + + | Temperature | 36.2 C (97.1 F) | 08/02/2017 2:54 PM | | | | | PST | | + + + + + | Respiratory Rate | 16 | 08/02/2017 2:54 PM | | | | | PST | | + + + + + | Oxygen Saturation | 98% | 08/02/2017 2:54 PM | | | | | PST | | + + + + + | Inhaled Oxygen | - | - | | | Concentration | | | | + + + + + | Weight | 94.4 kg (208 lb 1.8 | 08/02/2017 2:54 PM | | | | oz) | PST | | + + + + + | Height | - | - | | + + + + + | Body Mass Index | 26.43 | 07/13/2017 8:39 AM | | | [...] encounter Progress Notes Brynn Willis MD - 08/02/2017 2:57 PM PST Radiation Oncology Weekly On Treatment Note Diagnosis: ICD-10-CM ICD-9-CM 1. Prostate Cancer - Clinical T2c [place] 4+3 carcinoma C61 185 Reason for visit: On treatment evaluation Radiation technical factors: Dose Delivered Dose Planned Fractions Delivered 1600 cGy 6800 cGy Images were reviewed this week and results of the review have been recorded in ARIA. Corre ctions were applied as necessary. Vital Sign Current: Last 24 Hours: Temperature Temp: 36.2 C (97.1 F) Temp Min: 36.2 C (97.1 F) Max: 36.2 C (97.1 F) Blood Pressure BP: 143/88 BP Min: 143/88 Max: 143/88 Pulse Pulse: 73 Pulse Min: 73 Max: 73 Respirations Resp: 16 Resp Min: 16 Max: 16 Pain Rating Rest Pain Rating (0-10): Rest: 7 Pain Rating (0-10): Rest Min: 7 Max: 7 Pain Rating Activity Pain Rating (0-10): Activity: 7 Pain Rating (0-10): Activity Min: 7 Max: 7 O2 Sat SpO2: 98 % on liters/minute SpO2 Min: 98 % Max: 98 % Current Wt Current Wt: 94.4 kg (208 lb 1.8 oz) Admit Wt Admit Wt: 94.4 kg (208 lb 1.8 oz) Body mass index is 26.43 kg/m. Wt Readings from Last 3 Encounters: 08/02/17 94.4 kg (208 lb 1.8 oz) 07/26/17 91.9 kg (202 lb 9.6 oz) 07/13/17 89.4 kg (197 lb 1.5 oz) Physical Exam Constitutional: He appears well-developed and well-nourished. Neurological: He is alert. Psychiatric: He has a normal mood and affect. Physician Assessment: Mild fatigue and subtle changes in the sensation when he urinates. No pain or dysuria. No i ncont or urinary obstruction. Bowels tend to be constipated. Chronic back pain and disabilit y, taking ultram, indocin, and dilaudid. This pain is not felt to be malignancy related. Deg enerative changes on simulation CT. Long standing symptoms. Toxicities reviewed in nursing note. Disposition: Continue radiation treatment as planned. Referral to [facility]physiatry for evaluation of back pain treatment options. Brynn Joshi MD Radiation Oncologist Maria Victoria Kenny RN - 08/02/2017 2:57 PM PST 08/02/17 1456 Gastrointestinal Constipation 0 - Grade 0 Diarrhea 0 - Grade 0 General Disorders and Administration Site Conditions Fatigue 1 - Grade 1 Renal and Urinary Urinary Tract Pain 0 - Grade 0 Performance Status Karnofsky Performance Score 80% documented [...] [address] | | | | | | [place], [place] | | | | | | [address] | | | | | | | | +--------+ + + + + + + +--------+ + + | Name | Type | Priori | Associated Diagnoses | Order Schedule | | | | ty | | | + + +--------+ + + | * [facility] [place] | Outpatient | Routin | Chronic midline | Ordered: 08/02/2017 | | Physiatry - AMB | Referral | e | low back pain, with | | | Referral | | | sciatica presence | | | | | | unspecified | | + + +--------+ + + documented as of this encounter Visit Diagnoses + + | Diagnosis | + + | Prostate Cancer - Clinical T2c [place] 4+3 carcinoma - Primary Malignant neoplasm of | | prostate | + + | Chronic midline low back pain, with sciatica presence unspecified | + + documented in this encounter"
--- OUTSIDE RECORDS SUMMARY | ~2020-05-08 | XMS | Encounter Summary ---
Demographics + + + | Address | [address] | | | [place] [address] | + + + | Home Phone | | + + + | Preferred Language | Unknown | + + + | Marital Status | Single | + + + | Restorationism Affiliation | Unknown | + + + | Race | White | + + + | Ethnic Group | Not or | + + + Author + + + | Author | [facility] | | | and [place] | + + + | Organization | [facility] | | | and [...] Team Providers + +------+ + | Care Home Health Care Coordinator Name | Role | Phone | + +------+ + | Darlin Jain MD | PCP | | + +------+ + Reason for Referral Evaluate & Treat (Routine) + + + + + + + | Status | Reason | Specialty | Diagnoses / | Referred By | Referred To | | | | | Procedures | Contact | Contact | + + + + + + + | Authorized | Specialty | Physical | Diagnoses | [place] | JAMIL | | | Services | Therapy | Chronic | ANALY Thompson | [place] | | | Required | | midline low | [address] | PHYSICAL | | | | | back pain | [address] | THERAPY - | | | | | without | DRIVE [address] | [place] | | | | | sciatica | [address] | [address] | | | | | Lumbar facet | [place], [place] | [address] | | | | | arthropathy | [address] | [address] | | | | | | Phone: | [place], [place] | | | | | Degenerative | [phone] | [address] | | | | | disc | Fax: | Phone: | | | | | disease, | [phone] | [phone] | | | | | lumbar | | Fax: | | | | | | | [phone] | + + + + + + + Reason for Visit + + + | Reason | Comments | + + + | Establish Care | Lumbar | + + + Evaluate & Treat (Routine) + +--------+ + + + + | Status | Reason | Specialty | Diagnoses / | Referred By | Referred To | | | | | Procedures | Contact | Contact | + +--------+ + + + + | Authorized | | Neurosurgery | Diagnoses | Cristobal, Nu | [facility] | | | | | Lumbago | MD [address] | Neurosurgery | | | | | with | [address] | [address] | | | | | sciatica, | [address] | [address] | | | | | left side | [place], | [address] | | | | | [place] | [place] [address] | [place], [place] | | | | | sciatica, | Phone: | [phone] | | | | | right side | [phone] | Phone: | | | | | lumbar | Fax: | [phone] | | | | | | [phone] | Fax: | | | | | | | [phone] | + +--------+ + + + + Encounter Details +--------+---------+ + + + | Date | Type | Department | Care Team | Description | +--------+---------+ + + + | 03/26/ | Office | [facility] | Jules Simmons, | Chronic midline low | | 2020 | Visit | NEUROSURGERY [address] | [employer] [address] | back pain without | | | | [address] | [address] | sciatica (Primary | | | | [place], [place] | [place] [address] | Dx); Lumbar facet | | | | [phone] | [phone] | arthropathy; | | | | [phone] | | Degenerative disc | | | | | | disease, lumbar | +--------+---------+ + + + Social History [...] + + + | Blood Pressure | 117/75 | 03/26/2020 2:18 PM | | | | | PDT | | + + + + + | Pulse | 90 | 03/26/2020 2:18 PM | | | | | PDT | | + + + + + | Temperature | - | - | | + + + + + | Respiratory Rate | - | - | | + + + + + | Oxygen Saturation | - | - | | + + + + + | Inhaled Oxygen | - | - | | | Concentration | | | | + + + + + | Weight | 88.5 kg (195 lb) | 03/26/2020 2:18 PM | | | | | PDT | | + + + + + | Height | 188 cm (6' 2") | 03/26/2020 2:18 PM | | | | | PDT | | + + + + + | Body Mass Index | 25.04 | 03/26/2020 2:18 PM | | | | | PDT | | + + + + + documented in this encounter Patient Instructions Patient Instructions Debra Lira, Checkout Supervisor - 03/26/2020 2:20 PM PDTRefer ral to physical therapy in [place] Follow up in 6 weeks Electronically signed by Debra Lira Checkout Supervisor at 06/2020 3:02 PM PDT documented in this encounter Progress Notes Jules Simmons, [facility] - 03/26/2020 2:20 PM PDTFormatting of this note might be different f rom the original. Neurosurgery Pablito Hollins is a 64 y.o. male seen in consultation at the request of Ruchi Bonner Referring Provider: Darlin Jain MD History Obtained from: Patient Subjective History of Present Illness: Pablito Hollins is a 64 y.o. male seen in consultation at the request of Ruchi Bonner for complaints of pain that is located in the right and left lower lumbar region with occa sional radiation to the midline thoracic region as well as over over to the buttocks. He st ates that he will have occasions where he thinks that the pain will cause his knees to buckl e. He denies any numbness/tingling in the lower extremities. He reports occasional weaknes s in the lower extremities. He finds it hard to go from sitting to standing without pain. Onset: of pain was over 15+ years. Duration: Pain is increased. Pain is always present, intensity varies.. Characteristics: The pain is described as aching. Aggravating factors: physical activity. Alleviating factors: medicines. Severity: He rates his pain at its worst Pain scale: 10/10, pain on average Pain scale: 9/10, pain currently Pain scale: 9/10. He can sit, 1-2 hours, stand, 1-2 hours, and walk, 1-2 hours. Sleep is interrupted by th e pain more than three times per night. Leaning forward the pain is worse. Leaning backwar d the pain is worse. Conservative treatments tried: Conservative measures like physical therapy have not been tired recently. Medications trie d are Oxycodone 15 mg immediate release, 4-6 times a day, diclofenac. He has not had nerve blocks or injections for pain relief. History of cancer, fever, or infection?: Yes, prostate cancer with surgically removed, he also did radiation. Bowel and Bladder Changes/Incontinence?: No Past Medical History: Diagnosis Date Chronic back pain Depression with anxiety Erectile dysfunction Full dentures Heart murmur Hyperlipidemia Lumbar disc disease Microhematuria Nodular prostate with urinary obstruction Prostate cancer (HCC) Restless leg syndrome Slowing of urinary stream Past Surgical History: Procedure Laterality Date BIOPSY 01/25/2017 Procedure: US GUIDED BIOPSY - Location: [facility] COLONOSCOPY COLONOSCOPY N/A 07/31/2018 Procedure: COLONOSCOPY; Surgeon: Chencho Barrera MD; Location: [facility] MEDICAL PROCEDURE UNIT LYMPHADENECTOMY PRE-MALIGNANT / BENIGN SKIN LESION EXCISION Left Left groin PROSTATECTOMY N/A 03/30/2017 Procedure: Radical Prostatectomy; Surgeon: Kevin Martin MD; Location: [facility] MAIN OR Social History Socioeconomic History Marital status: Single Spouse name: Not on file Number of children: Not on file Years of education: Not on file Highest education level: Not on file Occupational History Not on file Social Needs Financial resource strain: Not on file Food insecurity Worry: Not on file Inability: Not on file Transportation needs Medical: Not on file Non-medical: Not on file Tobacco Use Smoking status: Former Smoker Packs/day: 0.25 Years: 49.00 Pack years: 12.25 Types: Cigarettes Quit date: 09/17/2018 Years since quittin.5 Smokeless tobacco: Former User Substance and Sexual Activity Alcohol use: No Comment: Quit drinking in 2006 Drug use: No Sexual activity: Not on file Lifestyle Physical activity Days per week: Not on file Minutes per session: Not on file Stress: Not on file Relationships Social connections Talks on phone: Not on file Gets together: Not on file Attends oriental orthodox service: Not on file Active member of club or organization: Not on file Attends meetings of clubs or organizations: Not on file Relationship status: Not on file Intimate partner violence Fear of current or ex partner: Not on file Emotionally abused: Not on file Physically abused: Not on file Forced sexual activity: Not on file Other Topics Concern Not on file Social History Narrative Not on file Family History Problem Relation Age of Onset Cancer Mother breast, brain Lymphoma Mother Hodgkin's Brain cancer Brother Lymphoma Brother Current Outpatient Medications: ALPRAZolam (XANAX) 1 MG tablet, Take 0.5 mg by mouth 2 times daily., Disp: , Rfl: atorvaSTATin (LIPITOR) 40 mg tablet, Take 40 mg by mouth nightly., Disp: , Rfl: 0 cyclobenzaprine (FLEXERIL) 10 mg tablet, Take 1 tablet by mouth Twice daily as needed ., Disp: , Rfl: diclofenac (VOLTAREN) 50 mg EC tablet, Take 1 tablet by mouth 2 times daily., Disp: , Rfl: divalproex (DEPAKOTE ER) 500 mg 24 hr tablet, Take 500 mg by mouth Daily., Disp: , Rfl : DULoxetine (CYMBALTA) [address] capsule, Take 30 mg by mouth Daily., Disp: , Rfl: fish oil 1,000 mg capsule, Take 2,000 mg by mouth nightly., Disp: , Rfl: hydrOXYzine hydrochloride (ATARAX) 25 mg tablet, Take 25 mg by mouth every 6 hours as needed., Disp: , Rfl: Loratadine 10 MG CAPS, Take 10 mg by mouth Daily., Disp: , Rfl: Multiple Vitamin (MULTI-VITAMIN PO), Take 1 tablet by mouth Daily., Disp: , Rfl: oxybutynin (DITROPAN-XL) 10 MG 24 hr tablet, Take 1 tablet by mouth Daily. (Patient ta cyrus differently: Take 20 mg by mouth Daily.), Disp: 30 tablet, Rfl: 5 oxyCODONE (ROXICODONE) 15 mg immediate release tablet, Take 7.5 mg by mouth EVERY 4 TO 6 HOURS NEEDED., Disp: , Rfl: polyethylene glycol (MIRALAX) powder, Take 17 g by mouth nightly as needed., Disp: , R fl: rOPINIRole (REQUIP) 3 MG tablet, Take 1 tablet by mouth nightly., Disp: , Rfl: tiZANidine (ZANAFLEX) 4 mg tablet, Take 4 mg by mouth 2 times daily., Disp: , Rfl: 0 traZODone (DESYREL) 150 MG tablet, Take 1 tablet by mouth nightly., Disp: , Rfl: Allergies: Allergies Allergen Reactions Codeine Nausea Only Review of Systems: ROS As per HPI, otherwise a 10 point ROS was performed and was negative OBJECTIVE: PHYSICAL EXAM: Vital Signs: BP 117/75 | Pulse 90 | Ht 1.88 m (6' 2") | Wt 88.5 kg (195 lb) | BMI 25.04 kg/m Constitutional: Well-developed, well-nourished, in no apparent distress, appears stated ag e, casually dressed, well-groomed Psychiatric: He has a normal mood and affect. His behavior is normal. Thought content nor mal. HEENT: Normocephalic, atraumatic, neck supple Skin: Skin is warm and dry. No rash or acute lesions noted. He is not diaphoretic. No eryt vincent. No pallor. Pulmonary/Chest: Effort normal. No respiratory distress. Musculoskeletal: Normal tone, no fasciculations or atrophy, CLAIRE negative Neck: Normal range of motion. Neurological: Mentation: Alert and oriented x 3, fluent speech Motor: MMT RIGHT LEFT Comments Iliopsoas (L1 - 2) 5 /5 5 /5 Gluteus fred Gluteus medius Hip external rotators Hip adductors Quadriceps (L3) 5 /5 5 /5 Tib Anterior (L4-5) 5 /5 5 /5 EHL (L5) 5 /5 5 /5 Hamstrings (S1-2) 5 /5 5 /5 Gastrocnemius Ankle eversion Ankle inversion Sitting straight leg raise Normal Normal Positive for tenderness with lumbar extension and rotation provocation maneuvers over the lower lumbar region. Reflexes: Knees 2 /4 2 /4 Ankles 1+ /4 1+ /4 Gait: Antalgic Sensation: LT and pin intact IMAGING STUDIES: Both the films and available radiology reports are personally reviewed. X-ray lumbar spine done on 03/10/2020: No evidence to suggest spondylolisthesis or instability. Degenerative changes throughout t he lumbar spine most pronounced at L4-5 and L5-S1 with both disc and facet degenerative pizarro ges present at these 2 levels. ASSESSMENT and PLAN: ICD-10-CM ICD-9-CM 1. Chronic midline low back pain without sciatica M54.5 724.2 Ambulatory referral to Physi candice Therapy G89.29 338.29 2. Lumbar facet arthropathy M47.816 721.3 Ambulatory referral to Physical Therapy 3. Degenerative disc disease, lumbar M51.36 722.52 Ambulatory referral to Physical Therapy I did discuss: - The patient has complaints of pain that is located in the right and left lower lumbar re gion with occasional radiation to the midline thoracic region as well as over over to the bu ttocks. He states that he will have occasions where he thinks that the pain will cause his knees to buckle. He denies any numbness/tingling in the lower extremities. He reports occa sional weakness in the lower extremities. He finds it hard to go from sitting to standing w ithout pain. - Conservative measures like physical therapy have not been tired recently. Medications t ried are Oxycodone 15 mg immediate release, 4-6 times a day, diclofenac. He has not had ner ve blocks or injections for pain relief. - Lumbar xray shows no evidence to suggest spondylolisthesis or instability. Degenerativ e changes throughout the lumbar spine most pronounced at L4-5 and L5-S1 with both disc and f acet degenerative changes present at these 2 levels. - Referral placed for Physical Therapy to work on lumbar core strengthening and gentle ran ge of motion for 6-8 sessions. Sessions should include therapeutic exercises for strengthen ing/ROM/stability of the spine, core and extremities to improve endurance and ability for ga it and daily activities. Follow Up: to be done in about 6 weeks. We discussed my clinical findings, radiographic studies, and treatment options, including t he risks and benefits in detail. I answered his/her questions. We reviewed treatment option s including, but not limited to, no treatment, continued medical treatment/conservative ghanshyam ures and surgical options. Thank you for allowing us to see Pablito Hollins. Please call me at [phone] with any questions or concerns. Sincerely, ANALY [facility] Note: I spent approximately 45 minutes in efny-yc-fpya time of which greater than 50% was involved in counseling/coordination of care. Portions of this chart may have been created with voice recognition software. Occasional wr janeth-word or "sound-alike" substitutions may have occurred, even after review, due to the inh erent limitations of voice recognition software. Please read the chart carefully and recogni ze, using context, where these substitutions have occurred. Personal communication is reques denton for any clarifications. CC: Darlin Jain MD documented in this encounter Plan of Treatment +--------+ + + + + | Date | Type | Specialty | Care Team | Description | +--------+ + + + + | 02/02/ | Appointment | Radiation Oncology | Brynn Bahena | | | 2020 | | | MD [address]o [address] | | | | | | [place], [place] | | | | | | [address] | | | | | | | | +--------+ + + + + + + +--------+ + + | Name | Type | Priori | Associated Diagnoses | Order Schedule | | | | ty | | | + + +--------+ + + | Ambulatory referral | Outpatient | Routin | Chronic midline | Ordered: 03/29/2020 | | to Physical Therapy | Referral | e | low back pain | | | | | | without sciatica | | | | | | Lumbar facet | | | | | | arthropathy | | | | | | Degenerative disc | | | | | | disease, lumbar | | + + +--------+ + + documented as of this encounter Visit Diagnoses + + | Diagnosis | + + | Chronic midline low back pain without sciatica - Primary | + + | Lumbar facet arthropathy Lumbosacral spondylosis without myelopathy | + + | Degenerative disc disease, lumbar Degeneration of lumbar or lumbosacral | | intervertebral disc | + + documented in this encounter
--- OUTSIDE RECORDS SUMMARY | ~2020-05-08 | XMS | Encounter Summary ---
Demographics + + + | Address | [address] | | | [place] [address] | + + + | Home Phone | | + + + | Preferred Language | Unknown | + + + | Marital Status | Single | + + + | Yazdanism Affiliation | Unknown | + + + | Race | White | + + + | Ethnic Group | Not or | + + + Author + + + | Author | [facility] | | | and [place] | + + + | Organization | [facility] | | | [...] Team Providers + +------+ + | Care Ancillary Services Manager Therapy Name | Role | Phone | + [...] | +--------+ + + + + | 08/16/ | Hospital | [facility] | Shruti Brynn | Prostate Cancer - | | 2017 | Encounter | MED CTR RADIATION | MD Ruchi [address] | Clinical [facility] [place] | | | | [facility]Y CLIN[facility] [address] | [place], [place] | 4+3 carcinoma | | | | [facility] | [phone] | (Primary Dx) | | | | [place] [address] | | | | | | [phone] | | | +--------+ + + + [...] + + + | Blood Pressure | 132/64 | 08/16/2017 2:06 PM | | | | | PST | | + + + + + | Pulse | 83 | 08/16/2017 2:06 PM | | | | | PST | | + + + + + | Temperature | 36.3 C (97.3 F) | 08/16/2017 2:06 PM | | | | | PST | | + + + + + | Respiratory Rate | 16 | 08/16/2017 2:06 PM | | | | | PST | | + + + + + | Oxygen Saturation | 96% | 08/16/2017 2:06 PM | | | | | PST | | + + + + + | Inhaled Oxygen | - | - | | | Concentration | | | | + + + + + | Weight | 89.9 kg (198 lb 3.1 | 08/16/2017 2:06 PM | | | | oz) | PST | | + + + + + | Height | - | - | | + + + + + | Body Mass Index | 25.17 | 07/13/2017 8:39 AM | | | [...] encounter Progress Notes Brynn Willis MD - 08/16/2017 2:09 PM PST Radiation Oncology Weekly On Treatment Note Diagnosis: ICD-10-CM ICD-9-CM 1. Prostate Cancer - Clinical T2c [place] 4+3 carcinoma C61 185 Reason for visit: On treatment evaluation Radiation technical factors: Dose Delivered Dose Planned Fractions Delivered 3200 cGy 6800 cGy Images were reviewed this week and results of the review have been recorded in ARIA. Corre ctions were applied as necessary. Pain assessment: Pain Level: PAIN PROG PAIN LEVEL: 0 Wt Readings from Last 3 Encounters: 09/13/17 90.4 kg (199 lb 4.7 oz) 09/06/17 91 kg (200 lb 9.9 oz) 08/30/17 90.3 kg (199 lb 1.2 oz) BP 132/64 | Pulse 83 | Temp 36.3 C (97.3 F) | Resp 16 | Wt 89.9 kg (198 lb 3.1 oz) | SpO2 96% | BMI 25.17 kg/m Physical Exam Constitutional: He appears well-developed and well-nourished. Neurological: He is alert. Psychiatric: He has a normal mood and affect. Physician Assessment: Pablito continues to do very well with radiation treatment. Mild Urinary irritation with inc reased frequency and urgency, not requiring medication. Moderate fatigue. Bowels regular. Toxicities reviewed in nursing note. Disposition: Continue radiation treatment as planned. Brynn Joshi MD Radiation Oncologist Maria Victoria Kenny RN - 08/16/2017 2:08 PM PST 08/16/17 1407 General Disorders and Administration Site Conditions Fatigue 2 - Grade 2 Renal and Urinary Urinary Tract Pain 1 - Grade 1 Performance Status Karnofsky Performance Score 70% documented in this en counter Plan of [...] [place] | | | | | | [id number] | | | | | | | | +--------+ + + + + documented as of this encounter Visit Diagnoses + + | Diagnosis | + + | Prostate Cancer - Clinical T2[facility] [place] 4+3 carcinoma - Primary Malignant neoplasm of | | prostate | + + documented in this encounter"
--- OUTSIDE RECORDS SUMMARY | ~2020-05-08 | XMS | Encounter Summary ---
Demographics + + + | Address | [address] | | | [place] [address] | + + + | Home Phone | | + + + | Preferred Language | Unknown | + + + | Marital Status | Single | + + + | Mandaeism Affiliation | Unknown | + + + [...] Team Providers + +------+ + | Care Gluing Machine Feeder Name | Role | Phone | + +------+ + | Pranav Auguste MD | PCP | | + +------+ + Encounter Details +--------+ + + + + | Date | Type | Department | Care Team | Description | +--------+ + + + + | 09/06/ | [facility] | [facility] | Brynn Bahena | Prostate Cancer - | | 2017 | Encounter | MED CTR RADIATION | MD Ruchi [address] | Clinical T2c [place] | | | | ON[facility]OGY CLINIC [address] | [place], [place] | 4+3 carcinoma | | | | [address] | [id number] | (Primary Dx) | | | | [place] [address] | | | | | | [phone] | | | +--------+ + + + [...] + | Blood Pressure | 118/62 | 09/06/2017 2:55 PM | | | | | PST | | + + + + + | Pulse | 72 | 09/06/2017 2:55 PM | | | | | PST | | + + + + + | Temperature | 36.1 C (97 F) | 09/06/2017 2:55 PM | | | | | PST | | + + + + + | Respiratory Rate | 16 | 09/06/2017 2:55 PM | | | | | PST | | + + + + + | Oxygen Saturation | 98% | 09/06/2017 2:55 PM | | | | | PST | | + + + + + | Inhaled Oxygen | - | - | | | Concentration | | | | + + + + + | Weight | 91 kg (200 lb 9.9 | 09/06/2017 2:55 PM | | | | oz) | PST | | + + + + + | Height | - | - | | + + + + + | Body Mass Index | 25.48 | 07/13/2017 8:39 AM | | | [...] documented as of this encounter Progress Notes Trell Arthur RN - 09/06/2017 2:55 PM PSTFormatting of this note might be different fro m the original. 09/06/17 1454 Gastrointestinal Constipation 0 - Grade 0 Diarrhea 0 - Grade 0 Nausea 0 - Grade 0 Vomiting 0 - Grade 0 General Disorders and Administration Site Conditions Fatigue 1 - Grade 1 Performance Status Karnofsky Performance Score 80% Brynn Titus MD - 09/06/2017 2:51 PM PST Radiation Oncology Weekly On Treatment Note Diagnosis: ICD-10-CM ICD-9-CM 1. Prostate Cancer - Clinical T2c [place] 4+3 carcinoma C61 185 Reason for visit: On treatment evaluation Radiation technical factors: Dose Delivered Dose Planned Fractions Delivered 6000 cGy 6800 cGy Images were reviewed this week and results of the review have been recorded in ARIA. Corre ctions were applied as necessary. Pain assessment: Location: 0 Pain Level: 0 Pain Quality: 0 Current pain regimen: 0 Wt Readings from Last 3 Encounters: 09/13/17 90.4 kg (199 lb 4.7 oz) 09/06/17 91 kg (200 lb 9.9 oz) 08/30/17 90.3 kg (199 lb 1.2 oz) BP 118/62 | Pulse 72 | Temp 36.1 C (97 F) (Temporal) | Resp 16 | Wt 91 kg (200 lb 9 .9 oz) | SpO2 98% | BMI 25.48 kg/m Physical Exam Constitutional: He appears well-developed and well-nourished. Neurological: He is alert. Psychiatric: He has a normal mood and affect. Physician Assessment: Pablito is near completion of radiation treatment. He continues to do extremely well. Notes mild fatigue. Mild urinary frequency and urgency, no change in medication needed bowels ar e regular. Toxicities reviewed in nursing note. Disposition: Continue radiation treatment as planned. Brynn Joshi MD Radiation Oncologist documented in thi s encounter Plan of Treatment +--------+ + + + + | Date | Type | Specialty | Care Team | Description | +--------+ + + + + | 02/02/ | Appointment | Radiation Oncology | Brynn Bahena | | | 2020 | | | MD [address] | | | | | | [place] | | | | | | [id number] | | | | | | | | +--------+ + + + + documented as of this encounter Visit Diagnoses + + | Diagnosis | + + | Prostate Cancer - Clinical T2c [place] 4+3 carcinoma - Primary Malignant neoplasm of | | prostate | + + documented in this encounter"
--- OUTSIDE RECORDS SUMMARY | ~2020-05-08 | XMS | Encounter Summary ---
Demographics + + + | Address | [address] | | | [place] [address] | + + + | Home Phone [...] Author + + + | Author | [facility] | | | and [place] | + + + | Organization | [facility] | | | [...] Team Providers + +------+ + | Care Scene Shifter Name | Role | Phone | + +------+ + | Pranav Auguste MD | PCP | | + +------+ + Reason for Visit + + + | Reason | Comments | + + + | Under Treatment | OTV- Prostate | + + + Encounter Details +--------+ + + + + | Date | Type | Department | Care Team | Description | +--------+ + + + + | 08/30/ | Hospital | [facility] | Brynn Bahena | Prostate Cancer - | | 2017 | Encounter | MED CTR RADIATION | MD Ruchi [address] | Clinical T2[facility] [place] | | | | [facility] [address] | [place], [place] | 4+3 carcinoma | | | | [address] | [address] | (Primary Dx) | | | | [place] [address] | | | | | | [phone] | | | +--------+ + + + [...] + + + | Blood Pressure | 134/67 | 08/30/2017 2:13 PM | | | | | PST | | + + + + + | Pulse | 77 | 08/30/2017 2:13 PM | | | | | PST | | + + + + + | Temperature | 36.5 C (97.7 F) | 08/30/2017 2:13 PM | | | | | PST | | + + + + + | Respiratory Rate | 16 | 08/30/2017 2:13 PM | | | | | PST | | + + + + + | Oxygen Saturation | 98% | 08/30/2017 2:13 PM | | | | | PST | | + + + + + | Inhaled Oxygen | - | - | | | Concentration | | | | + + + + + | Weight | 90.3 kg (199 lb 1.2 | 08/30/2017 2:13 PM | | | | oz) | PST | | + + + + + | Height | - | - | | + + + + + | Body Mass Index | 25.28 | 07/13/2017 8:39 AM | | | [...] encounter Progress Notes Brynn Willis MD - 08/30/2017 2:17 PM PST Radiation Oncology Weekly On Treatment Note Diagnosis: ICD-10-CM ICD-9-CM 1. Prostate Cancer - Clinical T2c [place] 4+3 carcinoma C61 185 Reason for visit: On treatment evaluation Radiation technical factors: Dose Delivered Dose Planned Fractions Delivered 5000 cGy 6800 cGy Images were reviewed this week and results of the review have been recorded in [facility]. Corre ctions were applied as necessary. Pain assessment: Location: No Pain Pain Level: PAIN PROG PAIN LEVEL: 0 Wt Readin08/30/17 90.3 kg (199 lb 1.2 oz) BP 134/67 | Pulse 77 | Temp 36.5 C (97.7 F) (Temporal) | Resp 16 | Wt 90.3 kg (199 lb 1.2 oz) | SpO2 98% | BMI 25.28 kg/m Physical Exam Constitutional: He appears well-developed and well-nourished. Neurological: He is alert. Psychiatric: He has a normal mood and affect. Physician Assessment: Pablito continues to do well with radiation treatment. He has mild fatigue. Reports stable urinary urgency and frequency, unchanged from baseline. Denies dysuria. Denies changes in bowel habits. Toxicities reviewed in nursing note. Disposition: Continue radiation treatment as planned. Brynn Joshi MD Radiation Oncologist Ada Pacheco R N - 08/30/2017 2:17 PM PST 08/30/17 1416 Gastrointestinal Constipation 0 - Grade 0 Diarrhea 0 - Grade 0 Nausea 0 - Grade 0 Vomiting 0 - Grade 0 General Disorders and Administration Site Conditions Fatigue 0 - Grade 0 Metabolism and Nutrition Anorexia 0 - Grade 0 Nervous System Peripheral Sensory Neuropathy 0 - Grade 0 Renal and Urinary Urinary Tract Pain 0 - Grade 0 Respiratory Thoracic and Mediastinal Cough 0 - Grade 0 Dyspnea 0 - Grade 0 Epistaxis 0 - Grade 0 Laryngopharyngeal Dysesthesia 0 - Grade 0 Skin and Subcutaneous Tissue Rash Maculo-Papular 0 - Grade 0 Performance Status Karnofsky Performance Score 80% documented in this enc ounter Plan of Treatment +--------+ + + + + | Date | Type | Specialty | Care Team | Description | +--------+ + + + + | 02/02/ | Appointment | Radiation Oncology | Brynn Bahena | | | 2020 | | | MD [address] | | | | | | [place], [place] | | | | | | [id number] | | | | | | | | +--------+ + + + + documented as of this encounter Visit Diagnoses + + | Diagnosis | + + | Prostate Cancer - Clinical T2c [place] 4+3 carcinoma - Primary Malignant neoplasm of | | prostate | + + documented in this encounter"
--- OUTSIDE RECORDS SUMMARY | ~2020-05-08 | XMS | Encounter Summary ---
Demographics + + + | Address | [address] | | | [place] [address] | + + + | Home Phone | | + + + | Preferred Language | Unknown | + + + | Marital Status | Single | + + + | Yarsani Affiliation | Unknown | + + + [...] Team Providers + +------+ + | Care Vacuum Evaporation Operator Name | Role | Phone | + +------+ + | Pranav Auguste MD | PCP | | + +------+ + Reason for Visit + + + | Reason | Comments | + + + | Follow-up | | + + + Encounter Details +--------+ + + + + | Date | Type | Department | Care Team | Description | +--------+ + + + + | 04/09/ | Hospital | [facility] | Brynn Bahena | Prostate Cancer - | | 2018 | Encounter | MED CTR RADIATION | MD Ruchi [address] | Clinical T2c [place] | | | | [facility]Y [facility]IN[facility] [address] | [place], [place] | 4+3 carcinoma | | | | [address] | [address] | (Primary Dx); | | | | [place] [address] | | Urinary tract | | | | [phone] | | infection symptoms; | | | | | | Generalized | | | | | | abdominal pain | +--------+ + [...] + + + | Blood Pressure | 114/65 | 04/09/2019 11:06 AM | | | | | PDT | | + + + + + | Pulse | 74 | 04/09/2019 11:06 AM | | | [...] + + + + | Weight | 88.7 kg (195 lb 8.8 | 04/09/2019 11:06 AM | | | | oz) | PDT | | + + + + + | Height | - | - | | + + + + + | Body Mass Index | 25.8 | 07/31/2018 10:42 AM | | | [...] +---------+ + + | HYDROmorphone | Take 1 tablet by | | 0 | 02/18/20 | | | (DILAUDID) 4 MG | mouth EVERY 4 TO 6 | | | 19 | 0 | | tablet | HOURS NEEDED. | | | | | + + + +---------+ + + documented as of this encounter Progress Notes Brynn Bahena MD - 04/09/2019 11:25 AM PDT Radiation Oncology Follow-up Chief Complaint/ICD10 ICD-10-CM ICD-9-CM 1. Prostate Cancer - Clinical T2c [place] 4+3 carcinoma C61 185 2. Urinary tract infection symptoms R39.9 788.99 3. Generalized abdominal pain R10.84 789.07 History of Present Illness: Prostate Cancer - Clinical T2c [place] 4+3 carcinoma 01/25/2017 Initial Diagnosis Low-intermediate risk prostate cancer. Pathology: Right base, Joya 3+3=6, 2%; Left mid Joya 4+3=7, 51%; Left apex Gleas on 3+4=7, 69%, left transition Gl 3+4=7, 6%. He was started on Bicalutamide preoperatively on 02/03/17 (discontinued prior to radiatio n) 03/30/[address] Martin Initial treatment with prostatectomy. Pathologic stage IIB, pT2c pN0, Joya 3+4=7, involving 20% of gland bilaterally, PNI p resent, Positive apical margin bilaterally, extraprostatic extension indeterminate, negative for SV invasion. Postoperative PSA 0.54. - 09/14/2017 Radiation Therapy Salvage radiation with 68 Gy in 34 fractions on 09/14/17. Pablito Hollins completed radiation 1.5 yrs ago, he returns for routine follow-up. Radiation related symptoms: AUA increased from prior . No hematuria. Frequency, weak stream, slow and incomplete empty and nocuria all increased. No diarrhea, rectal kathy n or bleeding. Disease related symptoms: none. Weight stable. No new focal areas of pain. Chronic lumbar pain. General health: Stable Ongoing frequent abdominal pain, cramping, since prostatectomy. Sherita or GI work-up negative. Presumed intermittent bowel obstructions. Ongoing treatment: none Review of systems: Constitutional: Reports energy is low. Reports occassionl night sweats. Denies high fever s, shaking chills, anorexia, nausea, vomiting, weight loss. Appetite without changes. Ear, Nose, Mouth, Throat: Denies odynophagia, dysphagia, or tinnitus. Cardiovascular: Reports chest pain at times related to anxiety. Reports shortness of breat h at night. Denies shortness of breath, dyspnea on exertion, chest pain, palpitations.. Respiratory: Denies cough, hemoptysis, or sputum production. Gastrointestinal: Reports constant abdominal pain since prostatectomy. Reports occasional c onstipation. Denies diarrhea, melena, or bright red blood per rectum. Genitourinary: Reports burning with urinationDenies hematuria or dysuria. Musculoskeletal: Reports chronic back pain, and general joint pain. Neurologic: Reports numbness in feet. Denies headache, visual changes, Endocrine: Reports swelling in feet. Denies peripheral edema or heat/cold intolerance. Hematologic: Denies spontaneous bruising or bleeding. Integumentary: Denies rash, wounds or other skin concerns. . Note: Pateint here for follow up for prostate cancer. My chart: Declined Pain assessment: Location:chronic back pain, abdominal pain Pain Level: PAIN PROG PAIN LEVEL: 8 Pain Quality: Stable Current pain regimen: dilaudid Questionnaires: IPSS Questionnaire (AUA-7): Over the past month 1) How often have you had a sensation of not emptying your bladder completely after you fi emily urinating? 5 - Almost always 2) How often have you had to urinate again less than two hours after you finished urinatin g? 5 - Almost always 3) How often have you found you stopped and started again several times when you urinated? 4 - More than half the time 4) How difficult have you found it to postpone urination? 3 - About half the time 5) How often have you had a weak urinary stream? 4 - More than half the time 6) How often have you had to push or strain to begin urination? 3 - About half the time 7) How many times did you most typically get up to urinate from the time you went to bed un til the time you got up in the morning? 5 - 5+ times Total score: 0-7 mildly symptomatic 8-19 moderately symptomatic 20-35 severely symptomatic Total: 29 Current Outpatient Medications Medication Sig Dispense Refill ALPRAZolam (XANAX) 2 MG tablet Take 0.5 mg by mouth 2 times daily. 0 atorvaSTATin (LIPITOR) 40 mg tablet Take 40 mg by mouth nightly. 0 DULoxetine (CYMBALTA) [address] capsule Take 60 mg by mouth Daily. fish oil 1,000 mg capsule Take 2,000 mg by mouth nightly. hydrOXYzine hydrochloride (ATARAX) 25 mg tablet Take [...] by mouth nightly as needed. rOPINIRole (REQUIP) 1 mg tablet Take 1 mg by mouth nightly. Three tablets nightly tiZANidine (ZANAFLEX) 4 mg tablet Take 4 mg by mouth 2 times daily. 0 traMADol (ULTRAM) 50 mg tablet Take 100 mg by mouth 4 times daily. 0 traZODone (DESYREL) 150 MG tablet Take 150 mg by mouth nightly. Take 0.5 tab nightly 0 No current facility-administered medications for this visit. Allergies No active allergies Intolerance Allergen Reactions Codeine Nausea Only Vitals: 04/09/19 1106 BP: 114/65 Pulse: 74 Resp: 16 Temp: 36.4 C (97.5 F) Wt Readings from Last 3 Encounters: 04/09/19 88.7 kg (195 lb 8.8 oz) 10/09/18 88.3 kg (194 lb 10.7 oz) 07/31/18 87.3 kg (192 lb 7.4 oz) Physical Exam: General: Healthy appearing man [...] of breat maxime at rest. Abdomen: Soft, mild diffuse tenderness, no bloating, no masses or organomegaly detected. Extremities: Upper and lower extremities warm and well perfused with no upper or lower extr emity edema. Neurologic: Alert, oriented and appropriated in conversation. CN II-IX grossly intact. Moves all 4 extremities normally with normal gait. Psychiatric: Appropriate. Labs: PSA: 04/02/19 0.044 10/03/18 0.071 03/28/18 0.169 12/07/17 0.286postradiation 06/27/17 0.54 04/26/17 0.63 06/27/17 0.54 post prostatectomy 01/11/17 4.23 09/19/16 4.25 Imaging: No recent relevant results. 04/09/2019 12:23 Color, UA Yellow Clarity, UA Clear Specific [place] 1.018 pH, Urine 5.0 Glucose, UA Negative Ketones, UA Trace (A) Protein, UA Negative Blood, UA Negative Bilirubin, UA Negative Nitrite, UA Negative Urobilinogen, Urine Negative Leukocyte esterase, UA Negative WBC UA 0-2 RBC UA 2-5 (A) Squamous epithelial, UA 0-2 BACTERIA UA Negative Mucus, UA Present (A) URINE COMMENT Urine Culture Not... Assessment: ICD-10-CM ICD-9-CM 1. Prostate Cancer - Clinical T2c [place] 4+3 carcinoma C61 185 2. Urinary tract infection symptoms R39.9 788.99 Urinalysis with Microscopic with Culture i f Indicated 3. Generalized abdominal pain R10.84 789.07 Urinalysis with Microscopic with Culture if Ind icated Pablito Hollins is having difficulty with increasing urinary frequency, urgency and marshall bjective incomplete emptying. Post void residual bladder scan performed today indicating no significant urinary retention. He may be developing a urethral stricture post prostatectomy and radiation. He may also be demonstrating overactive bladder. Other etiologies to be rul ed out infection with UA today. We discussed the option of trying oxybutynin. Referral to urology for cystoscopy and possibly urethral dilation also offered. He preferred medication trial at this time. He also continues to have frequent abdominal pain. I advised him to managed constipation w ith stool softeners and drink plenty of water. Bowel rest if pain and bloating return. Pres umed intermittent bowel obstruction. Fortunately, PSA continues to fall, indicating response to radiation. However undetectable amina has not yet been reached. Plan: Follow-up with Dr. Bahena in 6 months. Labs: PSA Imaging: none Medication changes: add oxyutynin Referrals: none Orders Placed This Encounter Procedures Urinalysis with Microscopic with Culture if Indicated LABS - EXTERNAL SCAN Thank you for allowing me to participate in the care of Pablito Hollins. If you should have any questions regarding this evaluation, please do not hesitate to contact me. Brynn Bhaena M.D. Radiation Oncologist Department of Radiation Oncology [facility] Office: [phone] documented in this encounter Plan of Treatment +--------+ + + + + | Date | Type | Specialty | Care Team | Description | +--------+ + + + + | 02/02/ | Appointment | Radiation Oncology | Brynn Bahena | | | 2020 | | | MD [address] | | | | | | [place], [place] | | | | | | [...] | LABS - EXTERNAL SCAN | | 04/02/2019 | | Results for this | | | | 12:00 AM | | procedure are in the | | | | PDT | | results section. | + +--------+ + + + documented in this encounter Results Urinalysis with Microscopic with Culture if Indicated (04/09/2019 12:23 PM PDT) + + + + + + | Component | Value | Ref Range | Performed | Pathologist | | | | | At | Signature | + + + + + + | Color, | Yellow | Light Yellow, | [facility] | | | Urine | | Yellow, Straw | [facility] | | | | | | MEDICAL | | | | | | CENTER - | | | | | | LABORATORY | | + + + + + + | Clarity, | Clear | Clear | [facility] | | | Urine | | | [facility] | | | | | | MEDICAL | | | | | | CENTER - | | | | | | LABORATORY | | + + + + + + | pH, Urine | 5.0 | 5.0 - 8.0 | [facility] | | | | | | [facility] | | | | | | MEDICAL | | | | | | CENTER - | | | | | | LABORATORY | | + + + + + + | Specific | 1.018 | 1.001 - 1.030 | [facility] | | | [place], | | | [facility] | | | Urine | | | MEDICAL | | | | | | CENTER - | | | | | | LABORATORY | | + + + + + + | Protein, | Negative | Negative | [facility] | | | Urine | | | [facility] | | | | | | MEDICAL | | | | | | CENTER - | | | | | | LABORATORY | | + + + + + + | Blood, | Negative | Negative | [facility] | | | Urine | | | [facility] | | | | | | MEDICAL | | | | | | CENTER - | | | | | | LABORATORY | | + + + + + + | Glucose, | Negative | Negative | [facility] | | | Urine | | | [facility] | | | | | | MEDICAL | | | | | | CENTER - | | | | | | LABORATORY | | + + + + + + | Ketones, | Trace (A) | Negative | [facility] | | | Urine | | | [facility] | | | | | | MEDICAL | | | | | | CENTER - | | | | | | LABORATORY | | + + + + + + | Bilirubin, | Negative | Negative | [facility] | | | Urine | | | [facility] | | | | | | MEDICAL | | | | | | CENTER - | | | | | | LABORATORY | | + + + + + + | Nitrite, | Negative | Negative | [facility] | | | Urine | | | [facility] | | | | | | MEDICAL | | | | | | CENTER - | | | | | | LABORATORY | | + + + + + + | Leukocyte | Negative | Negative | [facility] | | | Esterase, | | | [facility] | | | Urine | | | MEDICAL | | | | | | CENTER - | | | | | | LABORATORY | | + + + + + + | Urobilinoge | Negative | 0.2 mg/dL, 1.0 | [facility] | | | n, Urine | | mg/dL, Negative | [facility] | | | | | | MEDICAL | | | | | | CENTER - | | | | | | LABORATORY | | + + + + + + | White Blood | 0-2 | 0 - 2 /HPF | [facility] | | | Cells, | | | [facility] | | | Urine | | | MEDICAL | | | | | | CENTER - | | | | | | LABORATORY | | + + + + + + | Red Blood | 2-5 (A) | 0 - 2 /HPF | [facility] | | | Cells, | | | [facility] | | | Urine | | | MEDICAL | | | | | | CENTER - | | | | | | LABORATORY | | + + + + + + | Squamous | 0-2 | 0 - 2 /LPF | [facility] | | | Epithelial | | | [facility] | | | Cells, | | | MEDICAL | | | Urine | | | CENTER - | | | | | | LABORATORY | | + + + + + + | Bacteria, | Negative | Negative /HPF | [facility] | | | Urine | | | [facility] | | | | | | MEDICAL | | | | | | CENTER - | | | | | | LABORATORY | | + + + + + + | Mucus, | Present (A) | Negative /LPF | [facility] | | | Urine | | | [facility] | | | | | | MEDICAL | | | | | | CENTER - | | | | | | LABORATORY | | + + + + + + | Urine | Urine Culture Not | | [facility] | | | Comment | Indicated | | [facility] | | | | | | MEDICAL | | | | | | CENTER - | | | | | | LABORATORY | | + + + + + + + + | Specimen | + + | Urine - Urine | | specimen (specimen) | + + + + + + + | Performing | Address | City/State/Zipcode | Phone Number | | Organization | | | | + + + + + | [facility] | [address] | [place], [place] | [phone] | | [facility] | | [address] | | | - LABORATORY | | | | + + + + + LABS - EXTERNAL SCAN (04/02/2019 12:00 AM PDT) + + + | Narrative | Performed At | + + + | Ordered by an | | | unspecified provider. | | + + + documented in this encounter Visit Diagnoses + + | Diagnosis | + + | Prostate Cancer - Clinical T2c [place] 4+3 carcinoma - Primary Malignant neoplasm of | | prostate | + + | Urinary tract infection symptoms | + + | Generalized abdominal pain Abdominal pain, generalized | + + documented in this encounter"
--- OUTSIDE RECORDS SUMMARY | ~2020-05-08 | XMS | Encounter Summary ---
Demographics + + + | Address | [address] | | | [place] [address] | + + + | Home Phone | | + + + | Preferred Language | Unknown | + + + | Marital Status | Single | + + + | Jain Affiliation | Unknown | + + + | Race | White | + + + | Ethnic Group | Not or | + + + Author + + + | Author | [facility] | | | and [place] | + + + | Organization | [facility] | | | [...] Team Providers + +------+ + | Care Implementation Technician Name | Role | Phone | [...] Authorized | | Neurosurgery | Diagnoses | Darlin Jain | [facility] | | | | | Lumbago | MD [address] | Neurosurgery | | | | | with | [address] | [address] | | | | | sciatica, | [address] | [address] | | | | | left side | [place], | [address] | | | | | Lumbago with | [place] [id number] | [place], [place] | | | | | sciatica, | Phone: | [phone] | | | | | right side | [phone] | Phone: | | | | | lumbar | Fax: | [phone] | | | | | | [phone] | Fax: | | | | | | | [phone] | + +--------+ + + + + Encounter Details +--------+---------+ + + + | Date | Type | Department | Care Team | Description | +--------+---------+ + + + | 05/07/ | Office | [facility] | Jules Simmons, | Chronic midline low | | 2020 | Visit | NEUROSURGERY [address] | [facility] [address] | back pain without | | | | [address] | [address] | sciatica (Primary | | | | [place], [place] | [place] [address] | Dx); Degenerative | | | | [address] | [phone] | disc disease, | | | | [phone] | | lumbar; Lumbar facet | | | | | | arthropathy | +--------+---------+ + + + Social History [...] + + documented in this encounter Progress Notes Jules Simmons ARNP - 05/07/2020 1:20 PM PDTFormatting of this note might be different f rom the original. Neurosurgery Pablito Hollins is a 64 y.o. male seen in consultation at the request of Ruchi Bonner Referring Provider: Darlin Jain MD History Obtained from: Patient Subjective History of Present Illness: Pablito Hollins is a 64 y.o. male seen in follow up for complaints of pain that is loc ated in the right and left lower lumbar region with occasional radiation to the midline thor acic region as well as over over to the buttocks. He states that he will have occasions whe re he thinks that the pain will cause his knees to buckle. He denies any numbness/tingling in the lower extremities. He reports occasional weakness in the lower extremities. He was able to go to PT and completed around 10 sessions with good symptom relief. He is a ble to get in and out of his kayak without difficulty now. He is now able to go from sittin g to standing without pain. Onset: of pain was over 15+ years. Duration: Pain has helped. Pain is always present, intensity varies. Characteristics: The pain is described as aching. Aggravating factors: physical activity. Alleviating factors: medicines. Severity: He rates his pain at its worst Pain scale: 10/10, pain on average Pain scale: 6/10, pain currently Pain scale: 6/10. He can sit, 1-2 hours, stand, 1-2 [...] 01/25/2017 Procedure: US GUIDED BIOPSY - Location: [facility] EXTERNAL IMAGING COLONOSCOPY COLONOSCOPY N/A 07/31/2018 Procedure: COLONOSCOPY; Surgeon: Chencho Barrera MD; Location: [facility] MEDICAL PROCEDURE UNIT LYMPHADENECTOMY PRE-MALIGNANT / BENIGN SKIN LESION EXCISION Left Left groin PROSTATECTOMY N/A 03/30/2017 Procedure: Radical Prostatectomy; Surgeon: Kevin Martin MD; Location: [facility] MAIN OR Social History Socioeconomic History Marital [...] Types: Cigarettes Quit date: 09/17/2018 Years since quittin.6 Smokeless tobacco: Former User Substance and Sexual Activity Alcohol use: No Comment: Quit drinking in 2006 Drug use: No Sexual activity: Not on file Lifestyle Physical activity Days per week: Not on file Minutes per session: Not on file Stress: Not on file Relationships Social connections Talks on phone: Not on file Gets together: Not on file Attends jehovah's witness service: Not on file Active member of [...] Take 1 tablet by mouth Daily. (Patient ember bridges differently: Take 20 mg by mouth Daily.), [...] negative OBJECTIVE: PHYSICAL EXAM: Vital Signs: BP 134/82 | Pulse 87 | Ht 1.88 m (6' 2") | Wt 79.5 kg (175 lb 4.8 oz) | BMI 22.51 kg/m Constitutional: Well-developed, well-nourished, in no apparent [...] /4 Ankles 1+ /4 1+ /4 Gait: Normal Sensation: LT and pin intact int he lower extremities. IMAGING STUDIES: Both the films and available [...] low back pain without sciatica M54.5 724.2 G89.29 338.29 2. Degenerative disc disease, lumbar M51.36 722.52 3. Lumbar facet arthropathy M47.816 721.3 I did discuss: - The patient has [...] from sitting to standing w ithout pain. He was able to go to PT and completed around 10 sessions with good symptom rel ief. He is able to get in and out of his kayak without difficulty now. He is now able to g o from sitting to standing without pain. - Medications tried are Oxycodone 15 mg immediate release, 4-6 times a day, diclofenac. He has not had nerve blocks or injections for pain relief. - Lumbar xray shows no evidence to suggest spondylolisthesis or instability. Degenerativ e changes throughout the lumbar spine most pronounced at L4-5 and L5-S1 with both disc and f acet degenerative changes present at these 2 levels. - The patient is appreciative that he is doing better at this time after going to . He will be traveling to [place], [place] at the end of the month. Follow Up: to be done as needed. We discussed my clinical findings, radiographic studies, and treatment options, including t he risks and benefits in detail. I answered his/her questions. We reviewed treatment option s including, but not limited to, no treatment, continued medical treatment/conservative ghanshyam ures and surgical options. Thank you for allowing us to see Pablito Hollins. Please call me at [phone] with any questions or concerns. Sincerely, ANALY Mistry Neurosurgery [facility] Note: I spent approximately 15 minutes in xyyn-fj-hdlg time of which greater than 50% was [...] [address] | | | | | | [place], [place] | | | | | | [address] | | | | | | | | +--------+ + + + + documented as of this encounter Visit Diagnoses + + | Diagnosis | + + | Chronic midline low back pain without sciatica - Primary | + + | Degenerative disc disease, lumbar Degeneration of lumbar or lumbosacral | | intervertebral disc | + + | Lumbar facet arthropathy Lumbosacral spondylosis without myelopathy | + + documented in this encounter
--- OUTSIDE RECORDS SUMMARY | ~2020-05-08 | XMS | Encounter Summary ---
Demographics + + + | Address | [address] | | | [place] [address] | + + + | Home Phone | | + + + | Preferred Language | Unknown | + + + | Marital Status | Single | + + + | Alevism Affiliation | Unknown | + + + | Race | White | + + + | Ethnic Group | Not or | + + + Author + + + | Author | [facility] | | | and [place] | + + + | Organization | [facility] | | [...] Team Providers + +------+ + | Care Career Orientation Teacher Name | Role | Phone | + +------+ + | Pranav Auguste MD | PCP | | + +------+ + Encounter Details +--------+ + + + + | Date | Type | Department | Care Team | Description | +--------+ + + + + | 07/19/ | Episode | [facility] | Brittany Rapp, | | | 2018 | Changes | GASTROENTEROLOGY | RN | | | | | [address] [place] | | | | | | [address] | | | | | | [address] | | | | | | [phone] | | | +--------+ + + + [...]
--- OUTSIDE RECORDS SUMMARY | ~2020-05-08 | XMS | Encounter Summary ---
Demographics + + + | Address | [address] | | | [place] [address] | + + + | Home Phone | | + + + | Preferred Language | Unknown | + + + | Marital Status | Single | + + + | Rastafari Affiliation | Unknown | + + + | Race | White | + + + | Ethnic Group | Not or | + + + Author + + + | Author | [facility] | | | and [place] | + + + | Organization | [facility] | | [...] Team Providers + +------+ + | Care Ortho Nurse Name | Role | Phone | + +------+ + | Pranav Auguste MD | PCP | | + +------+ + Reason for Visit +--------+--------+ + | Reason | Onset | Comments | | | Date | | +--------+--------+ + | Other | 09/27/ | | | | 2019 | | +--------+--------+ + Encounter Details +--------+ + + + + | Date | Type | Department | Care Team | Description | +--------+ + + + + | 09/27/ | Telephone | [facility] | Brynn Bahena | Other | | 2019 | | [facility] | MD Ruchi [address] | | | | | ONCOLOGY CLINIC [address] | [address] [place], [place] | | | | | [address] | [address] | | | | | [place] [address] | | | | | | [phone] | | | +--------+ + + + [...] Encounter - Maria Victoria Catherine RN - 09/27/2018 1:47 PM PSTOrders faxed and patient notified elephone Loi Kong - 09/27/2018 1:35 PM PSTPt called, would like call back @ [phone] Needs to know if his lab orders have been sent to [facility] in [place]. Thank you documented in this encounter Plan of Treatment +--------+ + + + + | Date | Type | Specialty | Care Team | Description | +--------+ + + + + | 02/02/ | Appointment | Radiation Oncology | Brynn Bahena | | | 2020 | | | MD Marcelo [address] | | | | | | [facility] [place] | | | | | | [id number] | | | | | | | | +--------+ + + + + documented as of this encounter Visit Diagnoses Not on filedocumented in this encounter"
--- OUTSIDE RECORDS SUMMARY | ~2020-05-08 | XMS | Encounter Summary ---
Demographics + + + | Address | [address] | | | [place] [address] | + + + | Home Phone | | + + + | Preferred Language | Unknown | + + + | Marital Status | Single | + + + | Quaker Affiliation | Unknown | + + + | Race | White | + + + | Ethnic Group | Not or | + + + Author + + + | Author | [facility] | | | and [place] | + + + | Organization | [facility] | | [...] Team Providers + +------+ + | Care Crisis Clinician Name | Role | Phone | + +------+ + | Pranav Auguste MD | PCP | | + +------+ + Encounter Details +--------+ + + + + | Date | Type | Department | Care Team | Description | +--------+ + + + + | 04/09/ | Hospital | [facility] | Brynn Bahena | Generalized | | 2019 | Encounter | [facility] | MD Ruchi [address] | abdominal pain; | | | | ONCOLOGY CLINIC [address] | [place], [place] | Urinary tract | | | | [address] | [address] | infection symptoms | | | | [place] [address] | | | | | | [phone] | | | +--------+ + + + [...] | | | | | | [place], [place] | | | | | | [address] | | | | | | | | +--------+ + + + + documented as of this encounter Procedures + +--------+ + + + | Procedure Name | Priori | Date/Time | Associated Diagnosis | Comments | | | ty | | | | + +--------+ + + + | URINALYSIS WITH | Routin | 04/09/2019 | Generalized | Results for this | | MICROSCOPIC WITH | e | 12:23 PM | abdominal pain | procedure are in the | | CULTURE IF INDICATED | | PDT | Urinary tract | results section. | | | | | infection symptoms | | + +--------+ + + + [...] - 1.030 | [facility] | | | [place], | | | [facility] | [...] Urine | Urine Culture Not | | [facility] | | | Comment | Indicated | | [facility] | | | | | | MEDICAL [...] | + + + + + | [address] | [address] | [place] | [phone] | | [facility] | | [address] | | | - LABORATORY | | | | + + + + + documented in this encounter Visit Diagnoses + + | Diagnosis | + + | Generalized abdominal pain Abdominal pain, generalized | + + | Urinary tract infection symptoms | + + documented in this encounter"
--- OUTSIDE RECORDS SUMMARY | ~2020-05-08 | XMS | Encounter Summary ---
Demographics + + + | Address | [address] | | | [place] [address] | + + + | Home Phone | | + + + | Preferred Language | Unknown | + + + | Marital Status | Single | + + + | Baptism Affiliation | Unknown | + + + | Race | White | + + + | Ethnic Group | Not or | + + + Author + + + | Author | [facility] | | | and [place] | + + + | Organization | [facility] | | [...] Team Providers + +------+ + | Care Field Artillery Radar Operator Name | Role | Phone | + +------+ + | Pranav Auguste MD | PCP | | + +------+ + Reason for Visit + + + | Reason | Comments | + + + | Under Treatment | OTV-Prostate | + + + Encounter Details +--------+ + + + + | Date | Type | Department | Care Team | Description | +--------+ + + + + | 08/23/ | Hospital | [facility] | Honorio Johnson DO | Prostate Cancer - | | 2017 | Encounter | [facility] | [address] [facility] | Clinical T2c [facility] | | | | ONCOLOGY CLINIC [address] | [place], [place] | 4+3 carcinoma | | | | [address] | [address] | (Primary Dx) | | | | [place] [address] | | | | | | [phone] | | | +--------+ + + + [...] documented as of this encounter Progress Notes Honorio Johnson DO - 08/23/2017 2:12 PM PST Radiation Oncology Weekly On Treatment Note Diagnosis: ICD-10-CM ICD-9-CM 1. Prostate Cancer - Clinical T2c [facility] 4+3 carcinoma C61 [id number] Reason for visit: On treatment evaluation Radiation technical factors: Dose Delivered Dose Planned Fractions Delivered 4200 cGy 6800 cGy Images were reviewed this week and results of the review have been recorded in [facility]. Corre ctions were applied as necessary. Pain assessment: Location: In/a Pain Level: PAIN PROG PAIN LEVEL: 0 Pain Quality: Stable Current pain regimen: N/a Patient reports some burning with urination for the last couple of weeks. He also reports s ome occasional night sweats since starting radiation. Wt Readings from Last 3 Encounters: 08/16/17 89.9 kg (198 lb 3.1 oz) 08/08/17 92 kg (202 lb 13.2 oz) 08/02/17 94.4 kg (208 lb 1.8 oz) There were no vitals taken for this visit. Physical Exam Constitutional: He is oriented to [...] person, place, and time. He has normal strength. No cranial nerve deficit. Coordination normal. Psychiatric: He has a normal mood and affect. His behavior is normal. Judgment and thought content normal. Cognition and memory are normal. Nursing note and vitals reviewed. Physician Assessment: Overall, he is tolerating treatment well denying any changes in bowel or bladder movements over the past week to 2 weeks. He does admit to periodic night sweats which he states occur approximately every 3-4 weeks and associates this with his furnace. He denies being on and rogen deprivation. Medication review demonstrates that he is taking 50 mg Casodex daily. T oxicities were reviewed. He'll continue treatment as planned. Disposition: Continue radiation treatment as planned. Honorio Johnson DO Radiation Oncologist Ada Pacheco RN - 2:11 PM PST 08/23/17 1410 Gastrointestinal Constipation 0 - Grade 0 Diarrhea 0 - Grade 0 Nausea 0 - Grade 0 Vomiting 0 - Grade 0 General Disorders and Administration Site Conditions Fatigue 1 - Grade 1 Metabolism and Nutrition Anorexia 0 - Grade 0 Nervous System Peripheral Motor Neuropathy 0 - Grade 0 Peripheral Sensory Neuropathy 0 - Grade 0 Renal and Urinary Urinary Tract Pain 1 - Grade 1 Respiratory Thoracic and Mediastinal Cough 0 - Grade 0 Dyspnea 0 - Grade 0 Epistaxis 0 - Grade 0 Performance Status Karnofsky Performance Score 80% documented in this enc ounter Plan of Treatment +--------+ + + + + | Date | Type | Specialty | Care Team | Description | +--------+ + + + + | 02/02/ | Appointment | Radiation Oncology | Brynn Bahena | | | 2020 | | | MD Ruchi [address] | | | | | | [place], [place] | | | | | | [id number] | | | | | | | | +--------+ + + + + documented as of this encounter Visit Diagnoses + + | Diagnosis | + + | Prostate Cancer - Clinical T2c Joya 4+3 carcinoma - Primary Malignant neoplasm of | | prostate | + + documented in this encounter"
--- OUTSIDE RECORDS SUMMARY | ~2020-05-08 | XMS | Encounter Summary ---
Demographics + + + | Address | [address] | | | [place] [address] | + + + | Home Phone [...] Author + + + | Author | [facility] | | | and [place] | + + + | Organization | [facility] | | | [...] Team Providers + +------+ + | Care Hot Mill Shearer Name | Role | Phone | + [...] | +--------+ + + + + | 10/09/ | Hospital | [facility] | Brynn Bahena | Prostate Cancer - | | 2019 | Encounter | MED CTR RADIATION | MD Ruchi [address] | Clinical T2c [place] | | | | ONCOLOGY CLINIC [address] | [place], [place] | 4+3 carcinoma | | | | [address] | [address] | (Primary Dx) | | | | [place] [address] | | | | | | [phone] | | | +--------+ + + + [...] + + + | Blood Pressure | 125/64 | 10/09/2018 10:33 AM | | | | | PST | | + + + + + | Pulse | 80 | 10/09/2018 10:33 AM | | | | | PST | | + + + + + | Temperature | 36.6 C (97.9 F) | 10/09/2018 10:33 AM | | | | | PST | | + + + + + | Respiratory Rate | 16 | 10/09/2018 10:33 AM | | | | | PST | | + + + + + | Oxygen Saturation | 98% | 10/09/2018 10:33 AM | | | | | PST | | + + + + + | Inhaled Oxygen | - | - | | | Concentration | | | | + + + + + | Weight | 88.3 kg (194 lb 10.7 | 10/09/2018 10:33 AM | | | | oz) | PST | | + + + + + | Height | - | - | | + + + + + | Body Mass Index | 25.68 | 07/31/2018 10:42 AM | | | [...] encounter Progress Notes Brynn Bahena MD - 10/09/2018 9:04 AM PST Radiation Oncology Follow-up Chief Complaint/ICD10 ICD-10-CM ICD-9-CM 1. Prostate Cancer - Clinical T2c Joya 4+3 carcinoma C61 185 History of Present Illness: Prostate Cancer - Clinical T2c [place] 4+3 carcinoma 03/29/2017 Initial Diagnosis Low-intermediate risk prostate cancer. Pathologic stage IIB, pT2c pN0, [place] 3+4=7, inv olving 20% of gland bilaterally, PNI present, Positive apical margin bilaterally, extraprost atic extension indeterminate, negative for SV invasion. He was initially treated prostatecto my with postoperative PSA 0.54. Completed salvage radiation with 68 Gy in 34 fractions on . - Last seen in March 2018. Referred to GI for work-up of intermittent abdominal pain, nausea , vomiting and alternating diarrhea and constipation. - 06/06/18 CT Abd/pelvis requested by Dr. Barrera did not demonstrate any evidence of malignan cy or explanation for bowel symptoms. Left adrenal nodule noted. - Colonoscopy on 07/31/18 removed 3 small polyps and was otherwise normal. -Continues to have some abdominal pain and constipation. Bowels are less bothersome. Symp toms felt to be related to intermittent small bowel obstruction. No acute events recently. -Today, Pablito is pleased to report that he quit smoking as of the New Year! - AUA score remains moderated at 16, pre-treatment baseline was severe at 25. Denies any si gnificant lasting side effects of radiation, specifically no hematuria or dysuria. Denies u rinary incontinence. -Reports good appetite, stable weight and no new focal areas of muscular skeletal pain. Co ntinues on chronic narcotics for chronic back pain. Review of systems: Constitutional: Reports night sweats. Denies fatigue. Denies high fevers, shaking chills, anorexia, nausea, vomiting, weight loss. Appetite without changes. Ear, Nose, Mouth, Throat: Denies odynophagia, dysphagia, or tinnitus. Cardiovascular: Reports shortness of breath with activity. Denies chest pain, palpitations or orthopnea. Respiratory: Denies cough, hemoptysis, or sputum production. Gastrointestinal: Reports abdominal pain since prostatectomy related to constipation at [facility]. Denies diarrhea, melena, or bright red blood per rectum. Genitourinary: Denies hematuria or dysuria. Musculoskeletal: Reports chronic back pain and general joint pain. Neurologic: Denies headache, visual changes, or numbness/tingling of the extremities. Endocrine: Denies peripheral edema or heat/cold intolerance. Hematologic: Denies spontaneous bruising or bleeding. Integumentary: Denies rash, wounds or other skin concerns. Pain assessment: Location: chronic back pain Pain Level: PAIN PROG PAIN LEVEL: 8 Pain Quality: Constant Current pain regimen: percocet every 4 hours for pain Questionnaires: IPSS Questionnaire (AUA-7): Over the past month 1) How often have you had a sensation of not emptying your bladder completely after you fi emily urinating? 2 - Less than half the time 2) How often have you had to urinate again less than two hours after you finished urinatin g? 4 - More than half the time 3) How often have you found you stopped and started again several times when you urinated? 3 - About half the time 4) How difficult have you found it to postpone urination? 2 - Less than half the time 5) How often have [...] you got up in the morning? 4 - 4 times Total score: 16 0-7 mildly symptomatic 8-19 moderately symptomatic 20-35 severely symptomatic Current [...] Intolerance Allergen Reactions Codeine Nausea Only Vitals: 10/09/18 1033 BP: 125/64 Pulse: 80 Resp: 16 Temp: 36.6 C (97.9 F) Wt Readings from Last 3 Encounters: 10/09/18 88.3 kg (194 lb 10.7 oz) 07/31/18 87.3 kg (192 lb 7.4 oz) 05/22/18 87.4 kg (192 lb 10.9 oz) Physical Exam: General: Healthy appearing Man in no acute medical distress. KPS: 90 HEENT: Pupils equal, round and reactive to light. No conjunctival icterus or injection. EOM I. Oral, moist mucus membranes. Lymphatic: No cervical, supraclavicular or axillary lymphadenopathy. Cardiovascular: Regular rate and rhythm, no murmur. Pulmonary: Breath sounds heard throughout, no adventitial sounds or increased work of breat maxime at rest. Extremities: Upper and lower extremities warm and well perfused with no upper or lower extr emity edema. Neurologic: Alert, oriented and appropriated in conversation. CN II-IX grossly intact. Moves all 4 extremities normally with normal gait. Psychiatric: Appropriate. Labs: PSA: 10/03/18 0.071 03/28/18 0.169 12/07/17 0.286 postradiation 06/27/17 0.54 04/26/17 0.63 10/11/17 0.54 post prostatectomy 01/11/17 4.23 09/19/16 4.25 Imaging: ENHANCED CT ABDOMEN AND PELVIS 06/06/2018 10:36 AM ABDOMEN FINDINGS: Imaged lung bases are unremarkable. Localized right-sided pericardial c alcification is suggested. Imaged mediastinum is otherwise unremarkable. The liver, gallbl adder, spleen, pancreas, and right adrenal gland are unremarkable. A 1.3 cm nodule is prese nt in the left adrenal gland and is difficult to further characterize. Few small rounded hy podensities in The kidneys favor cysts and measure up to 10 mm superiorly on the left. No nephroureterolithiasis or hydroureteronephrosis is evident. Gas and dependent fluid favorin g oral contrast are present within the nondilated right colon, along with nondilated small b owel throughout the abdomen. Gas and a small volume of stool are present in the nondilated left colon and rectum. The appendix is surgically absent. The stomach is unremarkable. No free air, ascites, pathologic lymph node enlargement or hernia is evident. There is extens loren aortoiliac calcification with mild aneurysmal dilation of the distal aorta to a diameter of 3.4 cm. Abdominal vasculature is otherwise unremarkable. There is leftward lumbar curv ature with multilevel degenerative disc disease, spondylosis and variable stenosis. PELVIS FINDINGS: The prostate appears to be absent. The bladder is mostly decompressed an d otherwise grossly unremarkable. No free air, free fluid, pathologic lymph node enlargemen t, or hernia is evident. There is a stable tiny sclerotic focus in the right pubis, favorin g a bone island. Bones and soft tissues are otherwise unremarkable. IMPRESSION - 1. NO CONCLUSIVE EVIDENCE OF METASTATIC DISEASE IN THE ABDOMEN OR PELVIS. 2. NO EVIDENCE OF BOWEL OBSTRUCTION OR VISIBLE INFLAMMATION. 3. ATHEROSCLEROSIS AND ANEURYSMAL DILATION OF THE DISTAL AORTA TO A DIAMETER OF 3.4 CM. 4. INDETERMINATE 1.3 CM LEFT ADRENAL NODULE. CONSIDER FOLLOW-UP UNENHANCED AND ENHANCED A DRENAL CT IF FURTHER CHARACTERIZATION IS DESIRED. Dictated and Signed by: Ramsey Jones MD Assessment: ICD-10-CM ICD-9-CM 1. Prostate Cancer - Clinical T2c Joya 4+3 carcinoma C61 185 PSA, Diagnostic Pablito completed salvage radiation just over 1 year ago. He has minimal chronic side effect s from surgery and radiation. Seems to intermittently develop adhesions or small bowel obst ruction, and continues to have some bowel irritability though tends towards constipation. Rose carbajal has chosen some minor dietary modifications, to manage symptoms. Overall the symptoms are improving, and he has not had any acute events in the last 6 months. He is not experiencin g any urinary side effects. PSA continues to trend downward. No evidence of disease activi ty clinically. Plan: -Follow-up with me in 6 months needed. PSA check at that time. -Continue follow-up with Dr. Martin as directed. Orders Placed This Encounter Procedures PSA, Diagnostic Thank you for allowing me to participate in the care of Pablito Hollins. If you should have any questions regarding this evaluation, please do not hesitate to contact me. Brynn Bahena M.D. Radiation Oncologist Department of Radiation Oncology [facility] Office: [phone] CC: Patient Care Team: Pranav Auguste MD as PCP - General (Family Medicine) Brynn Bahena MD as Physician (Radiation Oncology) Kevin Martin MD as Physician (Urology) Naveed Leonard MD (Specialist/Technologist,Other - Wire Fence Erector) documented in this encounter Plan of Treatment +--------+ + + + + | Date | Type | Specialty | Care Team | Description | +--------+ + + + + | 02/02/ | Appointment | Radiation Oncology | Brynn Bahena | | | 2020 | | | MD [address] | | | | | | [place] | | | | | | [address] | | | | | | | | +--------+ + + + + + +------+--------+ + + | Name | Type | Priori | Associated Diagnoses | Order Schedule | | | | ty | | | + +------+--------+ + + | PSA, Diagnostic | Lab | Routin | Prostate Cancer - | 1 Occurrences | | | | e | Clinical T2c [place] | starting 10/09/2018 | | | | | 4+3 carcinoma | until 10/09/2019 | + +------+--------+ + + documented as of this encounter Procedures + +--------+ + + + | Procedure Name | Priori | Date/Time | Associated Diagnosis | Comments | | | ty | | | | + +--------+ + + + | LABS - EXTERNAL SCAN | | 10/03/2018 | | Results for this | | | | 12:00 AM | | procedure are in the | | | | PST | | results section. | + +--------+ + + + documented in this encounter Results LABS - EXTERNAL SCAN (10/03/2018 12:00 AM PST) + + + | Narrative | Performed At | + + + | Ordered by an | | | unspecified provider. | | + + + documented in this encounter Visit Diagnoses + + | Diagnosis | + + | Prostate Cancer - Clinical T2c [place] 4+3 carcinoma - Primary Malignant neoplasm of | | prostate | + + documented in this encounter"
--- OUTSIDE RECORDS SUMMARY | ~2020-05-08 | XMS | Encounter Summary ---
Demographics + + + | Address | [address] | | | [place] [address] | + + + | Home Phone | | + + + | Preferred Language | Unknown | + + + | Marital Status | Single | + + + | Scientology Affiliation | Unknown | + + + [...] Team Providers + +------+ + | Care Graduate Rn Name | Role | Phone | + +------+ + | Pranav Auguste MD | PCP | | + +------+ + Encounter Details +--------+ + + + + | Date | Type | Department | Care Team | Description | +--------+ + + + + | 07/13/ | Hospital | [facility] | Brynn Bahena | | | 2017 | Encounter | MED CTR RADIATION | MD [address]uchi [address] | | | | | [address]OGY [address] [place], [place] | | | | | [place], | [address] | | | | | [place] [address] | | | | | | [phone] | | | +--------+ + + + [...] | | | MD Ruchi [address] | | | | | | [place] | | | | | | [address] | | | | | | | | +--------+ + + + + documented as of this encounter Visit Diagnoses Not on filedocumented in this encounter"
--- OUTSIDE RECORDS SUMMARY | ~2020-05-08 | XMS | Encounter Summary ---
Demographics + + + | Address | [address] | | | [place] [address] | + + + | Home Phone | | + + + | Preferred Language | Unknown | + + + | Marital Status | Single | + + + | Zoroastrian Affiliation | Unknown | + + + | Race | White | + + + | Ethnic Group | Not or | + + + Author + + + | Author | [facility] | | | and [place] | + + + | Organization | [facility] | | | [...] Team Providers + +------+ + | Care Pelt Grader Name | Role | Phone | + [...] | | | | Malignant | | [address] | | | | | neoplasm of | | Phone: | | | | | prostate | | [phone] | | | | | (HCC) [C61] | | Fax: | | | | | Procedures | | [phone] | | | | | TX REMV | | | | | | | PROSTATE,RET | | | | | | | FEDE CHENTO | | | | | | | T NODES | | | +--------+--------+ + + + + Encounter Details +--------+---------+ + + + | Date | Type | Department | Care Team | Description | +--------+---------+ + + + | 03/30/ | Surgery | [facility] | Kevin Martin MD | Radical | | 2017 | | MED CTR OR INTRA OP | [address] | Prostatectomy | | | | [address] | [place] | | | | | [place] | [address] | | | | | [address] | [phone] | | | | | [phone] | | | +--------+---------+ + + + [...] + + + | Blood Pressure | 129/62 | 03/30/2017 11:45 AM | | | | | PDT | | + + + + + | Pulse | 80 | 03/30/2017 11:45 AM | | | | | PDT | | + + + + + | Temperature | 36.7 C (98.1 F) | 03/30/2017 11:15 AM | | | | | PDT | | + + + + + | Respiratory Rate | 15 | 03/30/2017 11:45 AM | | | | | PDT | | + + + + + | Oxygen Saturation | 98% | 03/30/2017 11:45 AM | | | | | PDT [...] Admitting Physician: Kevin Martin MD PCP: Physician Phani PA Discharging Physician: Kevin Martin Consultants: Primary Discharge Dx: Clinical T2c moderately differentiated prostate carcinoma Patient Active Problem List Diagnosis Depression with anxiety - Anxiolytic Use Prostate Cancer - Clinical T2c [place] 4+3 carcinoma Nodular prostate with urinary obstruction [...] Intake/Output Summary (Last 24 hours) at 04/01/17 07 Last data filed at 04/01/17 0535 Gross [...] Electronically signed by: Kevin Martin, 04/01/2017 7:28 [facility] documented in this enc ounter Discharge [...] | 0 | //20 | | | (LIPITOR) 40 mg | [...] | | | mg per tablet | 05-23- | | | | | + + [...] Signed by: Kevin Martin MD, 03/31/2017 7:16 [facility] MD at [...] measured a 22 cc gland. Clinical T2c [place] 4+3 carcinoma is recovered with dominant d [...] 1/2 tablet up to BID PRN; Therapy: [id number] to Recorded Atorvastatin Calcium 40 MG Oral Tablet; take 1 tablet by mouth daily; Therapy: 05Jan2017 to Recorded Bicalutamide 50 MG Oral Tablet; TAKE 1 TABLET DAILY; Therapy: 03Feb2017 to (Evaluate:[id number]) Requested for: 03Feb2017; Last Rx:03Feb2017 Ordered ClonazePAM 1 MG Oral Tablet; take 1 tablet by mouth at bedtime; Therapy: 11Jan2017 to (Evaluate:[id number]) Recorded Daily Multiple Vitamins Oral Tablet; TAKE 1 TABLET DAILY; Therapy: 05Jan2017 to Recorded Fish Oil 1000 MG Oral Capsule; Take 2 capsule qhs; Therapy: 05Jan2017 to Recorded Hydrocodone-Acetaminophen 10-325 MG Oral Tablet; TAKE 1 TABLET EVERY 4 HOURS NEEDED FOR PAIN; Therapy: 26Mar2017 to (Evaluate:[id number]) Recorded Loratadine 10 MG Oral Tablet; TAKE 1 TABLET DAILY NEEDED; Therapy: 11Jan2017 to (Evaluate:[id number]) Recorded TiZANidine HCl - 4 MG Oral [...] and CBC on 02/06/17. Echocardiogram 03/08/17 at [facility] reports normal left ventricle with ejection fraction [...] pain 04/26 treating with scheduled meds and [place] x 2 during shift. 37 mL of [...] able to make needs known. Phan c/o 8/10 pain to his lower back; medicated w/1 tab [place] (5's) PRN. JUANITO drained 25mL sero-sanguineous fluid this shift. lan of Care - Brisa Nesbitt RN - 03/30/2017 8:56 PM PDTProblem: Patient Care Overview (Adult) Goal: Care Team Goals & Evaluation PROBLEM-RELATED GOALS: 1. Prevent post operative hypoxia 2. Phan will report adequate pain control 8 by 04/02/17. 3. Phan will void <120 [...] to safely transfer patient from bed to [facility]. LSC on 2L, HRR w/murmer, bowel tones hypoactive . Escobar in place collecting adequate amounts of urine during shift. Complains of back pain, treating with scheduled Toradol, Neurontin and PRN [place] as needed. Ambulating CGA/Minimum assist w/FWW, walked out into the hallways once and was up in chair for the remainder of the evening. JUANITO drain collected 5 ml of sanguinous drainage. Dressing to abdomen is CDI. Call light within reach, no falls or injuries. lan of Care - Wojciech Stewart RRT - 03/30/2017 2:05 PM PDTProblem: Patient Care [...] note might be different from the origin al. [facility] OPERATIVE NOTE Pt. Name/Age/: Pablito Hollins 61 y.o. 1955 Med. Record Number: [id number] Date of admission: 03/30/2017 Date of Operation/Procedure: 03/30/2017 Preoperative Diagnosis: Clinical T2c moderately differentiated prostate carcinoma (HCC) [C 61] Post-Op Diagnosis Codes: * Malignant neoplasm of prostate (HCC) [C61] Postoperative Diagnosis: Same Surgeon: Kevin Martin MD Brush Or Broom Cutter(s): Kevin Butler MD Anesthesia Provider(s): Anesthesiologist: Iron Salcido MD [place] Operator: Brisa Weeks, Johnologist Anesthesia Type: General Procedure(s): Bilateral iliac and obturator lymphadenectomy Radical Retropubic Prostatectomy Operative Indications: Pablito Hollins is a 61 y.o. year old male with [place] 4+3 ca rcinoma predominantly in the left [...] neck tapering was performed with a single [id number] 0 chromic . A Andujar sound was advanced per urethra. 3-0 Monocryl was introduced to the urethra at th e 5:00, 3:00, 1:00, 11:00, 9:00 and 7:00 positions and transferred to the bladder neck in th e same orientation. Andujar sound was removed. A new 20 Tuvaluan Escobar catheter was introduc ed to the bladder. The bladder was drawn down to the urethra, and anastomotic sutures tied. The bladder was irrigated noting watertight junction. A 15 Tuvaluan Tylor drain was introdu arpan through a separate lower quadrant incision and secured to the skin with Vicryl. Rectus fascia was closed with a single length of #0 looped PDS. Hoa's was closed with Vicryl fo llowed by Monocryl skin closure. Dressings were applied. Estimated Blood Loss: 200 cc Transfused: no Drains: 20 Fr Escobar, 15 Tuvaluan round drain in the retropubic space Specimen (s): ID Type Source Tests Collected by Time Destination A : right iliac obturator lymph node Kevin Martin MD 03/30/2017 0846 Pathology B : left iliac obturator lymph node Kevin Martin MD 03/30/2017 0856 Pathology C : prostate Kevin Martin MD 03/30/2017 1007 Pathology Complications: none Electronically Signed by: Kevin Martin MD, 03/30/2017 11:53 [facility] of Care - Mauricio Mckeon Chaplain - 03/30/2017 7:56 AM PDT Spiritual Care Pablito Hollins is a 61 y.o. 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 Spiritual Evaluation: No zoroastrianism preference. Spiritual Intervention: Pastoral support and prayer [...] [address] | | | | | | [place], [place] | | | | | | [address] | | | | | | | [...] ST. | [address] | [place] | | | [facility] | | [address] | | | - BLOOD BANK | [...] Adenocarcinoma, acinar type. | | | - [place] score: 3+4 = 7. - Grade group: [...] apex. As part of | | | [employer]' Quality Improvement Program, this case was | | | reviewed by another member of our pathology staff. CLR:DANA:[facility]:C1NR | | | GROSS DESCRIPTION: A. The [...] The prostate is serially sectioned with sales account representative sections | | | submitted in twenty [...] left vas deferens margin | | | [facility] MICROSCOPIC EXAMINATION: Histologic sections of all | | | submitted blocks are examined by light microscopy. These findings, | | | together with the gross examination, support the pathologic diagnosis. | | | PERFORMING LABORATORY: Tissue processing and slide preparation were | | | performed by [facility], [address] [place] [address], [facility] | | | [place] [address] (Drug Regulatory Affairs Specialist: Fred Warner M.D.; CLIA#: | | | [id number]). Professional interpretation was performed by [facility] | | | [facility], [facility], [address], [place] [address] | | | (Drug Regulatory Affairs Specialist: Fred Warner M.D.; CLIA#: [id number]). | | | Diagnostician: Pranav Riley MD [...] + | Diagnosis | + + | Malignant neoplasm of prostate (HCC) Malignant neoplasm of prostate | + [...]
--- OUTSIDE RECORDS SUMMARY | ~2020-05-08 | XMS | Encounter Summary ---
Demographics + + + | Address | [address] | | | [place] [address] | + + + | Home Phone [...] + + + | Author | [facility] | | | and [place] | + + + | Organization | [facility] | | [...] Providers + +------+ + | Care Head Animal Trainer Name | Role | Phone | + +------+ + | Pranav Auguste MD | PCP | | + +------+ + Reason for Visit + +--------+ + | Reason | Onset | Comments | | | Date | | + +--------+ + | Medication Follow-up | 04/14/ | | | | 2019 | | + +--------+ + Encounter Details +--------+ + + + + | Date | Type | Department | Care Team | Description | +--------+ + + + + | 04/14/ | Telephone | [facility] | Brynn Bahena | Medication Follow-up | | 2019 | | MED CTR MEDICAL | MD Ruchi [address] | | | | | ONCOLOGY CLINIC [address] | [place], [place] | | | | | [facility] | [address] | | | | | [place] [address] | | | | | | [phone] | | | +--------+ + + + [...] Encounter - Maria Victoria Catherine RN - 04/15/2019 9:06 AM PDTDr. Bahena mentioned or dering this med for patient in her result note, but I do not see that it was ordered. Would you be willing to order this in her absence. He would like this RX [facility] [place] [facility] - 04/14/2019 4:27 PM PDTJames called stating that Dr. Bahena was going to prescribe him something for his Overactive bladder but hasn't received anything yet. Pl ease call into the [facility] pharmacy, thank you. documented in this encounter Plan of Treatment +--------+ + + + + | Date | Type | Specialty | Care Team | Description | +--------+ + + + + | 02/02/ | Appointment | Radiation Oncology | Brynn Bahena | | | 2020 | | | MD [address] | | | | | | [place], [place] | | | | | | [address] | | | | | | | | +--------+ + + + + documented as of this encounter Visit Diagnoses Not on filedocumented in this encounter"
--- OUTSIDE RECORDS SUMMARY | ~2020-05-08 | XMS | Encounter Summary ---
Demographics + + + | Address | [address] | | | [place] [address] | + + + | Home Phone | | + + + | Preferred Language | Unknown | + + + | Marital Status | Single | + + + | Jehovah'S Witness Affiliation | Unknown | + + + | Race | White | + + + | Ethnic Group | Not or | + + + Author + + + | Author | [facility] | | | and [place] | + + + | Organization | [facility] | | | [...] Team Providers + +------+ + | Care Plating Inspector Name | Role | Phone | + [...] + + | Closed | Specialty | Urology | Diagnoses | Shruti | Zana | | | Services | | Prostate | Brynn Hopper, | Rosemarie Arshad, | | | Required | | cancer (HCC) | [address] | | | | | [address] | [place] | | | | | | [place], | [place], [place] | | | | | | [place] [address] | [address] | | | | | | Phone: | Phone: | | | | | | [phone] | [phone] | | | | | | Fax: | Fax: | | | | | | [phone] | [phone] | +--------+ + + + + + Reason for Visit +--------+--------+ + | Reason | Onset | Comments | | | Date | | +--------+--------+ + | Other | 05/12/ | | | | 2019 | | +--------+--------+ + Encounter Details +--------+ + + + + | Date | Type | Department | Care Team | Description | +--------+ + + + + | 05/12/ | Telephone | [facility] | Brynn Bahena | Other | | 2019 | | [facility] RAD[facility] | MD Ruchi [address] | | | | | [facility]OGY CLIN[facility] [address] | [place], [place] | | | | | [address] [place] | [address] | | | | | [place] [address] | | | | | | [phone] | | | +--------+ + + + [...] Encounter - Maria Victoria Catherine RN - 05/12/2019 9:22 AM PDTPatient returns call, he states his symptoms have resolved with the oxybutin, but is still requesting to establish w [facility] in [place]. Referral placed. Patient is also requesting that future prescript ions be sent to [facility] in [place]. Electronically signed by Maria Victoria Catherine RN at 2018 9:28 AM PDTTelephone Encounter - Maria Victoria Catherine RN - 05/12/2019 9:15 AM PDTAttempte d to call patient, unable to reach. Left message for him to call back. Electronically sign ed by Maria Victoria Catherine RN at 05/12/2019 9:16 AM PDTTelephone Encounter - Maria Victoria Catherine RN - 05/12/2019 9:15 AM PDT----- Message from Brynn Bahena MD sent at 05/11/2019 15:52 P DT ----- Please check in with Pablito to see how he is doing with the Oxybutynin? Does he need a refe rral to the Urologist in [place] for further evaluation and treatment of urinary symptoms? documented in this enc ounter Plan of Treatment +--------+ + + + + | Date | Type | Specialty | Care Team | Description | +--------+ + + + + | 02/02/ | Appointment | Radiation Oncology | Brynn Bahena | | | 2020 | | | MD Marcelo [address] | | | | | | [place], [place] | | | | | | [id number] | | | | | | | | +--------+ + + + + + + +--------+ + + | Name | Type | Priori | Associated Diagnoses | Order Schedule | | | | ty | | | + + +--------+ + + | Urology, External - | Outpatient | Routin | Prostate Cancer - | Ordered: 05/12/2019 | | AMB Referral | Referral | e | Clinical T2c [place] | | | | | | 4+3 carcinoma | | + + +--------+ + + documented as of this encounter Visit Diagnoses + + | Diagnosis | + + | Prostate Cancer - Clinical T2c Joy[place] 4+3 carcinoma - Primary Malignant neoplasm of | | prostate | + + documented in this encounter"
--- OUTSIDE RECORDS SUMMARY | ~2020-05-08 | XMS | Encounter Summary ---
Demographics + + + | Address | [address] | | | [place] [address] | + + + | Home Phone | | + + + | Preferred Language | Unknown | + + + | Marital Status | Single | + + + | Amish Affiliation | Unknown | + + + | Race | White | + + + | Ethnic Group | Not or | + + + Author + + + | Author | [facility] | | | and [place] | + + + | Organization | [facility] | | | [...] Team Providers + +------+ + | Care Call Center Dispatcher Name | Role | Phone | + [...] Closed | | Radiology | Diagnoses | Shruti | [address] | | | | | Prostate | Brynn Hopper | [address] [place] | | | | | cancer (HCC) | MD [address] | [place], | | | | | Procedures | [address] | [place] [address] | | | | | CT | [place], | Phone: | | | | | Treatment | [place] [address] | [phone] | | | | | Plan Complex | Phone: | Fax: | | | | | | [phone] | [phone] | | | | | | Fax: | | | | | | | [phone] | | +--------+--------+ + + + + Reason for Visit Diagnostic/Screening (Routine) +--------+--------+ + + + + | Status | Reason | Specialty | Diagnoses / | Referred By | Referred To | | | | | Procedures | Contact | Contact | +--------+--------+ + + + + | Closed | | Radiology | Diagnoses | Riegert, | [address] | | | | | Prostate | Brynn Hopper, | [address] | | | | | cancer (HCC) | MD [address] | [place], | | | | | Procedures | [address] | [place] [address] | | | | | CT | [place], | Phone: | | | | | Treatment | [place] [address] | [phone] | | | | | Plan Complex | Phone: | Fax: | | | | | | [phone] | [phone] | | | | | | Fax: | | | | | | | [phone] | | +--------+--------+ + + + + Encounter Details +--------+ + + + + | Date | Type | Department | Care Team | Description | +--------+ + + + + | 07/16/ | Hospital | [facility] | Brynn Bahena | Prostate Cancer - | | 2017 | Encounter | MED CTR [address] | MD Ruchi [address] | Clinical T2c [place] | | | | [place], | [address] [place] | 4+3 carcinoma | | | | [place] [address] | [address] | | | | | [phone] | | | +--------+ + + + [...] [address] | | | | | | [place] | | | | | | [address] | | | | | | | | +--------+ + + + + documented as of this encounter Procedures + +--------+ + + + | Procedure Name | Priori | Date/Time | Associated Diagnosis | Comments | | | ty | | | | + +--------+ + + + | CT TREATMENT PLAN | Routin | 07/16/2017 | Prostate Cancer - | Results for this | | COMPLEX | e | 3:35 PM | Clinical T2c [place] | procedure are in the | | | | PDT | 4+3 carcinoma | results section. | + +--------+ + + + documented in this encounter Results CT Treatment Plan Complex (07/16/2017 3:35 PM PDT) + + | Specimen | + + | | + + + + + | Narrative | Performed At | + + + | No Radiologist | [facility] | | interpretation, please see Chart Review. | | + + + + +---------+ + + | Performing | Address | City/State/Zipcode | Phone Number | | Organization | | | | + +---------+ + + | [facility] | | | | + +---------+ + + documented in this encounter Visit Diagnoses + + | Diagnosis | + + | Prostate Cancer - Clinical T2c [place] 4+3 carcinoma Malignant neoplasm of prostate | + + documented in this encounter"
--- OUTSIDE RECORDS SUMMARY | ~2020-05-08 | XMS | Encounter Summary ---
Demographics + + + | Address | [address] | | | [place] [address] | + + + | Home Phone | | + + + | Preferred Language | Unknown | + + + | Marital Status | Single | + + + | Adventist Affiliation | Unknown | + + + | Race | White | + + + | Ethnic Group | Not or | + + + Author + + + | Author | [facility] | | | and [place] | + + + | Organization | [facility] | [...] Team Providers + +------+ + | Care Jewel Oliving Machine Operator Name | Role | Phone | + +------+ + | Pranav Auguste MD | PCP | | + +------+ + Encounter Details +--------+ + + + + | Date | Type | Department | Care Team | Description | +--------+ + + + + | 09/14/ | Orders Only | [facility] | Brynn Bahena | Malignant neoplasm | | 2017 | | [facility] RAD[facility] | MD Ruchi [address] | of prostate (HCC) | | | | ONCOLOGY CLINIC [address] | [place], [place] | (Primary Dx) | | | | [address] [place] | [address] | | | | | [place] [address] | | | | | | [phone] | | | +--------+ + + + [...] [place] | | | | | | [address] | | | | | | | | +--------+ + + + + + +------+--------+ + + | Name | Type | Priori | Associated Diagnoses | Order Schedule | | | | ty | | | + +------+--------+ + + | PSA, Diagnostic | Lab | Routin | Malignant neoplasm | Expected: | | | | e | of prostate (HCC) | 12/13/2017, Expires: | | | | | | 09/14/2018 | + +------+--------+ + + documented as of this encounter Visit Diagnoses + + | Diagnosis | + + | Malignant neoplasm of prostate (HCC) - Primary Malignant neoplasm of prostate | + + documented in this encounter"
--- OUTSIDE RECORDS SUMMARY | ~2020-05-08 | XMS | Encounter Summary ---
Demographics + + + | Address | [address] | | | [place] [address] | + + + | Home Phone | | + + + | Preferred Language | Unknown | + + + | Marital Status | Single | + + + | Scientologist Affiliation | Unknown | + + + [...] Team Providers + +------+ + | Care Contracting Manager Name | Role | Phone | [...] | | Prostate | Brynn Hopper | Ed [place] | | | | | cancer (HCC) | MD [address] | [place], | | | | | Procedures | [address] | [place] [address] | | | | | [place] | [place], | Phone: | | | | | Treatment | [place] [address] | [phone] | | | | | Plan Complex | Phone: | Fax: | | | | | | [phone] | [phone] | | | | | | Fax: | | | | | | | [phone] | | +--------+--------+ + + + + Reason for Visit + + + | Reason | Comments | + + + | Consult | | + + + | Prostate Cancer | | + + + Evaluate & Treat (Routine) +--------+ + + + + + | Status | Reason | Specialty | Diagnoses / | Referred By | Referred To | | | | | Procedures | Contact | Contact | +--------+ + + + + + | Closed | Specialty | Radiation | Diagnoses | Sisandrew, | Shruti, | | | Services | Oncology | Malignant | Kevin Willett MD | Brynn Hopper MD | | | Required | | neoplasm of | [address] | [address] | | | | | prostate | [address] [place] | [address] | | | | | (HCC) | [place], [place] | [place], | | | | | prostate ca | [address] | [place] [address] | | | | | Procedures | Phone: | Phone: | | | | | [place] OFFICE | [phone] | [phone] | | | | | OUTPATIENT | Fax: | Fax: | | | | | VISIT 25 | [phone] | [phone] | | | | | MINUTES | | | +--------+ + + + + + Encounter Details +--------+ + + + + | Date | Type | Department | Care Team | Description | +--------+ + + + + | 07/13/ | Hospital | [facility] | Brynn Bahena | Prostate Cancer - | | 2017 | Encounter | MED CTR RADIATION | MD Ruchi [address] | Clinical T2c Joya | | | | ONCOLOGY CLINIC [address] | [place], [place] | 4+3 carcinoma | | | | [address] | [address] | (Primary Dx) | | | | [place] [address] | | | | | | [phone] | | | +--------+ + + + [...] + + + | Blood Pressure | 127/62 | 07/13/2017 8:39 AM | | | | | PDT | | + + + + + | Pulse | 75 | 07/13/2017 8:39 AM | | | | | PDT | | + + + + + | Temperature | 36.4 C (97.5 F) | 07/13/2017 8:39 AM | | | | | PDT | | + + + + + | Respiratory Rate | 16 | 07/13/2017 8:39 AM | | | | | PDT | | + + + + + | Oxygen Saturation | 99% | 07/13/2017 8:39 AM | | | | | PDT | | + + + + + | Inhaled Oxygen | - | - | | | Concentration | | | | + + + + + | Weight | 89.4 kg (197 lb 1.5 | 07/13/2017 8:39 AM | | | | oz) | PDT | | + + + + + | Height | 189 cm (6' 2.41") | 07/13/2017 8:39 AM | | | | | PDT | | + + + + + | Body Mass Index | 25.03 | 07/13/2017 8:39 AM | | | [...] encounter Progress Notes Brynn Willis MD - 07/13/2017 8:55 AM PDT Radiation Oncology Consultation Chief Complaint/ICD10 ICD-10-CM ICD-9-CM 1. Prostate Cancer - Clinical T2c [place] 4+3 carcinoma C61 185 History of Present Illness: Pablito Hollins is a 62 y.o. 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 Pathologic stage IIB, pT2c pN0, [place] 3+4=7, involving 20% of gland bilaterally, PNI pres ent, Positive apical margin bilaterally, extraprostatic extension indeterminate, negative fo r SV invasion. He has undergone prostatectomy and presents to discuss salvage radiation opti ons due to persistent PSA at 0.54. Presented to Dr. Martni with worsening obstructive urinary symptoms in Sep 2016. PSA eleva denton at 4.25, increased from 3.0 the year prior. Clinic notes describe a prostate nodule on exam and PSA remained elevated at 4.23 in December 2016. He underwent prostate biopsy on . US measured gland at 22cc. Pathology: Right base, Joya 3+3=6, 2%; Left mid Gleaso n 4+3=7, 51%; Left apex Joya 3+4=7, 69%, left transition Gl 3+4=7, 6%. He was started on Bicalutamide preoperatively on 02/03/17. Prostatectomy performed by Dr. Martin on 03/30/17. FINAL PATHOLOGIC DIAGNOSIS: A. Lymph node, right iliac obturator, dissection: - Two lymph nodes, negative for metastatic carcinoma (0/2). B. Lymph node, left iliac obturator, dissection: - Two lymph nodes, negative for metastatic carcinoma (0/2). C. Prostate, resection: - Prostatic adenocarcinoma with the following features: - Histologic type: Adenocarcinoma, acinar type. - Joya score: 3+4 = 7. - Grade group: 2. - Tumor location: Right and left prostate lobes. - Tumor quantitation: Tumor involves approximately 20% of prostatic tissue. - Extraprostatic extension: Indeterminate. (See Comment) - Seminal vesicle invasion: Not identified. - Urinary bladder neck invasion: Not identified. - Perineural invasion: Present. - Angiolymphatic invasion: Not identified. - Surgical margins: Surgical margins involved by prostatic adenocarcinoma to incl ude right and left apex margins. - Prostate size: 4.5 x 4 x 3.5 cm, 34 gm. - Surgical pathology stage: At least pT2c, pN0. (see comment) COMMENT: Histologic sections show bilateral prostatic adenocarcinoma confined to the mid to lower lo bes of prostate. Prostatic adenocarcinoma extends to the inked and cauterized surgical mar gins in the bilateral apex. Therefore, extraprostatic extension of prostatic adenocarcinom a cannot be excluded at the prostatic apex. Postoperatively he has regained urinary control with rare stress leakage. However, he cont inues to have severe obstructive urinary symptoms with an AUA of 25. Including waking 5 annita es a night. He has a slow stream. Dr. Martin is concerned about an anastomotic stricture. Symptoms have improved with conservative management and decreased caffeine. Urethral incis ion remains an option. He currently drinks at least 4-6 cups of coffee. PSA: 06/27/17 0.54 04/26/17 0.63 06/27/17 0.54 01/11/17 4.23 09/19/16 4.25 Pablito Hollins was seen today as a new patient evaluation at the request of Dr.John Brennon Maritn for the evaluation and consideration of radiotherapeutic treatment in our clinic. Review of Systems Constitutional: Negative for chills and fever. HENT: Positive for hearing loss. Negative for congestion, sinus pain and sore throat. Eyes: Negative for blurred vision and double vision. Respiratory: Negative for cough, hemoptysis, sputum production, shortness of breath and whe ezing. Cardiovascular: Positive for palpitations. Negative for chest pain and leg swelling. Gastrointestinal: Positive for constipation (Hemorrhoids). Negative for abdominal pain, blo od in stool, heartburn, nausea and vomiting. Genitourinary: Positive for frequency. Negative for dysuria and urgency. Musculoskeletal: Positive for back pain and joint pain. Skin: Negative for itching and rash. Neurological: Positive for tingling. Negative for dizziness, weakness and headaches. Tremor s: Numbness in feet. Endo/Heme/Allergies: Does not bruise/bleed easily. Psychiatric/Behavioral: Positive for depression. The patient is nervous/anxious. Current Outpatient Prescriptions Medication Sig Dispense Refill [...] capsule Take 2,000 mg by mouth nightly. indomethacin (INDOCIN SR) 75 mg CR capsule Take 75 mg by mouth 2 times daily (with rocky kfast & dinner). Loratadine 10 MG CAPS Take 10 mg by mouth Daily. Multiple Vitamin (MULTI-VITAMIN PO) Take 1 tablet by mouth Daily. oxyCODONE-acetaminophen (PERCOCET) 5-325 mg per tablet take 1 tablet by mouth four time s a day MAY FILL 02-06-17 0 tiZANidine (ZANAFLEX) 4 mg tablet Take 4 mg by mouth 3 times daily. 0 traMADol (ULTRAM) 50 mg tablet Take 100 mg by mouth 4 times daily. 0 traZODone (DESYREL) 100 mg tablet Take 150 mg by mouth nightly. 0 No current facility-administered medications for this encounter. Allergies No active allergies Intolerance Allergen Reactions Codeine Nausea Only Past Medical History: Diagnosis Date Depression with anxiety Full dentures Heart murmur Hyperlipidemia Lumbar disc disease Nodular prostate with urinary obstruction Prostate cancer (HCC) Past Surgical History: Procedure Laterality Date BIOPSY 01/25/2017 Procedure: US GUIDED BIOPSY - Location: [facility] COLONOSCOPY INGUINAL HERNIA REPAIR PRE-MALIGNANT / BENIGN SKIN LESION EXCISION Left Left groin PROSTATECTOMY N/A 03/30/2017 Procedure: Radical Prostatectomy; Surgeon: Kevin Martin MD; Location: [facility] MAIN OR Family History Problem Relation Age of Onset Cancer Mother breast Brain cancer Brother Lymphoma Brother Social History Social History Marital status: Single Spouse name: N/A Number of children: N/A Years of education: N/A Occupational History Not on file. Social History Main Topics Smoking status: Current Every Day Smoker Packs/day: 1.00 Years: 49.00 Types: Cigarettes Smokeless tobacco: Former User Comment: smoking 1 cigarette per day Alcohol use No Comment: . quit drinking in 2006 Drug use: No Sexual activity: Not on file Other Topics Concern Not on file Social History Narrative No narrative on file Questionnaires: Have you ever had radiation treatment: no Do you have a pacemaker or ICD: no Are you claustrophobic? no Do you have a connective tissue disorder such as Lupus, Scleroderma, or other: no Do you have the ability to become : no Vital Sign Current: Last 24 Hours: Temperature Temp: 36.4 C (97.5 F) No Data Recorded Blood Pressure BP: 127/62 No Data Recorded Pulse Pulse: 75 No Data Recorded Respirations Resp: 16 No Data Recorded Pain Rating Rest Pain Rating (0-10): Rest: 8 No Data Recorded Pain Rating Activity Pain Rating (0-10): Activity: 8 No Data Recorded O2 Sat SpO2: 99 % on liters/minute No Data Recorded Current Wt Current Wt: 89.4 kg (197 lb 1.5 oz) Height: 189 cm (6' 2.41") Admit Wt Admit Wt: 89.4 kg (197 lb 1.5 oz) Body mass index is 25.03 kg/m. Pain Assessment Are you having pain? yes Where does it hurt? Lower back due to degenerative disc disease Rate your pain from 0-10:8 Describe your pain? sharp What do you use for pain medication? Oxycodone 5/325 1 tab every 4 hours Pain rating after medication 0-10: 8 What else have you tried to relieve pain? positioning Questionnaires: IPSS Questionnaire (AUA-7): Over the past [...] symptomatic 8-19 moderately symptomatic 20-35 severely symptomatic Physical Exam: General: Healthy appearing thin man in no acute medical distress. KPS: 80 HEENT: Pupils equal, round and reactive to [...] intact. Moves all 4 extremities normally with abnormal gait due to chronic back pain. Psychiatric: Appropriate. Labs: See HPI Imaging: No recent results. Assessment: ICD-10-CM ICD-9-CM 1. Prostate Cancer - Clinical T2c [place] 4+[address] Treatment Plan Complex Pablito Hollins is a 62 y.o. 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 Pathologic stage IIB, pT2c pN0, Joya 3+4=7, involving 20% of gland bilaterally, PNI pres ent, Positive apical margin bilaterally, extraprostatic extension indeterminate, negative fo r SV invasion. He has undergone prostatectomy and presents to discuss salvage radiation opti ons due to persistent PSA at 0.54. Today, I reviewed with Pablito and his the pathologic diagnosis and indications for salv age radiation. He has undergone prostatectomy with multiple adverse pathologic features incl uding positive margins and PNI. Additionally, postoperative PSA remains detectable at a leve l of 0.54, indicating residual prostate cancer. These are strong indicators of persistent local disease and expected benefit from salvage radiation to the prostate fossa. Given darwin s presenting and pathologic factors there is not a need for further staging studies such as bone scan or MRI pelvis. He has healed adequately from surgery and treatment could be started at any time. Early sa lvage radiation is more effective than delayed. We did discuss his continued urinary frequen cy. I reiterated the recommendation for decreased caffeine, as this is a bladder irritant. H e will be at additional risk for exacerbation of these symptoms during radiation. I reviewed the procedures involved in radiation treatment planning and delivery. We discus sed the potential short and long-term side effects. I reviewed the options of prostate matthieu a radiation alone, the option of adding pelvic lymph node coverage and the option of adding short course androgen deprivation. I do not feel strongly about adding pelvic lymph node co verage, particularly after negative lymph node sampling. The option of the addition of shor t course androgen deprivation could be considered. In intact prostate with low-intermediate risk disease (Joya 3+4) there is evidence that the benefit of ADT may be marginal, if an y. Results of prospective randomized study, RTOG 0534 (SPPORT) are still pending to my kno wledge, thus definitive recommendations for pelvic coverage and/or addition of androgen depr ivation the post prostatectomy setting remain unclear. I opted against ADT, in favor of pro ceeding directly to fossa radiation alone. He continues on bicalutamide, I don t feel th is is necessary but will leave management to Dr. Martin regarding this medication. Radiation will cover the prostate fossa with 68 Gy in 34 fractions. IMRT treatment planni ng will be utilized to spare neighboring critical structures including the rectum, bladder a nd small bowel. Follow-up for CT simulation, next available. Anticipate radiation to start in next few weeks. Pablito is eager to proceed with treatment. The information found at www.rtanswers.org was advised for further information specific to radiation therapy. Pablito was encouraged to call our clinic with any further questions or co ncerns. A visit summary was given to the patient prior to leaving clinic today. Thank you for allowing me to participate in the care of Pablito. If you should have any quest ions regarding this evaluation, please do not hesitate to contact me. Brynn To M.D. Radiation Oncologist Department of Radiation Oncology [facility] Office: [phone] CC: Patient Care Team: Pranav Auguste MD as PCP - General (Family Medicine) Brynn Willis MD as Physician (Radiation Oncology) Kevin Martin MD as Physician (Urology) documented in thi s encounter Plan of Treatment +--------+ + + + + | Date | Type | Specialty | Care Team | Description | +--------+ + + + + | 02/02/ | Appointment | Radiation Oncology | Brynn Bahena | | | 2020 | | | MD Ruchi [address] | | | | | | [place], [place] | | | | | | [address] | | | | | | | | +--------+ + + + + documented as of this encounter Results CT Treatment Plan Complex [...] + | Prostate Cancer - Clinical T2c [place] 4+3 carcinoma - Primary Malignant neoplasm of | | prostate | + + documented in this encounter
--- OUTSIDE RECORDS SUMMARY | ~2020-05-08 | XMS | Encounter Summary ---
Demographics + + + | Address | [address] | | | [place] [address] | + + + | Home Phone | | + + + | Preferred Language | Unknown | + + + | Marital Status | Single | + + + | Roman Catholic Affiliation | Unknown | + + + [...] Team Providers + +------+ + | Care Explosive Specialist Name | Role | Phone | + +------+ + | Pranav Auguste MD | PCP | | + +------+ + Encounter Details +--------+ + + + + | Date | Type | Department | Care Team | Description | +--------+ + + + + | 09/14/ | Documentati | [facility] | Brynn Bahena | | | 2016 | on | MED [facility] RADIATION | MD Marcelo Hopper [address] [facility] | | | | | [facility] [address] [facility] | | | | | [address] | [phone] | | | | | [place] [id number] | | | | | | [phone] | | | +--------+ + + + [...] encounter Progress Notes Brynn Willis MD - 09/14/2017 11:59 PM PST Radiation Treatment Summary Diagnosis: Pablito Hollins is a 62 y.o. 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 Pathologic stage IIB, pT2c pN0, [place] 3+4=7, involving 20% of gland bilaterally, PNI pres ent, Positive apical margin bilaterally, extraprostatic extension indeterminate, negative fo r SV invasion. He has undergone prostatectomy and is now completing salvage radiation due t o persistent PSA at 0.54. Pablito was treated in our clinic between the dates of 07/24/2017 - 09/14/2017. Course: Pelvis Plan ID Fractions First Treatment Last Treatment Expected End of Treatment ProstateFossa 34 / 34 07/24/2017 09/14/2017 Intent: Post prostatectomy Salvage, definitive Prescription: Pelvis (Plan ID - ProstateFossa) - Rx Dose 6,800cGy (Status - Treatment Approved) - Treatment Technique: VMAT Treatment Summary: Course: Pelvis Treatment Site Energy Dose/Fx (cGy) #Fx Dose Correction (cGy) Total Dose (cGy) Start Date E nd Date Elapsed Days ProstateFossa 10X 200 0 6,800 07/24/2017 09/14/2017 52 Total: 6,800 07/24/2017 09/14/2017 52 Assessment: Pablito Hollins completed the planned course of course of external beam radiation ther apy uneventfully and without any unexpected complications. Disposition: 1. Follow-up in our clinic: 3 months with PSA 2. Follow-up with Dr. Martin as directed. 3. Coordination of care will be arranged between providers for future visits. Additional follow-up care will be planned according to applicable NCCN guidelines and [facility] protocol with appropriate labs and imaging as indicated by diagnosis and stage. Pablito Hollins was encouraged to call our clinic with any further questions or concerns. Thank you for allowing me to participate in his care. If you should have any questions rega rding this treatment summary, please do not hesitate to contact me. Brynn Bahena MD Radiation Oncologist Department of Radiation Oncology [facility] This note was transcribed using [place] speech recognition software. As a result, there may be unintended for medical and/or spelling errors. Every attempt is made to correct dictati on. If there are any questions or errors please contact our office. CC: Patient Care Team: Pranav Auguste MD as PCP - General (Family Medicine) Brynn Bahena MD as Physician (Radiation Oncology) Kevin Martin MD as Physician (Urology) Naveed Leonard MD (Specialist/Technologist,Other - Role Player) documented in this encounter Plan of Treatment +--------+ + + + + | Date | Type | Specialty | Care Team | Description | +--------+ + + + + | 02/02/ | Appointment | Radiation Oncology | Brynn Bahena | | | 2020 | | | MD Marcelo Hopper [address] | | | | | | [facility] [place] | | | | | | [phone] | | | | | | | | +--------+ + + + + documented as of this encounter Visit Diagnoses Not on filedocumented in this encounter"
[~2020-05-08 17:03] MED LIST changes: +ALPRAZOLAM1 MG PO; +DAILY MULTIPLE1 EACH PO; +HYDROMORPHONE HC2 MG PO; +HYDROXYZINE PAM25 MG PO; +INDOMETHACIN75 MG PO; +LIPITOR40 MG PO; +ULTRAM50 MG PO; +ZANAFLEX4 MG PO
--- OUTSIDE RECORDS SUMMARY | 2020-05-08 17:06 | XMS ---
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 Tamela has no Care Guidelines for this patient. Francis VISIT COUNT (12 MO.) 1 ROSANNE Sanchez TOTAL 1 NOTE: Visits indicate total known visits. ED/UCC VISIT TRACKING (12 MO.) 05/08/2020 17:04 ROSANNE Alaniz [place] TYPE: Emergency COMPLAINT: - RIGHT SIDE ABD PAIN INPATIENT VISIT TRACKING (12 MO.) No inpatient visits to display in this time frame [id number]
[2020-05-08] MEDS ORDERED: CYCLOBENZAPRINE10 MG PO (17:44)
[2020-05-08] MEDS ORDERED: DIVALPROEX SOD500 M1 PO (17:44)
[2020-05-08] MEDS ORDERED: DICLOFENAC SOD100 G1 TOP (17:44)
[2020-05-08] MEDS ORDERED: DULOXETINE HCL30 MG PO (17:45)
[2020-05-08] MEDS ORDERED: CLARITIN10 M2 PO (17:45)
[2020-05-08] MEDS ORDERED: ROPINIROLE HCL3 MG PO (17:46)
[2020-05-08] MEDS ORDERED: OXYBUTYNIN CHLO15 MG PO (17:47)
== END 2020-05-08 23:46 | disposition home or self-care (01) ==
LOC: ED 17:03
DX: S39.011A Strain of muscle, fascia and tendon of abdomen, initial encounter (principal); F41.9 Anxiety disorder, unspecified; E78.00 Pure hypercholesterolemia, unspecified; F17.200 Nicotine dependence, unspecified, uncomplicated; Z79.899 Other long term (current) drug therapy; X50.1XXA Overexertion from prolonged static or awkward postures, initial encounter
CPT/HCPCS: 74177; 80053; 81001; 83690; 85025; 99284-25; Q9967

== ENCOUNTER 2022-02-17 07:35 | Day surgery (SDC) | payer MEDICARE, OTHER ==
[~2022-02-17] VITALS: Ht 190.5 cm; Wt 84.1 kg
[~2022-02-17 07:35] MED LIST changes: +CLARITIN10 M2 PO; +CYCLOBENZAPRINE10 MG PO; +DICLOFENAC SOD100 G1 TOP; +DIVALPROEX SOD500 M1 PO; +DULOXETINE HCL30 MG PO; +OXYBUTYNIN CHLO15 MG PO; +ROPINIROLE HCL3 MG PO
--- NOTE | 2022-02-17 10:48 | NUR ---
02/17/22 1048 Mariann Calderon 1036 REPORT RECIEVED FROM MARYLIN TELLO. PATIENT IS AROUSABLE BY VOICE BUT FALLS ASLEEP QUICKLY. BREATHING EQUAL AND UNLABORED. PATIENT IS ON 6 LITERS VIA MASK. IVF INFUSING LINE IS PATENT. 1040 PATIENT IS AROUSABLE BY VOICE BUT FALLS ASLEEP QUICKLY. BREATHING EQUAL AND UNLABORED. PATIENT IS ON 6 LITERS OF OXYGEN VIA MASK. IVF INFUSING. 1045 PATIENT IS AROUSABLE BY VOICE BUT FALLS ASLEEP QUCIKLY BREATHING EQUAL AND UNLABORED. PATIENT IS ON 2 LITERS VIA MASK. OXYGEN SATURATIONS ARE ABOVE 95%. IVF INFUSING.
--- NOTE | 2022-02-17 12:56 | OR ---
[facility] [address] [place], [place] [address] Signed DATE OF OPERATION: 02/17/2022 SURGEON: Orin Hansen MD PREOPERATIVE DIAGNOSES: 1. Hyperplastic polyps in 2013, age 58. 2. Chronic constipation. 3. Prostate cancer, status post radical prostatectomy and radiation therapy. POSTOPERATIVE DIAGNOSES: 1. A 15 mm pedunculated polyp at left lateral position, 10 cm (snare, tattoo). 2. A 7 mm polyp at 20 cm. 3. A 12 mm polyp, proximal transverse colon (snare). 4. A 4 mm polyp at hepatic flexure. 5. A 12 mm sessile polyp (snare, clip). 6. A 6 mm polyp at 25 cm. 7. Minimal sigmoid diverticulosis. 8. Minimal distal radiation proctitis. PROCEDURES: 1. Colonoscopy with snare polypectomy, hot biopsy, and injection of tattoo and application of clip. 2. Rigid proctoscopy. INDICATIONS: Tiffanie is a 66-year-old gentleman asked to see me for a followup screening colonoscopy. He underwent a colonoscopy in 2013 at the age of [address] Tiwari. He had hyperplastic polyps removed. He required monitored anesthesia care at that time because of his daily need of opioids. He said he is often constipated from the opioids. He is very familiar with [employer]ira[employer]. There is no family history of colon cancer or polyps. He did undergo a radical prostatectomy, followed by radiation therapy. In the office I gave Tiffanie a pamphlet on colonoscopy. We reviewed the nature of the test. There is risk including, but not limited to gas bloating, crampy abdominal pain, bleeding, perforation requiring surgery, and missed diagnosis. He had expressed understanding and wished to proceed. PROCEDURE NOTE: Tiffanie was taken into our endoscopy suite and placed in the left lateral decubitus position. He was given IV sedation with propofol per our nurse consultative sales associate. A digital rectal exam was performed. He has good sphincter tone, not much in the way of any external hemorrhoids. The prostate is gone. The adult colonoscope had been introduced Electronically Signed By: ORIN HANSEN MD 02/17/22 1256 PATIENT NAME: TIFFANIE RODRIGUEZ OPERATIVE REPORT DATE OF : 51 REPORT #: [id number] PHYSICIAN: ORIN HANSEN MD PCP: DARLIN MELENDEZ MD REPORT IS CONFIDENTIAL AND NOT TO BE RELEASED WITHOUT AUTHORIZATION [facility] [address], [place] [address] Signed and advanced under direct visualization of the camera up into the cecum itself. It took a little extra sedation and abdominal compression in order to advance the scope all the way to the cecum. We could easily see the appendiceal orifice and ileocecal valve. We had taken pictures throughout for photodocumentation. We used our snare to remove that polyp in the base of the cecum and then placed a clip over to bring the mucosa back together. The other polyps removed with the combination of hot biopsy forceps and/or the snare. The largest polyp is back in the rectum in the left lateral position at 10 cm. We had placed a tattoo at that area. We had inserted the rigid proctoscope and found that to be in the left lateral position 10 cm from the anal verge. We also retroflexed the flexible scope and we did not see any specific pathology above the anal canal. He had just a little bit of radiation proctitis. After this, the gas was suctioned out, colonoscope removed. Tiffanie tolerated the procedure quite well. RECOMMENDATIONS: I will see Tiffanie back in my office in 7 to 14 days to review his results. Orin Hansen MD [facility]/MODL /[id number] cc: MD Dr. Darlin Oliveira Patient Chart Copies: ORIN HANSEN MD ~ Electronically Signed By: ORIN HANSEN MD 02/17/22 1256 PATIENT NAME: TIFFANIE RODRIGUEZ OPERATIVE REPORT DATE OF : 51 REPORT #: [id number] PHYSICIAN: ORIN HANSEN MD PCP: DARLIN MELENDEZ MD REPORT IS CONFIDENTIAL AND NOT TO BE RELEASED WITHOUT AUTHORIZATION
--- NOTE | 2022-02-21 08:51 | PATH ---
[facility] [address] [facility] [place] [address] Signed SPECIMEN(S): A POLYP AT 10 CM SPECIMEN(S): B POLYP AT 20 CM SPECIMEN(S): C PROXIMAL TRANSVERSE COLON POLYP SPECIMEN(S): D HEPATIC FLEXURE POLYP SPECIMEN(S): E CECAL POLYP SPECIMEN(S): F POLYP AT 25 CM SPECIMEN SOURCE: A. POLYP AT 10 CM B. POLYP AT 20 CM C. PROXIMAL TRANSVERSE COLON POLYP D. HEPATIC FLEXURE POLYP E. CECAL POLYP F. POLYP AT 25 CM CLINICAL HISTORY: Colonoscopy. 2013 hyperplastic polyps. FINAL PATHOLOGIC DIAGNOSIS: A. Colon, polyp at 10 cm, polypectomy: - Fragments of tubular adenoma with focal high-grade dysplasia. - Negative for malignancy. B. Colon, polyp at 20 cm, polypectomy: - Fragments of tubular adenoma. - Negative for high-grade dysplasia or malignancy. C. Colon, proximal transverse, polyp, polypectomy: - Fragments of tubular adenoma. - Negative for high-grade dysplasia or malignancy. D. Colon, hepatic flexure, polyp, polypectomy: - Fragments of tubular adenoma. - Negative for high-grade dysplasia or malignancy. E. Colon, cecum, polyp, polypectomy: - Cauterized submucosal fibroadipose tissue only. - No mucosa present for evaluation. F. Colon, polyp at 25 cm, polypectomy: - Tubular adenoma. - Negative for high-grade dysplasia or malignancy. NAL:cml:C2NR MICROSCOPIC EXAMINATION: Histologic sections of all submitted blocks are examined by light microscopy. PATIENT NAME: TIFFANIE RODRIGEUZ PATHOLOGY DATE OF : 51 REPORT #: [id number] PHYSICIAN: JUDITH OTTO PCP: ARSEN MELENDEZ MD REPORT IS CONFIDENTIAL AND NOT TO BE RELEASED WITHOUT AUTHORIZATION [facility] [address] [place], [place] [address] Signed These findings, together with the gross examination, support the pathologic diagnosis. GROSS DESCRIPTION: Six specimens are received in six containers, labeled "JL." A. The specimen, labeled "JL, colon polyp at 10 cm," is received in formalin and consists of three brandon soft tissue fragments that measure 0.6-1.6 cm in greatest dimension. Cassette Summary: (A1) Two polyps, sectioned, one inked (A2) One polyp, serially sectioned B. The specimen, labeled "JL, colon polyp at 20 cm," is received in formalin and consists of two brandon soft tissue fragments that measure 0.2-0.3 cm in greatest dimension. The specimen is entirely submitted in cassette (B1). C. The specimen, labeled "JL, proximal transverse colon polyp," is received in formalin and consists of five brandon soft tissue fragments that measure 0.1-0.3 cm in greatest dimension. The specimen is entirely submitted in cassette (C1). D. The specimen, labeled "JL, hepatic flexure polyp," is received in formalin and consists of six brandon soft tissue fragments that measure 0.1-0.2 cm in greatest dimension. The specimen is entirely submitted in cassette (D1). E. The specimen, labeled "JL, cecum polyp," is received in formalin and consists of one brandon soft tissue fragment that measures 0.3 cm in greatest dimension. The specimen is entirely submitted in cassette (E1). F. The specimen, labeled "JL, colon polyp at 25 cm," is received in formalin and consists of one brandon soft tissue fragment that measures 0.3 cm in greatest dimension. The specimen is entirely submitted in cassette (F1). JS (under the direct supervision of a pathologist) The Gross Description was prepared using a voice recognition system. The report was reviewed for accuracy; however, sound-alike word errors, addition and/or deletions may occur. If there is any question about this report, please contact Client Services. PERFORMING LABORATORY: The technical component was performed by [facility] [address] (CLIA# [id number]). [facility] PATIENT NAME: TIFFANIE RODRIGUEZ PATHOLOGY DATE OF : 51 REPORT #: [id number] PHYSICIAN: JUDITH OTTO PCP: ARSEN MELENDEZ MD REPORT IS CONFIDENTIAL AND NOT TO BE RELEASED WITHOUT AUTHORIZATION [facility] [address] [place], [place] [address] Signed [place], [address] [facility] [address] [address] (CLIA# [id number]). Diagnostician: Stephany Arevalo MD Pathologist Electronically Signed 02/21/2022 Copies: ~ PATIENT NAME: TIFFANIE RODRIGUEZ PATHOLOGY DATE OF : 51 REPORT #: [id number] PHYSICIAN: JUDITH PATHOLOGY PCP: ARSEN MELENDEZ MD REPORT IS CONFIDENTIAL AND NOT TO BE RELEASED WITHOUT AUTHORIZATION
== END 2022-02-17 11:20 | disposition home or self-care (01) ==
LOC: DS 07:35 → OPS 07:35 → DS 09:00 → OPS 11:20
PROVIDERS: ATTEND Colon & Rectal Surgery
PROC: 0DBH8ZX Excision of Cecum, Via Natural or Artificial Opening Endoscopic, Diagnostic (ICD-10-PCS; 2022-02-17)
PROC: 3E0H8GC Introduction of Other Therapeutic Substance into Lower GI, Via Natural or Artificial Opening Endoscopic (ICD-10-PCS; 2022-02-17)
PROC: 0DBL8ZX Excision of Transverse Colon, Via Natural or Artificial Opening Endoscopic, Diagnostic (ICD-10-PCS; principal; 2022-02-17 09:00)
DX: D12.0 Benign neoplasm of cecum (principal); D12.3 Benign neoplasm of transverse colon; K59.09 Other constipation; Z85.46 Personal history of malignant neoplasm of prostate; K57.30 Diverticulosis of large intestine without perforation or abscess without bleeding; K62.7 Radiation proctitis; K64.4 Residual hemorrhoidal skin tags; F17.210 Nicotine dependence, cigarettes, uncomplicated; F11.90 Opioid use, unspecified, uncomplicated
CPT/HCPCS: J2704; J7121

== ENCOUNTER 2025-04-07 19:24 | Emergency (ER) | payer MEDICARE, OTHER ==
[~2025-04-07] VITALS: Ht 190.5 cm; Wt 69.8 kg
[2025-04-07 20:37] LABS: BLOOD/HGB, URINE TRACE-I (Negative); KETONE, URINE NEGATIVE (Negative); LEUK ESTERASE, URINE NEGATIVE (negative); NITRITE, URINE NEGATIVE (negative)
[2025-04-07 20:41] LABS: EPITHELIAL CELLS, URINE SQUAMOUS 1+ /lpf (0-1+)
[2025-04-07 20:42] LABS: BACTERIA, URINE 1+ /hpf (negative); CRYSTALS, URINE NONE SEEN (0-1+)
[2025-04-07 20:43] LABS: CASTS, URINE HYALINE 1+ \\lpf; REFLEX CULTURE, URINE No (No)
[2025-04-07 20:46] LABS: BASOPHILS 0.5 % (0.2-1.2); EOSINOPHILS 1.1 % (0.8-7.0); LYMPHOCYTES 35.9 % (21.8-53.1); MCH 31.2 PG (25.7-32.2); MCHC 33.3 g/dL (32.3-36.5); MCV 93.7 fL (79.0-92.2); MONOCYTES 12.0 % (5.3-12.2); NEUTROPHILS 50.3 % (34.0-67.9); RBC 3.81 M/uL (4.63-6.08)
[2025-04-07 21:04] LABS: ALCOHOL, MEDICAL <3 ng/dL (<3); ALT (SGPT) 22 U/L (14-59); AST (SGOT) 34 U/L (15-37); GLOMERULAR FILTRATION RATE,EST 46 mL/min (>60); PROTEIN, TOTAL 7.1 g/dL (6.4-8.2); UREA NITROGEN 21 mg/dL (7-18)
[2025-04-07 21:07] LABS: AMPHETAMINES, URINE NEGATIVE (NEGATIVE); BARBITURATES, URINE NEGATIVE (NEGATIVE); BENZODIAZEPINE, URINE NEGATIVE (NEGATIVE); CANNABINOID, URINE POSITIVE (NEGATIVE); COCAINE, URINE NEGATIVE (NEGATIVE); ECSTASY, URINE POSITIVE (NEGATIVE); FENTANYL, URINE NEGATIVE (NEGATIVE); METHADONE, URINE NEGATIVE (NEGATIVE); OPIATES, URINE POSITIVE (NEGATIVE); OXYCODONE, URINE POSITIVE (NEGATIVE); PHENCYCLIDINE, URINE NEGATIVE (NEGATIVE)
[2025-04-07] MEDS ORDERED: LORazepam 1 MG HOME.PACK PO ONE (22:15)
[2025-04-07 22:33] VITALS: BP 139/74
--- NOTE | 2025-04-09 20:15 | EKG ---
[facility] [address] [facility] [place] [address] Signed Normal sinus rhythm Normal ECG When compared with ECG of 16-FEB-2022 07:12, No significant change was found Confirmed by Manjinder Calle MD () on 04/09/2025 8:15:11 PM Electronically Signed By: MANJINDER CALLE MD 04/09/252014 PATIENT NAME: TIFFANIE RODRIGUEZ DREW Electrocardiogram DATE OF : 51 PHYSICIAN: MANJINDER CALLE MD REPORT #: [id number] REPORT IS CONFIDENTIAL AND NOT TO BE RELEASED WITHOUT AUTHORIZATION
== END 2025-04-07 22:25 | disposition home or self-care (01) ==
LOC: ED 19:24
PROVIDERS: Emergency Medicine
DX: R44.3 Hallucinations, unspecified (principal); R10.9 Unspecified abdominal pain; F17.210 Nicotine dependence, cigarettes, uncomplicated; Z79.899 Other long term (current) drug therapy; Z88.5 Allergy status to narcotic agent
CPT/HCPCS: 36415; 70450; 71045; 74176; 80053; 80307; 81001; 84484; 85025; 93005; 93010; 99285-25; G0480